=== PATIENT | male | born 1960 | race Caucasian/White ===

== ENCOUNTER 2024-09-02 00:35 | Emergency (ER) | payer MEDICARE, SELFPAY ==
[2024-09-02 00:36] VITALS: BP 154/97; PULSE 106; RESP 22; TEMP 36.7; O2SAT 100; BMI 19.3
[2024-09-02 01:36] VITALS: BP 116/103; PULSE 98; RESP 18; O2SAT 98
--- NOTE | 2024-09-02 01:40 | RAD_ITS ---
PROCEDURE: CHEST PA AND LATERAL 09/02/2024 REASON FOR EXAM: DYSPNEA TECHNIQUE: CHEST PA AND LATERAL COMPARISON: No FINDINGS: Normal heart size. Hyperinflated lungs. No consolidation, effusion, or pneumothorax. RAD/Chest PA and Lateral IMPRESSION: Emphysema. No acute airspace process. Reading Location: [place] [id number]
--- NOTE | 2024-09-02 01:40 | RAD_ITS ---
PROCEDURE: CHEST PA AND LATERAL 09/02/2024 REASON FOR EXAM: DYSPNEA TECHNIQUE: CHEST PA AND LATERAL COMPARISON: No FINDINGS: Normal heart size. Hyperinflated lungs. No consolidation, effusion, or pneumothorax. RAD/Chest PA and Lateral IMPRESSION: Emphysema. No acute airspace process. Reading Location: [place] [id number]
[2024-09-02 01:48] LABS: Hematocrit 47.4 % (40-54); Hemoglobin 15.8 g/dL (13.0-16.5); Immature Granulocytes Count 0.040 X10^3/uL (0.0-0.0); Mean Corp Hgb Conc 33.3 g/dL (32-36); Mean Corpuscular Volume 85.4 fL (80-94); Mean Platelet Vol. 9.7 fl (6.2-12.0); NRBC Flagged by Analyzer 0 % (0-5); Platelet Count 228 K/mm3 (150-450); RBC Distribution Width CV 13.9 % (11.6-14.6); RBC Distribution Width SD 43.2 fl (35.1-43.9); Red Blood Count 5.55 M/mm3 (4.6-6.2); White Blood Count 11.0 K/mm3 (4.4-11.0)
[2024-09-02 02:00] VITALS: BP 101/70; PULSE 91; RESP 18; O2SAT 92
[2024-09-02 02:35] LABS: Anion Gap 12 (5-15); BUN 15 mg/dL (4-19); BUN/Creat Ratio 21.1 RATIO (10-20); Calcium,Total 9.6 mg/dL (7.6-11.0); Carbon Dioxide 24.3 mmol/L (21.0-32.0); Chloride 102 mmol/L (98-108); Estimated Creatinine Clearance 77.47 ml/min (50-250); Glucose 126 mg/dL (70-99); Magnesium 2.2 mg/dL (1.5-2.2); Potassium 4.0 mmol/L (3.3-5.1); Pro- Brain NATRIURETIC PEPTIDE 99 pg/mL (<=900)
[2024-09-02 03:00] VITALS: BP 110/77; PULSE 89; RESP 20; O2SAT 96
[2024-09-02 03:45] VITALS: O2SAT 92
--- NOTE | 2024-09-02 03:47 | EDS_ITS ---
HPI History of Present Illness Chief Complaint: Shortness of Breath Informant: spouse/S.O. and EMS Narrative Narrative: Patient is a 63-year-old male with past medical history of COPD/emphysema who continues to smoke. He states this evening he began to feel short of breath and he states that he was not having any improvement of his symptoms. reports that after he began to feel short of breath his anxiety worsened which seemed to worsen his symptoms. However as his shortness of breath would not improve and EMS was called. EMS placed him on oxygen which the patient states he does not typically require and gave him breathing treatments as well as IV steroid. Upon arrival to the ER the patient does report feeling better. He denies any known sick contacts. However with his increased shortness of breath he did have concern for potential infection and therefore was brought to the ER for evaluation [id number] Home Medications ?Medication ?Instructions ?Recorded ?Last Taken ?Type ipratropium 0.5 mg-albuterol 3 mg 3 ml inhalation Q6H PRN shortness 09/02/24 Unknown Rx (2.5 mg base)/3 mL nebulization of breath or wheezing #180 mL soln lisinopril 5 mg tablet 5 mg PO DAILY 09/02/24 Unkno wn History prednisone 20 mg tablet 40 mg (2 x 20 mg) PO DAILY 5 days 09/02/24 Unknown Rx #10 tabs Allergy/AdvReac Type Severity Reaction Status Date / Time No Known Allergies Allergy Verified 09/02/24 00:39 Surgical History (Updated 09/02/24 @ 00:52 by Shelbie Matt) H/O hernia repair Social History Smoking Status: Current every day smoker tobacco type: cigarettes ROS ROS ED Constitutional Constitutional ED: Reports other Details: Positive fatigue ; Denies chills or fever(s) ENT ENT ED: Denies sore throat Cardiovascular Cardiovascular: Denies chest pain Respiratory/Chest Respiratory/Chest: Reports cough, dyspnea and dyspnea on exertion Gastrointestinal Gastrointestinal: Reports abdominal pain and other Details: Patient reports that this is chronic in nature ; Denies diarrhea, nausea or vomiting Genitourinary Genitourinary ED: Denies dysuria Musculoskeletal Musculoskeletal: Denies back pain or myalgias Integumentary Denies rash Neurologic Neurologic: Denies headache(s) Psychiatric Psychiatric: Reports anxiety Hematologic/Lymphatic Hematologic/Lymphatic: Denies easy bleeding or easy bruising Allergic/Immunologic Allergic/Immunologic ED: Denies mouth swelling or tongue swelling EXAM Physical Exam Const Vital Signs: 09/02/24 00:36 09/02/24 00:54 09/02/24 01:36 Temperature 98.1 F Temperature Source Oral Pulse Rate 106 H 98 Respiratory Rate 22 H 18 Respiratory Effort Normal Blood Pressure 154/97 H 116/103 H Blood Pressure Mean 116 107 Pulse Ox 100 98 Oxygen Delivery Method Nasal Cannula Room Air Oxygen Flow Rate (L/min) 10 09/02/24 02:00 09/02/24 03:00 09/02/24 03:57 Temperature 98.3 F Temperature Source Pulse Rate 91 89 94 Respiratory Rate 18 20 H 18 Respiratory Effort Blood Pressure 101/70 110/77 95/60 Blood Pressure Mean 80 88 71 Pulse Ox 92 96 95 Oxygen Delivery Method Room Air Oxygen Flow Rate (L/min) Positive well nourished and well developed General Appearance ED: well developed; Negative for pallor HEENT HEENT Narrative: No tongue or lip swelling no oral lesions no airway edema or compromise Eyes PERRL and EOMs intact bilaterally General Eye ED: Negative for scleral icterus Neck supple and no JVD Chest Wall palpation of chest normal Chest Narrative: No bony deformity or crepitance of the chest wall noted Resp Resp Narrative: Patient has mild respiratory distress with tachypnea and mild accessory muscle use Breath sounds are diminished throughout with faint rhonchi and wheezes noted in the bilateral lower lobes slightly greater on the right Cardio regular rate and regular rhythm Rate: other Other Details: Radial and carotid pulses are equal and symmetric Extremity normal to inspection Extremity Narrative: No asymmetric edema no pitting edema negative Homans' sign bilaterally Neuro oriented x3, CN's II-XII intact bilaterally and no sensory deficits noted Sensorium / Orientation: alert Motor Exam: strength 5/5 throughout Psych Mood & Affect: anxious Skin no rashes or lesions noted General Skin Exam: Negative for jaundice or pallor MDM MDM MDM Narrative Medical decision making narrative: Patient arrived to the ER and in mild respiratory distress. With this he was requiring supplemental nasal cannula oxygen to keep his sats greater than 90%. With his history of COPD/emphysema and now worsening shortness of breath there is concern for COPD exacerbation versus pneumonia versus pneumothorax versus congestive heart failure. Secondary to his basic labs with a chest x-ray were obtained. Patient's proBNP is normal and this correlates with his x-ray which revealed no obvious pleural effusion or signs of vascular congestion. Patient also did not have findings for acute blood loss anemia or clinically significant electrolyte abnormality or DEBBIE. Chest x-ray revealed changes consistent with eczema but no acute pathology such as pneumonia or pneumothorax. After patient received steroids and DuoNeb from EMS he did have improvement of his symptoms and his pulse ox was 90 to 92% on room air. The patient was ambulated and his pulse ox remained 90 to 92% on room air. Therefore at this time as the patient's had improvement of symptoms and is no longer requiring supplemental oxygen I do not feel there is need for further workup in the ER or admission and he is safe for discharge with symptomatic care History & Record Review Discussion w/independent historian: EMS personnel, Patient and Significant other Lab Data Attestation: I reviewed the patient's lab results. Labs: Laboratory Results - last 24 hr 09/02/24 00:41 WBC 11.0 RBC 5.55 Hgb 15.8 Hct 47.4 MCV 85.4 MCH 28.5 MCHC 33.3 RDW Std Deviation 43.2 RDW Coeff of Waldemar 13.9 Plt Count 228 MPV 9.7 Immature Gran % (Auto) 0.400 Neut % (Auto) 67.1 Lymph % (Auto) 21.5 [place] % (Auto) 8.4 Eos % (Auto) 2.0 Baso % (Auto) 0.6 Absolute Neuts (auto) 7.4 Absolute Lymphs (auto) 2.37 Nucleated RBC % 0 Sodium 138 Potassium 4.0 Chloride 102 Carbon Dioxide 24.3 Anion Gap 12 BUN 15 Creatinine 0.72 Estim Creat Clear Calc 77.47 Est GFR (MDRD) Non-Af 101 BUN/Creatinine Ratio 21.1 H Glucose 126 H Calcium 9.6 Magnesium 2.2 NT pro BNP II 99 Radiography Diagnostic Testing: Clinical Impression(s) from Imaging Studies Chest X-Ray 09/02/24 01:40 IMPRESSION: Emphysema. No acute airspace process. Reading Location: [place] [address] Chest x-ray as interpreted by the emergency medicine physician reveals emphysematous changes without acute infiltrate pneumothorax or pleural effusion Discharge Plan Triage Chief Complaint: Shortness of Breath ED Provider: Newton Hemphill Dx/Rx/DC Orders Clinical Impression: Acute exacerbation of chronic obstructive pulmonary disease, Tobacco use Instructions: COPD: Wheezing and Chest Tightness, COPD Controlled Breathing Dc Prescriptions: New ipratropium-albuterol 0.5 mg-3 mg(2.5 mg base)/3 mL solution for nebulization 3 ml inhalation Q6H PRN (Reason: shortness of breath or wheezing) Qty: 180 0RF prednisone 20 mg tablet 40 mg PO DAILY 5 Days Qty: 10 0RF No Action lisinopril 5 mg tablet 5 mg PO DAILY Primary Care Provider: Lamont Wall Referrals: Lamont Wall DO [Primary Care Provider] - Activity Restrictions/Additional Instructions: Please use the albuterol inhaler as needed for shortness of breath while you are out and about. Use the DuoNeb up to 4 times a day in the home nebulizer if you have shortness of breath while there. Continue the steroids to reduce inflammation. Return to the ER should you have any further concerns Print Language: Albanian Disposition Disposition: Home, Self Care Discharge Date/Time: 09/02/24 04:03
[2024-09-02 03:57] VITALS: BP 95/60; PULSE 94; RESP 18; TEMP 36.8; O2SAT 95
[2024-09-02] MEDS: Albuterol Sulfate 8 gm Inhaler (60 puffs) 2 PUFF INHALATION (04:01)
== END 2024-09-02 04:03 | disposition home or self-care (01) ==
PROVIDERS: Emergency Provider Emergency Medicine; PCP Family Medicine; Visit Provider Emergency Medicine
DX: J44.1 Chronic obstructive pulmonary disease with (acute) exacerbation (principal); F41.9 Anxiety disorder, unspecified; F17.210 Nicotine dependence, cigarettes, uncomplicated
CPT/HCPCS: 71046; 80048; 83735; 83880; 85025; 96374; 96375; 99284; A4216; J2405

== ENCOUNTER 2024-12-18 06:16 | Emergency (ER) | payer MEDICARE, SELFPAY ==
[2024-12-18] VITALS (8 sets, daily range): BP systolic 99–152; BP diastolic 68–103; PULSE 90–104; RESP 14–32; TEMP 36.4–36.8; O2SAT 86–100; BMI 37.0
--- NOTE | 2024-12-18 06:22 | EKG12_ITS ---
Test Reason : SOB Blood Pressure : */* mmHG Vent. Rate : 96 BPM Atrial Rate : 96 BPM P-R Int : 144 ms QRS Dur : 92 ms QT Int : 376 ms P-R-T Axes : 82 86 78 degrees QTcB Int : 475 ms Normal sinus rhythm Normal ECG Confirmed by ANNA SANDY, JOSE ([id number]), editor & co founder LAURI BHAKTA ([id number]) on 12/19/2024 8:30:59 AM Referred By: Confirmed By: JOSE CASTILLO MD
--- NOTE | 2024-12-18 06:25 | EX.ED.DYSGE1 ---
HPI History of Present Illness Chief Complaint: Shortness of Breath Narrative Narrative: Patient is a 64-year-old male with past medical history of COPD chronically on 2 L nasal cannula who presents to the emergency department the chief complaint of difficulty breathing. According the patient he woke up this morning and developed some difficulty breathing he states he tried a breathing treatment at home and this did not help therefore he called EMS to have him brought here. According to EMS he was in the low 90s on his oxygen. Patient states he is not on any blood thinning medications denies any recent travel history denies any history of blood clots. He states that his legs have been swelling more than normal for himself. He denies any history of heart failure [facility] Medical History COPD (chronic obstructive pulmonary disease) Home Medications ?Medication ?Instructions ?Recorded ?Last Taken ?Type ipratropium 0.5 mg-albuterol 3 mg 3 ml inhalation Q6H PRN shortness 09/02/24 Unknown Rx (2.5 mg base)/3 mL nebulization of breath or wheezing #180 mL soln lisinopril 5 mg tablet 5 mg PO DAILY 09/02/24 Unknown History aspirin 81 mg tablet,delayed 81 mg PO DAILY 12/18/24 Unknown History release (Adult Low Dose Aspirin) doxycycline hyclate 100 mg capsule 100 mg PO BID #14 caps 12/18/24 Unknown Rx hydroxyzine HCl 25 mg tablet 25 mg PO BID 12/18/24 Unknown History prednisone 50 mg tablet 50 mg PO DAILY #4 tabs 12/18/24 Unknown Rx Allergy/AdvReac Type Severity Reaction Status Date / Time No Known Allergies Allergy Verified 12/18/24 06:55 Surgical History H/O hernia repair Social History Smoking Status: Current every day smoker tobacco type: cigarettes ROS ROS ED ROS Narrative Constitutional: Denies any fevers, chills, headaches Eyes: Denies double vision Cardiovascular: Denies chest pain or palpitations Respiratory: Complains of shortness of breath denies coughing Abdomen: Denies abdominal pain nausea vomit diarrhea : Denies any urinary symptoms Neurological: Denies any numbness, weakness or tingling Musculoskeletal: Denies back pain Skin: Denies any rashes or lesions EXAM Physical Exam Narrative Exam Narrative: General: Patient was lying in bed rest comfortably did not appear to be in acute distress Head: Atraumatic, normocephalic Eyes: PERRL bilaterally, EOMI bilaterally, no conjunctival injection noted Neck: Soft, supple, trachea midline Cardiovascular: Patient tachycardic with a regular rhythm Respiratory: Patient has diminished lung sounds bilaterally however does have very faint end expiratory wheezing noted bilaterally Abdomen: No tenderness palpation, soft, nondistended Extremities: +4/5 strength noted to bilateral upper and lower extremities, radial pulses +2/4 in the bilateral extremities Neurological: Patient following commands that he was at [facility] year is 2024 Skin: Warm, dry, intact no rashes or lesions noted Const Vital Signs: 12/18/24 06:16 12/18/24 06:17 12/18/24 06:30 Temperature 98.2 F Temperature Source Temporal Pulse Rate 97 104 H Respiratory Rate 18 32 H Respiratory Effort Blood Pressure 152/103 H Blood Pressure Mean 119 Pulse Ox 99 98 Oxygen Delivery Method Nasal Cannula Nasal Cannula Nasal Cannula Oxygen Flow Rate (L/min) 3 Fraction of Inspired Oxygen (FIO2) 3 3 12/18/24 06:30 12/18/24 06:42 12/18/24 07:34 Temperature 97.6 F L Temperature Source Oral Pulse Rate 99 95 Respiratory Rate 24 H 14 Respiratory Effort Short of Breath Blood Pressure 99/72 Blood Pressure Mean 81 Pulse Ox 100 Oxygen Delivery Method Room Air Oxygen Flow Rate (L/min) Fraction of Inspired Oxygen (FIO2) MDM MDM MDM Narrative Medical decision making narrative: Patient is a 64-year-old male who presents to the emergency department the chief complaint of shortness of breath. On the differential diagnose includes but not limited to COPD exacerbation, flash pulmonary edema, CHF, ACS, pneumonia, upper respiratory infection secondary to viral etiology. Once workup is obtained reviewed he will be reevaluated. Patient be given 3 DuoNebs, Solu-Medrol and a liter of IV fluids which were ordered at 6:22 AM as there is concern for volume overload state therefore 30 cc/kg bolus of IV fluids will not be given. Not quite yet as these 2 patients patient CBC was reviewed and showed no evidence leukocytosis white blood count normal at 9, hemoglobin is 15, platelet count was noted be 194. Patient INR normal at 0.9, PT of 12.6. Patient sodium is 139, potassium normal 4.2, creatinine was 0.69. Patient's AST and ALT are 22 and 21 respectively troponin was normal at 16 with a proBNP of 109. Patient's EKG was reviewed which showed sinus rhythm with a rate of 96 bpm with SC interval 144. Patient's chest x-ray reviewed by myself and by radiology showed no acute cardiopulmonary processes increased lung volumes were noted. Patient ambulated here in the emergency department and had no hypoxia no tachycardia and is feeling better he would like to go home. I did offer admission for COPD exacerbation, generalized weakness and he states that he wants to go home and he will return with worsening symptoms or other concerns. Patient will be placed on doxycycline and prednisone these were sent to the pharmacy. Delta troponin is pending this was signed out to oncoming provider see note for addendum in details likely plan will be he will be discharged home. Lab Data Labs: Laboratory Results - last 24 hr 12/18/24 12/18/24 06:25 06:45 WBC 9.0 RBC 5.33 Hgb 15.0 Hct 46.0 MCV 86.3 MCH 28.1 MCHC 32.6 RDW Std Deviation 45.0 H RDW Coeff of Waldemar 14.2 Plt Count 194 MPV 9.2 Immature Gran % (Auto) 0.600 Neut % (Auto) 72.4 H Lymph % (Auto) 15.2 L [place] % (Auto) 8.9 Eos % (Auto) 2.3 Baso % (Auto) 0.6 Absolute Neuts (auto) 6.5 Absolute Lymphs (auto) 1.37 Nucleated RBC % 0 PT 12.6 INR 0.9 APTT 25.4 Sodium 139 Potassium 4.2 Chloride 105 Carbon Dioxide 22.8 Anion Gap 11 BUN 23 H Creatinine 0.69 L Estim Creat Clear Calc 112.98 Est GFR (MDRD) Non-Af 102 BUN/Creatinine Ratio 33.0 H Glucose 124 H Lactic Acid 1.6 Calcium 9.5 Total Bilirubin 0.24 AST 22 ALT 21 Alkaline Phosphatase 76 Troponin T High Sens 16 NT pro BNP II 109 Total Protein 6.8 Albumin 4.2 Globulin 2.6 Albumin/Globulin Ratio 1.6 Radiography Diagnostic Testing: Clinical Impression(s) from Imaging Studies Chest X-Ray 12/18/24 07:15 IMPRESSION: Increased lung volumes with no acute infiltrate. [facility] T[facility] Chief Complaint: Shortness of Breath ED Provider: Nam Brownlee Dx/Rx/DC Orders Clinical Impression: COPD exacerbation, Chronic hypoxic respiratory failure Prescriptions: New prednisone 50 mg tablet 50 mg PO DAILY Qty: 4 0RF doxycycline hyclate 100 mg capsule 100 mg PO BID Qty: 14 0RF No Action hydroxyzine HCl 25 mg tablet 25 mg PO BID aspirin [Adult Low Dose Aspirin] 81 mg tablet,delayed release (DR/EC) 81 mg PO DAILY lisinopril 5 mg tablet 5 mg PO DAILY ipratropium-albuterol 0.5 mg-3 mg(2.5 mg base)/3 mL solution for nebulization 3 ml inhalation Q6H PRN (Reason: shortness of breath or wheezing) Qty: 180 0RF Primary Care Provider: Lamont Wall Referrals: Lamont Wall DO [Primary Care Provider, Medical] Activity Restrictions/Additional Instructions: Follow-up your doctor in the outpatient setting. Return with worsening symptoms or other concerns. Your blood work did not show any acute findings here today. Your chest x-ray was normal. Take antibiotics as prescribed and take steroids as prescribed starting tomorrow as you are given a dose here today. Print Language: Japanese Disposition Disposition: Home, Self Care
[2024-12-18 06:37] LABS: Hematocrit 46.0 % (40-54); Hemoglobin 15.0 g/dL (13.0-16.5); Immature Granulocytes Count 0.050 X10^3/uL (0.0-0.0); Mean Corp Hgb Conc 32.6 g/dL (32-36); Mean Corpuscular Volume 86.3 fL (80-94); Mean Platelet Vol. 9.2 fl (6.2-12.0); NRBC Flagged by Analyzer 0 % (0-5); Platelet Count 194 K/mm3 (150-450); RBC Distribution Width CV 14.2 % (11.6-14.6); RBC Distribution Width SD 45.0 fl (35.1-43.9); Red Blood Count 5.33 M/mm3 (4.6-6.2); White Blood Count 9.0 K/mm3 (4.4-11.0)
[2024-12-18 06:45] LABS: Prothrombin Time (Protime)PT. 12.6 SECONDS (11.7-14.9)
--- OUTSIDE RECORDS SUMMARY | 2024-12-18 06:45 | XMS RPT_ITS | CCD ---
Author Organization [facility] Care Team Providers Care Customer Relationship Specialist Name Role Phone JAUN OLSON DO Primary Care Physician JAUN OLSON DO Attending Unavailable JAUN OLSON DO Primary Care Unavailable EDITH PAIGE MD Attending Unavailable JAUN OLSON DO Primary Care Unavailable JAUN OLSON DO Primary Care Unavailable MANPREET NORMAN Admitting GARCÍA Salgado MD Referring Unavailable MANPREET NORMAN Attending Dr. Newton Marino DO Emergency Provider Dr. Jaun Olson DO Primary Care Provider [phone] Newton Hemphill Attending Unavailable Jaun Olson Primary Care Unavailable Medications Current Medications Medication Drug Class(es) Dates Sig (Normalized) Sig (Original) acetaminophen 325 mg oral tablet (5 sources) Start: 02-23-2015 Tylenol 325 mg oral tablet Dose : 650 mg = 2 tab(s), Oral, q4h, PRN Pain, scale 1-4 ( Mild ), 0 Refill(s) Start Date: 02/23/15 Status: Ordered albuterol 0.83 mg/ml inhalation solution (5 sources) beta2-Adrenergic Agonist Start: 12-29-2022 take 1 dose by inhalation every six hours albuterol 2.5 mg/3 mL (0.083%) inhalation solution Dose : 2.5 mg = 3 mL, Nebulized, q6hr, # 1,080 mL, 3 Refill(s), Pharmacy: [id number], COPD - Chronic obstructive pulmonary disease, 175.3, cm, 07/18/22 8:50:00 EDT, Height, kg, 07/18/22 8:50:00 EDT, Dosing Weight Start Date: 12/29/22 Status: Ordered Start: 05-16-2019 End: 09-13-2019 take 1 dose by inhalation every six hours albuterol 2.5 mg/3 mL (0.083%) inhalation solution Dose : 2.5 mg = 3 mL, Nebulized, q6hr, # 360 mL, 3 Refill(s), Pharmacy: [facility], COPD - Chronic obstructive pulmonary disease, 173.5, cm, 05/16/19 9:43:00 EDT, Height, kg, 05/16/19 9:43:00 EDT, Dosing Weight Start Date: 05/16/19 Stop Date: 09/13/19 Status: Ordered Start: 05-16-2019 End: 09-13-2019 take 1 dose by inhalation every six hours albuterol 2.5 mg/3 mL (0.083%) inhalation solution Dose : 2.5 mg = 3 mL, Nebulized, q6hr, # 360 mL, 3 Refill(s), Pharmacy: [facility], COPD - Chronic obstructive pulmonary disease, 173.5, cm, 05/16/19 9:43:00 EDT, Height, kg, 05/16/19 9:43:00 EDT, Dosing Weight Start Date: 05/16/19 Stop Date: 09/13/19 Status: Ordered albuterol 0.833 mg/ml / ipratropium bromide 0.167 mg/ml inhalation solution (1 source) Anticholinergic, beta2-Adrenergic Agonist Start: 09-02-2024 take 1 mL by inhalation every six hours as needed for wheezing Ipratropium-Albuterol 0.5 mg-3 mg(2.5 mg base)/3 mL solution for nebulization Active 3 mL INHALATION EVERY 6 HOURS as needed for shortness of breath or wheezing 180 0 September 02, 2024 12:00am albuterol MDI (90 mcg/inh) CFC free inhalation aerosol (5 sources) Start: 12-29-2022 take 2 puff(s) by inhalation every four hours as needed for wheezing albuterol MDI (90 mcg/inh) CFC free inhalation aerosol 2 puff(s), Inhalation, q4h, PRN as needed for wheezing, # 6.7 gram(s), 3 Refill(s), Pharmacy: [id number], Acute exacerbation of COPD, 175.3, cm, 07/18/22 8:50:00 EDT, Height, kg, 07/18/22 8:50:00 EDT, Dosing Weight Start Date: 12/29/22 Status: Ordered Start: 06-27-2021 End: 10-25-2021 take 2 puff(s) by inhalation every four hours as needed for wheezing albuterol MDI (90 mcg/inh) CFC free inhalation aerosol 2 puff(s), Inhalation, q4h, PRN as needed for wheezing, # 18 gram(s), 3 Refill(s), Pharmacy: [facility], Acute exacerbation of COPD, 175.3, cm, 06/27/21 11:04:00 EDT, Height, kg, 06/27/21 11:04:00 EDT, Dosing Weight Start Date: 06/27/21 Stop Date: 10/25/21 Status: Ordered Start: 05-16-2019 End: 09-13-2019 take 2 puff(s) by inhalation every four hours as needed for wheezing albuterol MDI (90 mcg/inh) CFC free inhalation aerosol 2 puff(s), Inhalation, q4h, PRN as needed for wheezing, # 18 gram(s), 3 Refill(s), Pharmacy: [facility], Acute exacerbation of COPD, 173.5, cm, 05/16/19 9:43:00 EDT, Height, kg, 05/16/19 9:43:00 EDT, Dosing Weight Start Date: 05/16/19 Stop Date: 09/13/19 Status: Ordered aspirin 81 mg delayed release oral tablet (2 sources) Platelet Aggregation Inhibitor, Nonsteroidal Anti-inflammatory Drug Start: 01-02-2023 aspirin 81 mg ora l delayed release tablet Dose : 81 mg = 1 tab(s), Oral, Daily, 0 Refill(s) Start Date: 01/02/23 Status: Ordered Start: 10-08-2019 aspirin 81 mg oral delayed release tablet Dose : 81 mg = 1 tab(s), Oral, qDay, # 30 tab(s), 0 Refill(s) Start Date: 10/08/19 Status: Ordered Breatherite Mdi Spacer (5 sources) Start: 10-24-2018 Breatherite i Spacer use DIRECTED Start Date: 10/24/18 Status: Ordered cefdinir 300 mg oral capsule (1 source) Cephalosporin Antibacterial Start: 01-05-2023 End: 01-08-2023 cefdinir 300 mg oral capsule Dose : 300 mg = 1 cap(s), Oral, q12h, X 3 day(s), # 6 cap(s), 0 Refill(s), 01/08/23 12:55:00 PM EST, Pharmacy: [id number], 175.3, cm, 01/02/23 17:21:00 EDT, Height, 61.4, kg, 01/02/23 17:21:00 EDT, Dosing Weight Start Date: 01/05/23 Stop Date: 01/08/23 Status: Ordered cyclobenzaprine hydrochloride 10 mg oral tablet (3 sources) Muscle Relaxant Start: 04-18-2021 cyclobenzaprin e 10 mg oral tablet Dose : 10 mg = 1 tab(s), Oral, TID, PRN for muscle spasm, 0 Refill(s) Start Date: 09/21/21 Status: Ordered DME MISCellaneous (4 sources) Start: 12-25-2021 DME MISCellane ous See Instructions, hose and mouth piece for nebulizer, # 1 EA, 11 Refill(s), COPD - Chronic obstructive pulmonary disease Start Date: 12/25/21 Status: Ordered Start: 12-20-2021 DME MISCellane ous See Instructions, hose and mouth piece for nebulizer, # 1 EA, 11 Refill(s), COPD - Chronic obstructive pulmonary disease, 175.3, cm, 11/22/21 7:08:00 EDT, Height, 58.2 Start Date: 12/20/21 Status: Ordered Fish Oils (3 sources) Start: 09-21-2021 take 1 dose by mouth once daily [place]-3 Fish Oil Dose : 1,000 mg =, Oral, qDay, 0 Refill(s) Start Date: 09/21/21 Status: Ordered gabapentin 100 mg oral capsule (1 source) Anti-epileptic Agent Start: 09-21-2021 take 1 capsule by mouth at bedtime, then take 1 capsule by mouth twice daily gabapentin 100 mg oral capsule TAKE 1 CAPSULE BY MOUTH AT BEDTIME then increase to one TWICE DAILY as drowsiness permits Start Date: 09/21/21 Status: Ordered lisinopril 5 mg oral tablet (6 sources) Angiotensin Converting Enzyme Inhibitor Start: 09-02-2024 take 1 tablet by mouth once daily Lisinopril 5 mg tablet Active 5 mg PO DAILY September 02, 2024 12:00am Start: 12-29-2022 lisinopril 5 m g oral tablet Dose : 5 mg = 1 tab(s), Oral, qDay, # 90 tab(s), 1 Refill(s), Pharmacy: [id number], Hypertension, 175.3, cm, 07/18/22 8:50:00 EDT, Height, kg, 07/18/22 8:50:00 EDT, Dosing Weight Start Date: 12/29/22 Status: Ordered Start: 01-05-2022 End: 07-04-2022 lisinopril 5 mg oral tablet Dose : 5 mg = 1 tab(s), Oral, qDay, # 90 tab(s), 1 Refill(s), Pharmacy: [facility], Hypertension, 175.3, cm, 12/27/21 15:07:00 EDT, Height, kg, 12/27/21 15:07:00 EDT, Dosing Weight Start Date: 01/05/22 Stop Date: 07/04/22 Status: Ordered Start: 04-04-2021 End: 10-01-2021 lisinopril 5 mg oral tablet Dose : 5 mg = 1 tab(s), Oral, qDay, # 30 tab(s), 5 Refill(s), Pharmacy: [facility], Hypertension, 175, cm, 04/04/21 9:09:00 EST, Height, kg, 04/04/21 9:09:00 EST, Dosing Weight Start Date: 04/04/21 Stop Date: 10/01/21 Status: Ordered Multivitamin preparation (5 sources) Start: 02-21-2015 take 1 tablet by mouth once daily Multivitamin Dose = 1 tab(s), Oral, Daily, 0 Refill(s) Start Date: 02/21/15 Status: Ordered predniSONE 20 mg oral tablet (3 sources) Start: 09-02-2024 take 2 tablets by mouth once daily Prednisone 20 mg tablet Active 40 mg PO DAILY 10 5 0 September 02, 2024 12:00am Start: 02-11-2022 End: 02-12-2022 predniSONE 20 mg oral tablet See Instructions, 3 p.o. day 1 and 2, 2 p.o. day 3 and 4, 1 p.o. day 5 and 6, # 12 tab(s), 0 Refill(s), 02/12/22 12:40:00 EST, RSV - Respiratory syncytial virus infection Start Date: 02/11/22 Stop Date: 02/12/22 Status: Ordered Start: 04-04-2021 End: 04-10-2021 prednisone 10mg tab (TAPER) Taper 11-55-46-30-20-10 x 1 day, Oral, qAM, # 21 tab(s), 0 Refill(s), Pharmacy: [facility], Left shoulder pain Back pain of lumbar region with sciatica, 175, cm, 04/04/21 9:09:00 EST, Height, kg, 04/04/21 9:09:00 EST, Dosing Weight Start Date: 04/04/21 Stop Date: 04/10/21 Status: Ordered Sudafed (3 sources) alpha-Adrenergic Agonist Start: 09-21-2021 take 1 tablet by mouth every six hours Sudafed 1 tab, Oral, q6hr, 0 Refill(s) Start Date: 09/21/21 Status: Ordered Trelegy Ellipta 100 mcg-62.5 mcg-25 mcg/inh inhalation powder (3 sources) Start: 12-29-2022 take 1 dose by mouth once daily Trelegy Ellipta 100 mcg-62.5 mcg-25 mcg/inh inhalation powder Dose = 1 puff(s), Inhalation, qDay, at the same time every day. Following administration, rinse mouth with water after use (do not swallow)., # 2 EA, 1 Refill(s), Pharmacy: [id number], 175.3, cm, 07/18/22 8:50:00 EDT, Height, kg, 07/18/22 8:50:00 EDT, Dosing Weight Start Date: 12/29/22 Status: Ordered Start: 06-27-2021 End: 06-22-2022 take 1 dose by mouth once daily Trelegy Ellipta 100 mcg-62.5 mcg-25 mcg/inh inhalation powder Dose = 1 puff(s), Inhalation, qDay, at the same time every day. Following administration, rinse mouth with water after use (do not swallow)., # 1 EA, 11 Refill(s), Pharmacy: [facility], 175.3, cm, 06/27/21 11:04:00 EDT, Height, kg, ... Start Date: 06/27/21 Stop Date: 06/22/22 Status: Ordered Vitamin C 500 mg oral tablet (3 sources) Start: 09-21-2021 Vitamin C 500 mg oral tablet Dose : 500 mg = 1 tab(s), Oral, qDay, # 30 tab(s), 0 Refill(s) Start Date: 09/21/21 Status: Ordered Vitamin D3 25 mcg (1000 intl units) oral capsule (3 sources) Start: 09-21-2021 Vitamin D3 25 mcg (1000 intl units) oral capsule Dose : 25 mcg = 1 cap(s), Oral, Daily, 0 Refill(s) Start Date: 09/21/21 Status: Ordered Zinc (3 sources) Start: 09-21-2021 take 1 tablet by mouth once daily Zinc 1 tab, Oral, qDay, 0 Refill(s) Start Date: 09/21/21 Status: Ordered Completed/Discontinued Medications Medication Drug Class(es) Dates Sig (Normalized) Sig (Original) hydrOXYzine hydrochloride 10 mg oral tablet (1 source) Antihistamine Start: 06-27-2021 End: 09-25-2021 hydrOXYzine hydrochloride 10 mg oral tablet Dose : 10 mg = 1 tab(s), Oral, BID, # 60 tab(s), 2 Refill(s), Pharmacy: [facility], 175.3, cm, 06/27/21 11:04:00 EDT, Height Start Date: 06/27/21 Stop Date: 09/25/21 Status: Ordered traMADol hydrochloride 50 mg oral tablet (2 sources) Opioid Agonist Start: 07-18-2022 End: 07-21-2022 traMADol 50 mg oral tablet Dose : 50 mg = 1 tab(s), Oral, q6hr, # 12 tab(s), 0 Refill(s), Pharmacy: [facility], Back pain of lumbar region with sciatica, 175.3, cm, 07/18/22 8:50:00 EDT, Height, 58.7 Start Date: 07/18/22 Stop Date: 07/21/22 Status: Ordered Start: 02-11-2022 traMADol 50 mg oral tablet Dose : 50 mg = 1 tab(s), Oral, q12h, PRN for pain, # 12 tab(s), 0 Refill(s), 59.5 Start Date: 02/11/22 Status: Ordered Trelegy Ellipta inhalation powder (2 sources) Start: 12-03-2018 End: 11-28-2019 take 1 dose by mouth once daily Trelegy Ellipta inhalation powder Dose = 1 puff(s), Inhalation, qDay, at the same time every day. Following administration, rinse mouth with water after use (do not swallow)., # 1 EA, 11 Refill(s) Start Date: 12/03/18 Stop Date: 11/28/19 Status: Ordered Problems Active Problems Problem Classification Problem Date Documented Da te Episodic/Chronic Abdominal hernia (5 sources) Right inguinal hernia 09-19-2019 Episodic Abdominal pain (5 sources) Right inguinal pain 10-08-2019 Episodic Anxiety disorders (5 sources) Generalized anxiety disorder 05-16-2019 Chronic Chronic obstructive pulmonary disease and bronchiectasis (7 sources) Chronic obstructive lung disease; Translations: [Chronic obstructive pulmonary disease, unspecified] Onset: 01-03-2023 10-06-2019 Chronic Disorders of teeth and jaw (5 sources) Toothache 10-06-2019 Episodic Essential hypertension (6 sources) Hypertensive disorder; Translations: [Essential hypertension] Onset: 01-03-2023 02-21-2015 Chronic Fever of unknown origin (1 source) Fever; Translations: [Fever, unspecified] Onset: 01-03-2023 Episodic Gastrointestinal hemorrhage (5 sources) Hematochezia 04-04-2021 Episodic Other ear and sense organ disorders (5 sources) Impacted cerumen 05-16-2019 Episodic Other lower respiratory disease (1 source) Shortness of breath; Translations: [Shortness of breath] Onset: 09-10-2024 Episodic Other non-traumatic joint disorders (5 sources) Shoulder pain 04-04-2021 Episodic Other non-traumatic joint disorders (3 sources) Hip pain 09-21-2021 Episodic Spondylosis; intervertebral disc disorders; other back problems (5 sources) Lumbago with sciatica 04-04-2021 Episodic Unclassified (11 sources) Patient encounter status 10-06-2019 Viral infection (1 source) Respiratory syncytial virus infection; Translations: [Respiratory syncytial virus as the cause of diseases classified elsewhere] Onset: 02-11-2022 Episodic Past or Other Problems Problem Classification Problem Date Documented Da te Episodic/Chronic Immunizations and screening for infectious disease (2 sources) Encounter for screening for other viral diseases; Translations: [Encounter for screening for other viral diseases] Onset: 07-19-2022 Episodic Other screening for suspected conditions (not mental disorders or infectious disease) (3 sources) Viral screening status; Translations: [Encounter for screening for malignant neoplasm of prostate] Onset: 07-19-2022 07-18-2022 Episodic Results Test Name Value Interpretation Reference Range Facility Absolute lymphocyte countOrd ered By: Newton Hemphill on 09-02-2024 Lymphocytes Auto (Unsp spec) [#/Vol] 2.37 10*3/uL 0.83-4.51 [facility] Absolute neutrophil countOrd ered By: Newton Hemphill on 09-02-2024 Neutrophils (Bld) [#/Vol] 7.4 10*3/uL 2.0-7.7 [facility] Anion gap in Serum or Plasma Ordered By: Newton Hemphill on 09-02-2024 Anion gap [Moles/Vol] 12 mmol/L 5-15 [facility] Automated lymphocyte count a s percentage of total leukocytesOrdered By: Newton Hemphill on 09-02-2024 Lymphocytes/100 WBC Auto (Unsp spec) 21.5 % 19-41 [facility] BUN/creatinine ratioOrdered By: Newton Hemphill on 09-02-2024 Urea nitrogen/Creatinine [Mass ratio] 21.1 mg/mg High 12-22 [facility] Basic Metabolic Profile (BMP )on 09-02-2024 BUN/CRE 21.1 RATIO High 12-22 [facility] Comment on above: Performed By: #### L 100.0100, L500.2500, L501.5200, L503.7505 #### [facility] [address] [place], [address] Calcium [Mass/Vol] 9.6 mg/dL Normal 7.6-11.0 [facility] Comment on above: Performed By: #### L 100.0100, L500.2500, L501.5200, L503.7505 #### [facility] [address] [place], [address] Chloride [Moles/Vol] 102 mmol/L Normal 98-108 [facility] Comment on above: Performed By: #### L 100.0100, L500.2500, L501.5200, L503.7505 #### [facility] [address] [place], [address] CO2 [Moles/Vol] 24.3 mmol/L Normal 21.0-32.0 [facility] Comment on above: Performed By: #### L 100.0100, L500.2500, L501.5200, L503.7505 #### [facility] [address] [place], [address] Creatinine [Mass/Vol] 0.72 mg/dL Normal 0.70-1.20 [facility] Comment on above: Performed By: #### L 100.0100, L500.2500, L501.5200, L503.7505 #### [facility] [address] [place], [address] ECRCL 77.47 ml/min Normal 50-250 [facility] Comment on above: Performed By: #### L 100.0100, L500.2500, L501.5200, [id number] #### [facility] [address] [place], [address] GAP 12 Normal 5-15 [facility] Comment on above: Performed By: #### L 100.0100, L500.2500, L501.5200, L503.7505 #### [facility] [address] [place], [address] GFR/1.73 sq M.predicted among non-blacks MDRD (S/P/Bld) [Vol rate/Area] 101 mL/min/{1.73_m2} Normal >60 [facility] Comment on above: Result Comment: mL/m in/1.73m2 CKD-EPI Creatinine Equation (2020) Performed By: #### L 100.0100, L500.2500, L501.5200, L503.7505 #### [facility] [address] [place], [address] Glucose [Mass/Vol] 126 mg/dL High 70-99 [facility] Comment on above: Performed By: #### L 100.0100, L500.2500, L501.5200, L503.7505 #### [facility] [address] [place], [address] Potassium [Moles/Vol] 4.0 mmol/L Normal 3.3-5.1 [facility] Comment on above: Performed By: #### L 100.0100, L500.2500, L501.5200, L503.7505 #### [facility] [address] [place], [address] Sodium [Moles/Vol] 138 mmol/L Normal 133-145 [facility] Comment on above: Performed By: #### L 100.0100, L500.2500, L501.5200, L503.7505 #### [facility] [address] [place], [address] Urea nitrogen [Mass/Vol] 15 mg/dL Normal 4-19 [facility] Comment on above: Performed By: #### L 100.0100, L500.2500, L501.5200, L503.7505 #### [facility] [address] [place], [address] Basophil percentageOrdered B y: Newton Hemphill on 09-02-2024 Basophils/100 WBC (Bld) 0.6 % 0-1 [facility] CBC W/Diff, Automatedon -2024 Absolute Lymph 2.37 X10 3/uL Normal 0.83-4.51 [facility] Comment on above: Performed By: #### L 100.0100, L500.2500, L501.5200, L503.7505 #### [facility] [address] [place], [address] Absolute Neut 7.4 X10 3/uL Normal 2.0-7.7 [facility] Comment on above: Performed By: #### L 100.0100, L500.2500, L501.5200, L503.7505 #### [facility] [address] [place], [address] Basophils/100 WBC (Bld) 0.6 % Normal 0-1 [facility] Comment on above: Performed By: #### L 100.0100, L500.2500, L501.5200, L503.7505 #### [facility] [address] [place], [address] Eosinophils/100 WBC (Bld) 2.0 % Normal 0-5 [facility] Comment on above: Performed By: #### L 100.0100, L500.2500, L501.5200, L503.7505 #### [facility] [address] [place], [address] Erythrocyte distribution width (RBC) [Ratio] 13.9 % Normal 11.6-14.6 [facility] Comment on above: Performed By: #### L 100.0100, L500.2500, L501.5200, L503.7505 #### [facility] [address] [place], [address] Hematocrit (Bld) [Volume fraction] 47.4 % Normal 40-54 [facility] Comment on above: Performed By: #### L 100.0100, L500.2500, L501.5200, L503.7505 #### [facility] [address] [place], [address] Hemoglobin (Bld) [Mass/Vol] 15.8 g/dL Normal 13.0-16.5 [facility] Comment on above: Performed By: #### L 100.0100, L500.2500, L501.5200, L503.7505 #### [facility] [address] [place], [address] IG% 0.400 Normal 0.0-0.9 [facility] Comment on above: Result Comment: IG% - Immature Granulocytes (promyelocytes, myelocytes and metamyelocytes) > 1% indicates that a LEFT SHIFT is Present. Performed By: #### L 100.0100, L500.2500, L501.5200, L503.7505 #### [facility] [address] [place], [address] Lymphocytes/100 WBC (Bld) 21.5 % Normal 19-41 [facility] Comment on above: Performed By: #### L 100.0100, L500.2500, L501.5200, L503.7505 #### [facility] [address] [place], [address] MCH (RBC) [Entitic mass] 28.5 pg Normal 27.0-32.0 [facility] Comment on above: Performed By: #### L 100.0100, L500.2500, L501.5200, L503.7505 #### [facility] [address] [place], [address] MCHC (RBC) [Mass/Vol] 33.3 g/dL Normal 32-36 [facility] Comment on above: Performed By: #### L 100.0100, L500.2500, L501.5200, L503.7505 #### [facility] [address] [place], [address] MCV (RBC) [Entitic vol] 85.4 fL Normal 80-94 [facility] Comment on above: Performed By: #### L 100.0100, L500.2500, L501.5200, L503.7505 #### [facility] [address] [place], [address] Monocytes/100 WBC (Bld) 8.4 % Normal 0-10 [facility] Comment on above: Performed By: #### L 100.0100, L500.2500, L501.5200, L503.7505 #### [facility] [address] [place], [address] Neutrophils/100 WBC (Bld) 67.1 % Normal 47-70 [facility] Comment on above: Performed By: #### L 100.0100, L500.2500, L501.5200, L503.7505 #### [facility] [address] [place], [address] Nucleated RBC (Bld) [#/Vol] 0 10*3/uL Normal 0-5 [facility] Comment on above: Performed By: #### L 100.0100, L500.2500, L501.5200, L503.7505 #### [facility] [address] [place], [address] Platelet mean volume (Bld) [Entitic vol] 9.7 fL Normal 6.2-12.0 [facility] Comment on above: Performed By: #### L 100.0100, L500.2500, L501.5200, L503.7505 #### [facility] [address] [place], [address] Platelets (Bld) [#/Vol] 228 10*3/uL Normal 150-450 [facility] Comment on above: Performed By: #### L 100.0100, L500.2500, L501.5200, L503.7505 #### [facility] [address] [place], [address] RBC (Bld) [#/Vol] 5.55 10*6/uL Normal 4.6-6.2 [facility] Comment on above: Performed By: #### L 100.0100, L500.2500, L501.5200, L503.7505 #### [facility] [address] [place], [address] RDW SD 43.2 fl Normal 35.1-43.9 [facility] Comment on above: Performed By: #### L 100.0100, L500.2500, L501.5200, L503.7505 #### [facility] [address] [place], [address] WBC (Bld) [#/Vol] 11.0 10*3/uL Normal 4.4-11.0 [facility] Comment on above: Performed By: #### L 100.0100, L500.2500, L501.5200, L503.7505 #### [facility] [address] [place], [address] Carbon dioxide, total [Moles /volume] in Central venous bloodOrdered By: Newton Hemphill on 09-02-2024 CO2 [Moles/Vol] 24.3 mmol/L 21.0-32.0 [facility] Chest PA and Lateralon 09-02 Chest PA and Lateral [facility] Imaging Services [address] [place] [address] Chest PA and Lateral MR#: [id number] Acct: [id number] Name: RAUDEL VEGA Rep #: [id number] : 1960 M 63 From: Tao Cr MD PCP: Status: PRE ER Study: Chest PA and Lateral Date of Exam: 09/02/24 Exam# [id number] Ordering Dr: Newton Hemphill DO PROCEDURE: CHEST PA AND LATERAL 09/02/2024 REASON FOR EXAM: DYSPNEA TECHNIQUE: CHEST PA AND LATERAL COMPARISON: No FINDINGS: Normal heart size. Hyperinflated lungs. No consolidation, effusion, or pneumothorax. RAD/Chest PA and Lateral IMPRESSION: Emphysema. No acute airspace process. Reading Location: [place] [address] CC: Newton Hemphill DO Principal Embedded Software Engineer: Signed Normal [facility] Chloride assayOrdered By: Renuka Hemphill on 09-02-2024 Chloride [Moles/Vol] 102 mmol/L 98-108 [facility] Emergency Department Summary on 09-02-2024 Emergency Department Summary [facility] Medical Records Department [address] [place] [address] Emergency Department Summary 09/02/24 MR#: [id number] Acct: [id number] Name: RAUDEL VEGA Rep #: [id number] : 1960 63 From: Newton Hemphill DO PCP: Dr. Jaun Olson DO Status:DEP ER Location: ED HPI History of Present Illness Chief Complaint: Shortness of Breath Informant: spouse/S.O. and EMS Narrative Narrative: Patient is a 63-year-old male with past medical history of COPD/emphysema who continues to smoke. He states this evening he began to feel short of breath and he states that he was not having any improvement of his symptoms. reports that after he began to feel short of breath his anxiety worsened which seemed to worsen his symptoms. However as his shortness of breath would not improve and EMS was called. EMS placed him on oxygen which the patient states he does not typically require and gave him breathing treatments as well as IV steroid. Upon arrival to the ER the patient does report feeling better. He denies any known sick contacts. However with his increased shortness of breath he did have concern for potential infection and therefore was brought to the ER for evaluation [facility] Home Medications ???Medication ???Instructions ???Recorded ???Last Taken ???Type ipratropium 0.5 mg-albuterol 3 mg 3 ml inhalation Q6H PRN shortness 09/02/24 Unknown Rx (2.5 mg base)/3 mL nebulization of breath or wheezing #180 mL soln lisinopril 5 mg tablet 5 mg PO DAILY 09/02/24 Unknown His tory prednisone 20 mg tablet 40 mg (2 x 20 mg) PO DAILY 5 days 09/02/24 Unknown Rx #10 tabs Allergy/AdvReac Type Severity Reaction Status Date / Time No Known Allergies Allergy Verified 09/02/24 00:39 Surgical History (Updated 09/02/24 @ 00:52 by Shelbie Matt) H/O hernia repair Social History Smoking Status: Current every day smoker tobacco type: cigarettes ROS ROS ED Constitutional Constitutional ED: Reports other Details: Positive fatigue ; Denies chills or fever(s) ENT ENT ED: Denies sore throat Cardiovascular Cardiovascular: Denies chest pain Respiratory/Chest Respiratory/Chest: Reports cough, dyspnea and dyspnea on exertion Gastrointestinal Gastrointestinal: Reports abdominal pain and other Details: Patient reports that this is chronic in nature ; Denies diarrhea, nausea or vomiting Genitourinary Genitourinary ED: Denies dysuria Musculoskeletal Musculoskeletal: Denies back pain or myalgias Integumentary Denies rash Neurologic Neurologic: Denies headache(s) Psychiatric Psychiatric: Reports anxiety Hematologic/Lymphati c Hematologic/Lymphati c: Denies easy bleeding or easy bruising Allergic/Immunologic Allergic/Immunologic ED: Denies mouth swelling or tongue swelling EXAM Physical Exam Const Vital Signs: 09/02/24 00:36 09/02/24 00:54 09/02/24 01:36 Temperature 98.1 F Temperature Source Oral Pulse Rate 106 H 98 Respiratory Rate 22 H 18 Respiratory Effort Normal Blood Pressure 154/97 H 116/103 H Blood Pressure Mean 116 107 Pulse Ox 100 98 Oxygen Delivery Method Nasal Cannula Room Air Oxygen Flow Rate (L/min) 10 09/02/24 02:00 09/02/24 03:00 09/02/24 03:57 Temperature 98.3 F Temperature Source Pulse Rate 91 89 94 Respiratory Rate 18 20 H 18 Respiratory Effort Blood Pressure 101/70 110/77 95/60 Blood Pressure Mean 80 88 71 Pulse Ox 92 96 95 Oxygen Delivery Method Room Air Oxygen Flow Rate (L/min) Positive well nourished and well developed General Appearance ED: well developed; Negative for pallor HEENT HEENT Narrative: No tongue or lip swelling no oral lesions no airway edema or compromise Eyes PERRL and EOMs intact bilaterally General Eye ED: Negative for scleral icterus Neck supple and no JVD Chest Wall palpation of chest normal Chest Narrative: No bony deformity or crepitance of the chest wall noted Resp Resp Narrative: Patient has mild respiratory distress with tachypnea and mild accessory muscle use Breath sounds are diminished throughout with faint rhonchi and wheezes noted in the bilateral lower lobes slightly greater on the right Cardio regular rate and regular rhythm Rate: other Other Details: Radial and carotid pulses are equal and symmetric Extremity normal to inspection Extremity Narrative: No asymmetric edema no pitting edema negative Homans' sign bilaterally Neuro oriented x3, CN's II-XII intact bilaterally and no sensory deficits noted Sensorium / Orientation: alert Motor Exam: strength 5/5 throughout Psych Mood Affect: anxious Skin no rashes or lesions noted General Skin Exam: Negative for jaundice or pallor MDM MDM MDM Narrative Medical decision making narrative: Patient arrived (more content not included)... Normal [facility] Eosinophil percentageOrdered By: Newton Hemphill on 09-02-2024 Eosinophils/100 WBC (Bld) 2.0 % 0-5 [facility] Erythrocyte distribution wid th ratioOrdered By: Newton Hemphill on 09-02-2024 Erythrocyte distribution width (RBC) [Ratio] 13.9 % 11.6-14.6 [facility] Erythrocyte distribution wid th standard deviationOrdered By: Newton Hemphill on 09-02-2024 Erythrocyte distribution width (RBC) [Ratio] 43.2 fl 35.1-43.9 [facility] Glomerular filtration rate ( GFR) estimation/1.73 sq m using serum, plasma, or whole bOrdered By: Newton Hemphill on 09-02-2024 GFR/1.73 sq M.predicted among non-blacks MDRD (S/P/Bld) [Vol rate/Area] 101 mL/min/{1.73_m2} >60 [facility] Comment on above: mL/min/1.73m2 CKD-EP I Creatinine Equation (2020) Hematocrit Auto (Bld) [Volum e fraction]Ordered By: Newton Hemphill on 09-02-2024 Hematocrit (Bld) [Volume fraction] 47.4 % 40-54 [facility] Hemoglobin measurementOrdere d By: Newton Hemphill on 09-02-2024 Hemoglobin (Bld) [Mass/Vol] 15.8 g/dL 13.0-16.5 [facility] Immature granulocytes/100 WB C Auto (Bld)Ordered By: Newton Hemphill on 09-02-2024 Immature granulocytes/100 WBC (Bld) 0.400 % 0.0-0.9 [facility] Comment on above: IG% - Immature Granu locytes (promyelocytes, myelocytes and metamyelocytes) > 1% indicates that a LEFT SHIFT is Present. L503.7505on 09-02-2024 Natriuretic peptide B (Bld) [Mass/Vol] 99 pg/mL Normal <=900 [facility] Comment on above: Result Comment: Hear t Failure Unlikely: < 300 pg/mL Heart Failure Likely < 50 Years: > 450 pg/mL 50-75 Years: > 900 pg/mL >75 Years: > 1800 pg/mL Performed By: #### L 100.0100, L500.2500, L501.5200, L503.7505 #### [facility] [address] [place], [address] MCV (mean corpuscular volume ) determinationOrdered By: Newton Hemphill on 09-02-2024 MCV (RBC) [Entitic vol] 85.4 fL 80-94 [facility] Magnesiumon 09-02-2024 Magnesium [Mass/Vol] 2.2 mg/dL Normal 1.5-2.2 [facility] Comment on above: Performed By: #### L 100.0100, L500.2500, L501.5200, L503.7505 #### [facility] [address] [place], [place], [address] Magnesium measurement (mass/ volume)Ordered By: Newton Hemphill on 09-02-2024 Magnesium (Unsp spec) [Mass/Vol] 2.2 mg/dL 1.5-2.2 [facility] Mean corpuscular hemoglobin (MCH) determinationOrdered By: Newton Hemphill on 09-02-2024 MCH (RBC) [Entitic mass] 28.5 pg 27.0-32.0 [facility] Mean corpuscular hemoglobin concentration (MCHC) determinationOrdered By: Newton Hemphill on 09-02-2024 MCHC (RBC) [Mass/Vol] 33.3 g/dL 32-36 [facility] Mean platelet volume determi nationOrdered By: Newton Hemphill on 09-02-2024 Platelet mean volume (Bld) [Entitic vol] 9.7 fL 6.2-12.0 [facility] Monocyte percentageOrdered B y: Newton Hemphill on 09-02-2024 Monocytes/100 WBC (Bld) 8.4 % 0-10 [facility] Natriuretic peptide.B prohor anai N-Terminal [Mass/volume] in Serum or PlasmaOrdered By: Newton Hemphill on 09-02-2024 Natriuretic peptide.B prohormone N-Terminal [Mass/Vol] 99 pg/mL <900 [facility] Comment on above: Heart Failure Unlike ly: < 300 pg/mLHeart Failure Likely< 50 Years: > 450 pg/mL50-75 Years: > 900 pg/mL>75 Years: > 1800 pg/mL Neutrophil percentageOrdered By: Newton Hemphill on 09-02-2024 Neutrophils/100 WBC (Bld) 67.1 % 47-70 [facility] Nucleated red blood cell per centageOrdered By: Newton Hemphill on 09-02-2024 Nucleated RBC/100 WBC (Bld) [Ratio] 0 % 0-5 [facility] Platelet countOrdered By: Renuka Hemphill on 09-02-2024 Platelets (Bld) [#/Vol] 228 10*3/uL 150-450 [facility] Potassium measurement (mass/ volume)Ordered By: Newton Hemphill on 09-02-2024 Potassium (Unsp spec) [Mass/Vol] 4.0 mmol/L 3.3-5.1 [facility] RBC Auto (Bld) [#/Vol]Ordere d By: Newton Hemphill on 09-02-2024 RBC (Bld) [#/Vol] 5.55 10*6/uL 4.6-6.2 [facility] Serum creatinine measurement (mass/volume)Ordered By: Newton Hemphill on 09-02-2024 Creatinine [Mass/Vol] 0.72 mg/dL 0.70-1.20 [facility] Serum glucose measurement (m ass/volume)Ordered By: Newton Hemphill on 09-02-2024 Glucose [Mass/Vol] 126 mg/dL High 70-99 [facility] Serum or plasma calcium sujey urement (mass/volume)Ordered By: Newton Hemphill on 09-02-2024 Calcium [Mass/Vol] 9.6 mg/dL 7.6-11.0 [facility] Serum or plasma urea nitroge n measurement (mass/volume)Ordered By: Newton Hemphill on 09-02-2024 Urea nitrogen [Mass/Vol] 15 mg/dL 4-19 [facility] Sodium levelOrdered By: Srinath Hemphill on 09-02-2024 Sodium [Moles/Vol] 138 mmol/L 133-145 [facility] White blood cell (WBC) count Ordered By: Newton Hemphill on 09-02-2024 WBC (Bld) [#/Vol] 11.0 10*3/uL 4.4-11.0 [facility] MYCOon 01-05-2023 Mycoplasma IgG Positive Normal [facility] ([place] Comment on above: Result Comment: INTE RPRETATION OF MYCOPLASMA IgG BY EIA: Negative: No detectable M. pneumoniae IgG antibody. Positive: Mycoplasma pneumoniae IgG antibody Detected. Equivocal: Equivocal for IgG antibodies to Mycoplasma pneumoniae. Suggest repeat testing in 10-14 days. Performed By: #### M DW, GFR, BMP, ADIFF, ANEU, CBC, TROPHS #### Keisha [address] [address] .Auto Diffon 01-04-2023 Basophil, Absolute 0.0 10 3/mcL Normal 0.0-0.2 [facility] ([place]) Comment on above: Performed By: #### F MONI DENTON9 #### [id number] [place], [place] [address] Basophils/100 WBC (Bld) 0.5 % Normal 0.0-2.5 [facility] ([place]) Comment on above: Performed By: #### F MONI DENTON9 #### [address] [address] Eosinophil, Absolute 0.1 10 3/mcL Normal 0.0-0.4 [facility] ([place]) Comment on above: Performed By: #### Vinita DENTON COVD19 #### [address] [address] Eosinophils/100 WBC (Bld) 0.6 % Normal 0.0-7.0 [facility] ([place] Comment on above: Performed By: #### Vinita DENTON COVD19 #### [address] [address] Lymphocyte, Absolute 1.3 10 3/mcL Normal 0.8-3.9 [facility] ([place]) Comment on above: Performed By: #### Vinita DENTON COVD19 #### [address] [address] Lymphocytes/100 WBC (Bld) 15.3 % Normal 10.0-50.0 [facility] ([place] Comment on above: Performed By: #### Vinita DENTON COVLilli9 #### [address] [address] Monocyte, Absolute 1.0 10 3/mcL Normal 0.2-1.0 [facility] ([place]) Comment on above: Performed By: #### Vinita DENTON COVD19 #### [address] [address] Monocytes/100 WBC (Bld) 11.7 % Normal 1.7-13.0 Count includes the [facility] ([place]) Comment on above: Performed By: #### F CORRIE COVD19 #### [address] [address] Neutrophils/100 WBC (Bld) 71.9 % Normal 37.0-80.0 [facility] ([place] Comment on above: Performed By: #### F CORRIE COVD19 #### [address] [address] .GFRon 01-04-2023 GFR 145 ml/min/1.73sqm Normal [facility] ([place] Comment on above: Result Comment: GFR Population mean for , Non- Americans Ages 20-29 = 116 mL/min/1.73 sq.m. Ages 30-39 = 107 mL/min/1.73 sq.m. Ages 40-49 = 99 mL/min/1.73 sq.m. Ages 50-59 = 93 mL/min/1.73 sq.m. Ages 60-69 = 85 mL/min/1.73 sq.m. Ages 70+ = 75 mL/min/1.73 sq.m. Chronic Kidney Disease: Less than 60 mL/min/1.73 square meters End Stage Renal Disease: Less than 15 mL/min/1.73 square meters Performed By: #### F MONI DENTON9 #### [address] [address] GFR Non- 119 ml/min/1.73sqm Normal [facility] ([place] Comment on above: Result Comment: GFR Population mean for , Non- Americans Ages 20-29 = 116 mL/min/1.73 sq.m. Ages 30-39 = 107 mL/min/1.73 sq.m. Ages 40-49 = 99 mL/min/1.73 sq.m. Ages 50-59 = 93 mL/min/1.73 sq.m. Ages 60-69 = 85 mL/min/1.73 sq.m. Ages 70+ = 75 mL/min/1.73 sq.m. Chronic Kidney Disease: Less than 60 mL/min/1.73 square meters End Stage Renal Disease: Less than 15 mL/min/1.73 square meters Performed By: #### F MONI DENTON9 #### [address] [address] .NEUABSon 01-04-2023 Neutrophil, Absolute 6.2 10 3/mcL Normal 2.9-6.2 [facility] ([place] Comment on above: Performed By: #### MONI DARLING9 #### [address] [address] BMPon 01-04-2023 BUN/Creatinine Ratio 15 ratio Normal 7-27 [facility] ([place]) Comment on above: Performed By: #### MONI DARLING9 #### [address] [address] Calcium [Mass/Vol] 8.0 mg/dL Low 8.4-10.2 [facility] ([place]) Comment on above: Performed By: #### MONI DARLING9 #### [address] [address] Chloride [Moles/Vol] 102 mmol/L Normal 98-107 [facility] ([place]) Comment on above: Performed By: #### MONI ADRLING9 #### [address] [address] CO2 [Moles/Vol] 26 mmol/L Normal 23-31 [facility] ([place] Comment on above: Performed By: ###MONI PETTY9 #### [address] [address] Creatinine [Mass/Vol] 0.67 mg/dL Low 0.70-1.30 [facility] ([place]) Comment on above: Performed By: #### MONI DARLING9 #### [address] [address] Electrolyte Balance 10.0 mEq/L Normal 4.0-15.0 [facility] Comment on above: Performed By: #### MONI DARLING9 #### [address] [address] Glucose [Mass/Vol] 96 mg/dL Normal 80-115 [facility] ([place] Comment on above: Performed By: #### MONI DARLING9 #### [address] [address] Potassium [Moles/Vol] 4.3 mmol/L Normal 3.5-5.1 [facility] ([place] Comment on above: Performed By: #### MONI DARLING9 #### [address] [address] Sodium [Moles/Vol] 138 mmol/L Normal 136-145 [facility] ([place] Comment on above: Performed By: #### F MONI DENTON9 #### [address] [address] Urea nitrogen [Mass/Vol] 10 mg/dL Normal 7-18 [facility] ([place] Comment on above: Performed By: #### F MONI DENTON9 #### [address] [address] CBCon 01-04-2023 Erythrocyte distribution width (RBC) [Ratio] 14.2 % Normal 11.5-14.5 [facility] ([place] Comment on above: Performed By: #### MONI DARLING9 #### [address] [address] Hematocrit (Bld) [Volume fraction] 36.8 % Low 42.0-52.0 [facility] ([place] Comment on above: Performed By: #### MONI DARLING9 #### [place] [id number] Hgb 12.4 G/dL Low 14.0-18.0 [facility] ([place] Comment on above: Performed By: #### MONI DARLING9 #### [address] [address] MCH (RBC) [Entitic mass] 28.7 pg Normal 27.0-31.2 [facility] ([place] Comment on above: Performed By: #### F MONI DENTON9 #### [address] [address] MCHC 33.6 G/dL Normal 31.8-35.4 [facility] ([place] Comment on above: Performed By: #### F CORRIE COVLilli9 #### [address] [address] MCV (RBC) [Entitic vol] 85.3 fL Normal 80.0-94.0 [facility] ([place] Comment on above: Performed By: #### MONI DARLING9 #### Keisha [address] [address] Platelet 210 10 3/mcL Normal 130-400 [facility] ([place] Comment on above: Performed By: #### MONI DARLING9 #### Keisha [address] [address] Platelet mean volume (Bld) [Entitic vol] 6.9 fL Low 7.4-10.4 [facility] ([place] Comment on above: Performed By: #### MONI DARLING9 #### Keisha [address] [address] RBC 4.32 10 6/mcL Normal 4.04-6.13 [facility] ([place] Comment on above: Performed By: #### MONI DARLING9 #### Keisha [address] [address] WBC 8.7 10 3/mcL Normal 4.6-10.8 [facility] ([place] Comment on above: Performed By: #### MONI DARLING9 #### [address] [address] LABORATORYOrdered By: SYSTEM SYSTEM on 01-04-2023 Basophil, Absolute 0.0 103/mcL Invalid Interpretation Code 0.0 - 0.2 10^3/mcL AO Workflow SS Basophils/100 WBC (Bld) 0.5 % Invalid Interpretation Code 0.0 - 2.5 % AO Workflow SS Calcium [Mass/Vol] 8.0 mg/dL Invalid Interpretation Code 8.4 - 10.2 mg/dL AO ADM SS Chloride [Moles/Vol] 102 mmol/L Invalid Interpretation Code 98 - 107 mmol/L AO ADM SS CO2 [Moles/Vol] 26 mmol/L Invalid Interpretation Code 23 - 31 mmol/L AO ADM SS Creatinine [Mass/Vol] 0.67 mg/dL Invalid Interpretation Code 0.70 - 1.30 mg/dL AO ADM SS Electrolyte Balance 10.0 mEq/L Invalid Interpretation Code 4.0 - 15.0 mEq/L AO ADM SS Eosinophil, Absolute 0.1 103/mcL Invalid Interpretation Code 0.0 - 0.4 10^3/mcL AO Workflow SS Eosinophils/100 WBC (Bld) 0.6 % Invalid Interpretation Code 0.0 - 7.0 % AO Workflow SS Erythrocyte distribution width (RBC) [Ratio] 14.2 % Invalid Interpretation Code 11.5 - 14.5 % AO Workflow SS GFR/1.73 sq M.predicted among blacks MDRD (S/P/Bld) [Vol rate/Area] 145 ml/min/1.73sqm Invalid Interpretation Code AO Chemistry S Comment on above: Interpretive Data: GFR Population mean for , Non- Americans Ages 20-29 = 116 mL/min/1.73 sq.m. Ages 30-39 = 107 mL/min/1.73 sq.m. Ages 40-49 = 99 mL/min/1.73 sq.m. Ages 50-59 = 93 mL/min/1.73 sq.m. Ages 60-69 = 85 mL/min/1.73 sq.m. Ages 70+ = 75 mL/min/1.73 sq.m. Chronic Kidney Disease: Less than 60 mL/min/1.73 square meters End Stage Renal Disease: Less than 15 mL/min/1.73 square meters GFR/1.73 sq M.predicted among non-blacks MDRD (S/P/Bld) [Vol rate/Area] 119 ml/min/1.73sqm Invalid Interpretation Code AO Chemistry S Comment on above: Interpretive Data: GFR Population mean for , Non- Americans Ages 20-29 = 116 mL/min/1.73 sq.m. Ages 30-39 = 107 mL/min/1.73 sq.m. Ages 40-49 = 99 mL/min/1.73 sq.m. Ages 50-59 = 93 mL/min/1.73 sq.m. Ages 60-69 = 85 mL/min/1.73 sq.m. Ages 70+ = 75 mL/min/1.73 sq.m. Chronic Kidney Disease: Less than 60 mL/min/1.73 square meters End Stage Renal Disease: Less than 15 mL/min/1.73 square meters Glucose [Mass/Vol] 96 mg/dL Invalid Interpretation Code 80 - 115 mg/dL AO ADM SS Hematocrit (Bld) [Volume fraction] 36.8 % Invalid Interpretation Code 42.0 - 52.0 % AO Workflow SS Hemoglobin (Bld) [Mass/Vol] 12.4 G/dL Invalid Interpretation Code 14.0 - 18.0 G/dL AO Workflow SS Lymphocyte, Absolute 1.3 103/mcL Invalid Interpretation Code 0.8 - 3.9 10^3/mcL AO Workflow SS Lymphocytes/100 WBC (Bld) 15.3 % Invalid Interpretation Code 10.0 - 50.0 % AO Workflow SS Magnesium [Mass/Vol] 1.7 mg/dL Invalid Interpretation Code 1.8 - 2.4 mg/dL AO ADM SS MCH (RBC) [Entitic mass] 28.7 pg Invalid Interpretation Code 27.0 - 31.2 pg AO Workflow SS MCHC 33.6 G/dL Invalid Interpretation Code 31.8 - 35.4 G/dL AO Workflow SS MCV (RBC) [Entitic vol] 85.3 fL Invalid Interpretation Code 80.0 - 94.0 fL AO Workflow SS Monocyte, Absolute 1.0 103/mcL Invalid Interpretation Code 0.2 - 1.0 10^3/mcL AO Workflow SS Monocytes/100 WBC (Bld) 11.7 % Invalid Interpretation Code 1.7 - 13.0 % AO Workflow SS Neutrophil, Absolute 6.2 103/mcL Invalid Interpretation Code 2.9 - 6.2 10^3/mcL AO Workflow SS Neutrophils/100 WBC (Bld) 71.9 % Invalid Interpretation Code 37.0 - 80.0 % AO Workflow SS Platelet mean volume (Bld) [Entitic vol] 6.9 fL Invalid Interpretation Code 7.4 - 10.4 fL AO Workflow SS Platelets (Bld) [#/Vol] 210 103/mcL Invalid Interpretation Code 130 - 400 10^3/mcL AO Workflow SS Potassium [Moles/Vol] 4.3 mmol/L Invalid Interpretation Code 3.5 - 5.1 mmol/L AO ADM SS RBC (Bld) [#/Vol] 4.32 106/mcL Invalid Interpretation Code 4.04 - 6.13 10^6/mcL AO Workflow SS Sodium [Moles/Vol] 138 mmol/L Invalid Interpretation Code 136 - 145 mmol/L AO ADM SS Urea nitrogen [Mass/Vol] 10 mg/dL Invalid Interpretation Code 7 - 18 mg/dL AO ADM SS Urea nitrogen/Creatinine [Mass ratio] 15 ratio Invalid Interpretation Code 7 - 27 ratio AO ADM SS WBC (Bld) [#/Vol] 8.7 103/mcL Invalid Interpretation Code 4.6 - 10.8 10^3/mcL AO Workflow SS MGon 01-04-2023 Magnesium [Mass/Vol] 1.7 mg/dL Low 1.8-2.4 [facility] ([place]) Comment on above: Performed By: #### F MONI DENTON9 #### [address] [address] .Auto Diffon 01-03-2023 Basophil, Absolute 0.1 10 3/mcL Normal 0.0-0.2 [facility] ([place]) Comment on above: Performed By: #### M DW, GFR, BMP, ADIFF, ANEU, CBC, TROPHS #### [address] [address] Basophils/100 WBC (Bld) 0.4 % Normal 0.0-2.5 [facility] ([place]) Comment on above: Performed By: #### M DW, GFR, BMP, ADIFF, ANEU, CBC, TROPHS #### [address] [address] Eosinophil, Absolute 0.0 10 3/mcL Normal 0.0-0.4 [facility] ([place]) Comment on above: Performed By: #### M DW, GFR, BMP, ADIFF, ANEU, CBC, TROPHS #### [address] [address] Eosinophils/100 WBC (Bld) 0.1 % Normal 0.0-7.0 [facility] ([place] Comment on above: Performed By: #### M DW, GFR, BMP, ADIFF, ANEU, CBC, TROPHS #### [address] [address] Lymphocyte, Absolute 1.6 10 3/mcL Normal 0.8-3.9 [facility] ([place] Comment on above: Performed By: #### M DW, GFR, BMP, ADIFF, ANEU, CBC, TROPHS #### [address] [address] Lymphocytes/100 WBC (Bld) 11.7 % Normal 10.0-50.0 [facility] ([place] Comment on above: Performed By: #### M DW, GFR, BMP, ADIFF, ANEU, CBC, TROPHS #### [address] [address] Monocyte, Absolute 1.4 10 3/mcL High 0.2-1.0 [facility] ([place]) Comment on above: Performed By: #### M DW, GFR, BMP, ADIFF, ANEU, CBC, TROPHS #### [address] [address] Monocytes/100 WBC (Bld) 10.4 % Normal 1.7-13.0 [facility] ([place] Comment on above: Performed By: #### M DW, GFR, BMP, ADIFF, ANEU, CBC, TROPHS #### [address] [address] Neutrophils/100 WBC (Bld) 77.4 % Normal 37.0-80.0 [facility] ([place] Comment on above: Performed By: #### M DW, GFR, BMP, ADIFF, ANEU, CBC, TROPHS #### [address] [address] .GFRon 01-03-2023 GFR 127 ml/min/1.73sqm Normal [facility] ([place] Comment on above: Result Comment: GFR Population mean for , Non- Americans Ages 20-29 = 116 mL/min/1.73 sq.m. Ages 30-39 = 107 mL/min/1.73 sq.m. Ages 40-49 = 99 mL/min/1.73 sq.m. Ages 50-59 = 93 mL/min/1.73 sq.m. Ages 60-69 = 85 mL/min/1.73 sq.m. Ages 70+ = 75 mL/min/1.73 sq.m. Chronic Kidney Disease: Less than 60 mL/min/1.73 square meters End Stage Renal Disease: Less than 15 mL/min/1.73 square meters Performed By: #### F MONI DENTON9 #### [address] [address] GFR Non- 105 ml/min/1.73sqm Normal [facility] ([place] Comment on above: Result Comment: GFR Population mean for , Non- Americans Ages 20-29 = 116 mL/min/1.73 sq.m. Ages 30-39 = 107 mL/min/1.73 sq.m. Ages 40-49 = 99 mL/min/1.73 sq.m. Ages 50-59 = 93 mL/min/1.73 sq.m. Ages 60-69 = 85 mL/min/1.73 sq.m. Ages 70+ = 75 mL/min/1.73 sq.m. Chronic Kidney Disease: Less than 60 mL/min/1.73 square meters End Stage Renal Disease: Less than 15 mL/min/1.73 square meters Performed By: #### MONI DARLING9 #### Keisha [address] [address] .NEUABSon 01-03-2023 Neutrophil, Absolute 10.3 10 3/mcL High 2.9-6.2 [facility] ([place]) Comment on above: Performed By: #### M DW, GFR, BMP, ADIFF, ANEU, CBC, TROPHS #### [address] [address] .Urinalysis Microscopic (AO) on 01-03-2023 UA Bacteria 1+ /hpf Abnormal [facility] ([place] Comment on above: Performed By: #### M DW, GFR, BMP, ADIFF, ANEU, CBC, TROPHS #### [address] [address] UA Mucous 2+ /hpf Normal [facility] ([place] Comment on above: Performed By: #### M DW, GFR, BMP, ADIFF, ANEU, CBC, TROPHS #### [address] [address] UA RBC None Seen Normal None Seen [facility] ([place] Comment on above: Performed By: #### M DW, GFR, BMP, ADIFF, ANEU, CBC, TROPHS #### [address] [address] UA Renal Epithelial 0-5 Abnormal [facility] Comment on above: Performed By: #### M DW, GFR, BMP, ADIFF, ANEU, CBC, TROPHS #### [address] [address] UA Squam Epithelial 0-5 Abnormal None Seen [facility] Comment on above: Performed By: #### M DW, GFR, BMP, ADIFF, ANEU, CBC, TROPHS #### [address] [address] UA WBC LOADED Abnormal None Seen [facility] ([place] Comment on above: Performed By: #### M DW, GFR, BMP, ADIFF, ANEU, CBC, TROPHS #### [place] [id number] BMPon 01-03-2023 BUN/Creatinine Ratio 19 ratio Normal 7-27 [facility] ([place]) Comment on above: Performed By: #### MONI DARLING9 #### [address] [address] Calcium [Mass/Vol] 8.0 mg/dL Low 8.4-10.2 [facility] ([place]) Comment on above: Performed By: #### MONI DARLING9 #### [address] [address] Chloride [Moles/Vol] 103 mmol/L Normal 98-107 [facility] ([place]) Comment on above: Performed By: #### MONI DARLING9 #### [address] [address] CO2 [Moles/Vol] 30 mmol/L Normal 23-31 [facility] ([place] Comment on above: Performed By: #### MONI DARLING9 #### [address] [address] Creatinine [Mass/Vol] 0.75 mg/dL Normal 0.70-1.30 [facility] ([place] Comment on above: Performed By: #### MONI DARLING9 #### [address] [address] Electrolyte Balance 7.0 mEq/L Normal 4.0-15.0 [facility] Comment on above: Performed By: #### MONI DARLING9 #### [address] [address] Glucose [Mass/Vol] 98 mg/dL Normal 80-115 [facility] ([place] Comment on above: Performed By: #### MONI DARLING9 #### [address] [address] Potassium [Moles/Vol] 4.1 mmol/L Normal 3.5-5.1 [facility] ([place] Comment on above: Performed By: #### MONI DARLING9 #### [address] [address] Sodium [Moles/Vol] 140 mmol/L Normal 136-145 [facility] ([place] Comment on above: Performed By: #### MONI DARLING9 #### [address] [address] Urea nitrogen [Mass/Vol] 14 mg/dL Normal 7-18 [facility] Comment on above: Performed By: #### MONI DARLING9 #### [address] [address] CBCon 01-03-2023 Erythrocyte distribution width (RBC) [Ratio] 14.3 % Normal 11.5-14.5 [facility] [place] Comment on above: Performed By: #### MONI DARLING9 #### [address] [address] Hematocrit (Bld) [Volume fraction] 35.6 % Low 42.0-52.0 [facility] [place] Comment on above: Performed By: #### MONI DARLING9 #### [address] [address] Hgb 12.1 G/dL Low 14.0-18.0 [facility] [place] Comment on above: Performed By: #### MONI DARLING9 #### Keisha [address] [address] MCH (RBC) [Entitic mass] 28.6 pg Normal 27.0-31.2 [facility] [place] Comment on above: Performed By: #### MONI DARLING9 #### [address] [address] MCHC 33.9 G/dL Normal 31.8-35.4 [facility] [place] Comment on above: Performed By: #### MONI DARLING9 #### [address] [address] MCV (RBC) [Entitic vol] 84.3 fL Normal 80.0-94.0 [facility] ([place]) Comment on above: Performed By: #### MONI DARLING9 #### [address] [address] Platelet 175 10 3/mcL Normal 130-400 [facility] [place] Comment on above: Performed By: #### MONI DARLING9 #### Keisha [address] [address] Platelet mean volume (Bld) [Entitic vol] 6.9 fL Low 7.4-10.4 [facility] [place] Comment on above: Performed By: #### MONI DARLING9 #### [address] [address] RBC 4.22 10 6/mcL Normal 4.04-6.13 [facility] [place] Comment on above: Performed By: #### MONI DARLING9 #### Keisha [address] [address] WBC 13.3 10 3/mcL High 4.6-10.8 [facility] [place] Comment on above: Performed By: #### F CORRIE COVLilli9 #### [place] [address] [place], [place] [address] LABORATORYOrdered By: Daija Yanez on 01-03-2023 Appearance (U) Slightly Cloudy *ABN* (01/03/23 12:41 PM) Invalid Interpretation Code Clear AO Auto Urine SS Bacteria LM.HPF (Urine sed) [#/Area] 1 /[HPF] Invalid Interpretation Code AO Auto Urine SS Bilirubin Ql (U) Negative (01/03/23 12:41 PM) Invalid Interpretation Code Negative AO Auto Urine SS Color (U) Yellow (01/03/23 12:41 PM) Invalid Interpretation Code AO Auto Urine SS Glucose Test strip (U) [Mass/Vol] Negative Invalid Interpretation Code Negative AO Auto Urine SS Hemoglobin Auto test strip (U) [Mass/Vol] Negative (01/03/23 12:41 PM) Invalid Interpretation Code Negative AO Auto Urine SS Ketones Ql (U) 15 mg/dL Invalid Interpretation Code Negative AO Auto Urine SS UA Leuk Est Negative (01/03/23 12:41 PM) Invalid Interpretation Code Negative AO Auto Urine SS UA Mucous 2+ /HPF Invalid Interpretation Code AO Auto Urine SS UA Nitrite Negative (01/03/23 12:41 PM) Invalid Interpretation Code Negative AO Auto Urine SS UA pH 6.5 (01/03/23 12:41 PM) Invalid Interpretation Code 5.0 - 8.0 AO Auto Urine SS UA Protein 30 mg/dL Invalid Interpretation Code Negative AO Auto Urine SS UA RBC None Seen /HPF Invalid Interpretation Code None Seen AO Auto Urine SS UA Renal Epithelial 0-5 /HPF Invalid Interpretation Code AO Auto Urine SS UA Spec Grav >=1.030 *ABN* (01/03/23 12:41 PM) Invalid Interpretation Code 1.015-1.025 AO Auto Urine SS UA Specimen Type Clean Catch (01/03/23 12:41 PM) Invalid Interpretation Code AO Auto Urine SS UA Squam Epithelial 0-5 /HPF Invalid Interpretation Code None Seen AO Auto Urine SS UA Urobilinogen 2.0 E.U./dL Invalid Interpretation Code 0.2-1.0 AO Auto Urine SS WBC LM.HPF (Urine sed) [#/Area] LOADED /HPF Invalid Interpretation Code None Seen AO Auto Urine SS LABORATORYOrdered By: SYSTEM SYSTEM on 01-03-2023 Basophil, Absolute 0.1 103/mcL Invalid Interpretation Code 0.0 - 0.2 10^3/mcL AO Workflow SS Basophils/100 WBC (Bld) 0.4 % Invalid Interpretation Code 0.0 - 2.5 % AO Workflow SS Calcium [Mass/Vol] 8.0 mg/dL Invalid Interpretation Code 8.4 - 10.2 mg/dL AO ADM SS Chloride [Moles/Vol] 103 mmol/L Invalid Interpretation Code 98 - 107 mmol/L AO ADM SS CO2 [Moles/Vol] 30 mmol/L Invalid Interpretation Code 23 - 31 mmol/L AO ADM SS Creatinine [Mass/Vol] 0.75 mg/dL Invalid Interpretation Code 0.70 - 1.30 mg/dL AO ADM SS Electrolyte Balance 7.0 mEq/L Invalid Interpretation Code 4.0 - 15.0 mEq/L AO ADM SS Eosinophil, Absolute 0.0 103/mcL Invalid Interpretation Code 0.0 - 0.4 10^3/mcL AO Workflow SS Eosinophils/100 WBC (Bld) 0.1 % Invalid Interpretation Code 0.0 - 7.0 % AO Workflow SS Erythrocyte distribution width (RBC) [Ratio] 14.3 % Invalid Interpretation Code 11.5 - 14.5 % AO Workflow SS GFR/1.73 sq M.predicted among blacks MDRD (S/P/Bld) [Vol rate/Area] 127 ml/min/1.73sqm Invalid Interpretation Code AO Chemistry S Comment on above: Interpretive Data: GFR Population mean for , Non- Americans Ages 20-29 = 116 mL/min/1.73 sq.m. Ages 30-39 = 107 mL/min/1.73 sq.m. Ages 40-49 = 99 mL/min/1.73 sq.m. Ages 50-59 = 93 mL/min/1.73 sq.m. Ages 60-69 = 85 mL/min/1.73 sq.m. Ages 70+ = 75 mL/min/1.73 sq.m. Chronic Kidney Disease: Less than 60 mL/min/1.73 square meters End Stage Renal Disease: Less than 15 mL/min/1.73 square meters GFR/1.73 sq M.predicted among non-blacks MDRD (S/P/Bld) [Vol rate/Area] 105 ml/min/1.73sqm Invalid Interpretation Code AO Chemistry S Comment on above: Interpretive Data: GFR Population mean for , Non- Americans Ages 20-29 = 116 mL/min/1.73 sq.m. Ages 30-39 = 107 mL/min/1.73 sq.m. Ages 40-49 = 99 mL/min/1.73 sq.m. Ages 50-59 = 93 mL/min/1.73 sq.m. Ages 60-69 = 85 mL/min/1.73 sq.m. Ages 70+ = 75 mL/min/1.73 sq.m. Chronic Kidney Disease: Less than 60 mL/min/1.73 square meters End Stage Renal Disease: Less than 15 mL/min/1.73 square meters Glucose [Mass/Vol] 98 mg/dL Invalid Interpretation Code 80 - 115 mg/dL AO ADM SS Hematocrit (Bld) [Volume fraction] 35.6 % Invalid Interpretation Code 42.0 - 52.0 % AO Workflow SS Hemoglobin (Bld) [Mass/Vol] 12.1 G/dL Invalid Interpretation Code 14.0 - 18.0 G/dL AO Workflow SS Lymphocyte, Absolute 1.6 103/mcL Invalid Interpretation Code 0.8 - 3.9 10^3/mcL AO Workflow SS Lymphocytes/100 WBC (Bld) 11.7 % Invalid Interpretation Code 10.0 - 50.0 % AO Workflow SS Magnesium [Mass/Vol] 1.9 mg/dL Invalid Interpretation Code 1.8 - 2.4 mg/dL AO ADM SS MCH (RBC) [Entitic mass] 28.6 pg Invalid Interpretation Code 27.0 - 31.2 pg AO Workflow SS MCHC 33.9 G/dL Invalid Interpretation Code 31.8 - 35.4 G/dL AO Workflow SS MCV (RBC) [Entitic vol] 84.3 fL Invalid Interpretation Code 80.0 - 94.0 fL AO Workflow SS Monocyte, Absolute 1.4 103/mcL Invalid Interpretation Code 0.2 - 1.0 10^3/mcL AO Workflow SS Monocytes/100 WBC (Bld) 10.4 % Invalid Interpretation Code 1.7 - 13.0 % AO Workflow SS Neutrophil, Absolute 10.3 103/mcL Invalid Interpretation Code 2.9 - 6.2 10^3/mcL AO Workflow SS Neutrophils/100 WBC (Bld) 77.4 % Invalid Interpretation Code 37.0 - 80.0 % AO Workflow SS Platelet mean volume (Bld) [Entitic vol] 6.9 fL Invalid Interpretation Code 7.4 - 10.4 fL AO Workflow SS Platelets (Bld) [#/Vol] 175 103/mcL Invalid Interpretation Code 130 - 400 10^3/mcL AO Workflow SS Potassium [Moles/Vol] 4.1 mmol/L Invalid Interpretation Code 3.5 - 5.1 mmol/L AO ADM SS RBC (Bld) [#/Vol] 4.22 106/mcL Invalid Interpretation Code 4.04 - 6.13 10^6/mcL AO Workflow SS Sodium [Moles/Vol] 140 mmol/L Invalid Interpretation Code 136 - 145 mmol/L AO ADM SS Urea nitrogen [Mass/Vol] 14 mg/dL Invalid Interpretation Code 7 - 18 mg/dL AO ADM SS Urea nitrogen/Creatinine [Mass ratio] 19 ratio Invalid Interpretation Code 7 - 27 ratio AO ADM SS WBC (Bld) [#/Vol] 13.3 103/mcL Invalid Interpretation Code 4.6 - 10.8 10^3/mcL AO Workflow SS MGon 01-03-2023 Magnesium [Mass/Vol] 1.9 mg/dL Normal 1.8-2.4 [facility] ([place]) Comment on above: Performed By: #### F CORRIE, COVD19 #### [address] [address] MYCOon 01-03-2023 Mycoplasma IgM Negative Normal [facility] [place] Comment on above: Result Comment: INTE RPRETATION OF MYCOPLASMA IgM: Negative: IgM to M. pneumoniae Absent, or at levels below the assay limit of detection. Positive: IgM to M. pneumoniae Present. Invalid: Test results are invalid due to invalid internal control. Assay was performed in duplicate. Repeat testing is suggested if clinically indicated. Performed By: #### M DW, GFR, BMP, ADIFF, ANEU, CBC, TROPHS #### [address] [address] RESCVIDon 01-03-2023 Adenovirus Not detected Normal Not Detected [facility] [place] Comment on above: Performed By: #### M DW, GFR, BMP, ADIFF, ANEU, CBC, TROPHS #### [address] [address] Bordetella Parapertussis Not detected Normal Not Detected [facility] ([place]) Comment on above: Performed By: #### M DW, GFR, BMP, ADIFF, ANEU, CBC, TROPHS #### [address] [address] Bordetella Pertussis Not detected Normal Not Detected [facility] ([place] Comment on above: Performed By: #### M DW, GFR, BMP, ADIFF, ANEU, CBC, TROPHS #### [address] [address] Chlamydophila pneumoniae Not detected Normal Not Detected [facility] ([place] Comment on above: Performed By: #### M DW, GFR, BMP, ADIFF, ANEU, CBC, TROPHS #### [place] [address] Coronavirus 229E (Not COVID-19) Not detected Normal Not Detected [facility] Comment on above: Performed By: #### M DW, GFR, BMP, ADIFF, ANEU, CBC, TROPHS #### [place] [address] Coronavirus HKU1 (Not COVID-19) Not detected Normal Not Detected [facility] [place] Comment on above: Performed By: #### M DW, GFR, BMP, ADIFF, ANEU, CBC, TROPHS #### [place] [address] Coronavirus NL63 (Not COVID-19) Not detected Normal Not Detected [facility] [place] Comment on above: Performed By: #### M DW, GFR, BMP, ADIFF, ANEU, CBC, TROPHS #### [place] [address] Coronavirus OC43 (Not COVID-19) Not detected Normal Not Detected [facility] [place] Comment on above: Performed By: #### M DW, GFR, BMP, ADIFF, ANEU, CBC, TROPHS #### [address] [address] Human Metapneumovirus Not detected Normal Not Detected [facility] [place] Comment on above: Performed By: #### M DW, GFR, BMP, ADIFF, ANEU, CBC, TROPHS #### [address] [address] Influenza A Not detected Normal Not Detected [facility] [place] Comment on above: Performed By: #### M DW, GFR, BMP, ADIFF, ANEU, CBC, TROPHS #### [address] [address] Influenza B Not detected Normal Not Detected [facility] [place] Comment on above: Performed By: #### M DW, GFR, BMP, ADIFF, ANEU, CBC, TROPHS #### [address] [address] Mycoplasma pneumoniae Not detected Normal Not Detected [facility] [place] Comment on above: Performed By: #### M DW, GFR, BMP, ADIFF, ANEU, CBC, TROPHS #### [address] [address] Parainfluenza 1 Not detected Normal Not Detected [facility] Comment on above: Performed By: #### M DW, GFR, BMP, ADIFF, ANEU, CBC, TROPHS #### [address] [address] Parainfluenza 2 Not detected Normal Not Detected [facility] Comment on above: Performed By: #### M DW, GFR, BMP, ADIFF, ANEU, CBC, TROPHS #### [address] [address] Parainfluenza 3 Not detected Normal Not Detected [facility] Comment on above: Performed By: #### M DW, GFR, BMP, ADIFF, ANEU, CBC, TROPHS #### [place] [id number] Parainfluenza 4 Not detected Normal Not Detected [facility] Comment on above: Performed By: #### M DW, GFR, BMP, ADIFF, ANEU, CBC, TROPHS #### [facility] [address] [place], [place] [address] Respiratory Syncytial Virus Not detected Normal Not Detected [facility] [place] Comment on above: Performed By: #### M DW, GFR, BMP, ADIFF, ANEU, CBC, TROPHS #### [facility] [address] [place], [place] [address] Rhinovirus/Enterovirus Not detected Normal Not Detecte d [facility] [place] Comment on above: Performed By: #### M DW, GFR, BMP, ADIFF, ANEU, CBC, TROPHS #### [address] [place] [place], [place] [address] SARS-CoV-2 (COVID-19) RNA GALEN+probe Ql (Unsp spec) Not detected Normal Not Detected [facility] ([place] Comment on above: Result Comment: This test is being used under the FDA EUA procedure. This assay has been validated in the [facility] for use with nasopharyngeal specimens in [facility]. If a non-validated specimen or test collection method was used, please interpret the results with caution, especially if the test result is negative. A positive test result for COVID-19 indicates that RNA from SARS-CoV-2 was detected, and the patient is infected with the virus and presumed to be contagious. Laboratory test results should always be considered in the context of clinical observations and epidemiological data in making a final diagnosis and patient management decisions. Patient management should follow current CDC guidelines. A negative test result for this test means that SARS-CoV-2 RNA was not present in the specimen above the limit of detection. However, a negative result does not rule out COVID-19 and should not be used as the sole basis for treatment or patient management decisions. A negative result does not exclude the possibility of COVID-19. When diagnostic testing is negative, the possibility of a false negative result should be considered in the context of a patient's recent exposures and the presence of clinical signs and symptoms consistent with COVID-19. The possibility of a false negative result should especially be considered if the patient?s recent exposures or clinical presentation indicate that COVID-19 is likely, and diagnostic tests for other causes of illness (e.g., other respiratory illness) are negative. If COVID-19 is still suspected based on exposure history together with other clinical findings, re-testing should be considered by healthcare providers in consultation with public health authorities. Performed By: #### M DW, GFR, BMP, ADIFF, ANEU, CBC, TROPHS #### [address] [address] UAon 01-03-2023 Color (U) Yellow Normal [facility] [place] Comment on above: Performed By: #### M DW, GFR, BMP, ADIFF, ANEU, CBC, TROPHS #### [place] [address] Glucose (U) [Mass/Vol] Negative Normal Negative [facility] ([place]) Comment on above: Performed By: #### M DW, GFR, BMP, ADIFF, ANEU, CBC, TROPHS #### [place] [address] Ketones Ql (U) 15 mg/dL Abnormal Negative [facility] [place] Comment on above: Performed By: #### M DW, GFR, BMP, ADIFF, ANEU, CBC, TROPHS #### [address] [address] UA Appear Slightly Cloudy Abnormal Clear [facility] ([place] Comment on above: Performed By: #### M DW, GFR, BMP, ADIFF, ANEU, CBC, TROPHS #### [address] [address] UA Blood Negative Normal Negative [facility] ([place] Comment on above: Performed By: #### M DW, GFR, BMP, ADIFF, ANEU, CBC, TROPHS #### [address] [address] UA Leuk Est Negative Normal Negative [facility] ([place] Comment on above: Performed By: #### M DW, GFR, BMP, ADIFF, ANEU, CBC, TROPHS #### [address] [address] UA Nitrite Negative Normal Negative [facility] ([place] Comment on above: Performed By: #### M DW, GFR, BMP, ADIFF, ANEU, CBC, TROPHS #### [address] [address] UA pH 6.5 Normal 5.0 - 8.0 [facility] [place] Comment on above: Performed By: #### M DW, GFR, BMP, ADIFF, ANEU, CBC, TROPHS #### [address] [address] UA Protein 30 mg/dL Normal Negative [facility] [place] Comment on above: Performed By: #### M DW, GFR, BMP, ADIFF, ANEU, CBC, TROPHS #### [address] [address] UA Spec Grav >=1.030 Abnormal 1.015-1.025 [facility] ([place] Comment on above: Performed By: #### M DW, GFR, BMP, ADIFF, ANEU, CBC, TROPHS #### [place] [address] UA Specimen Type Clean Catch Normal [facility] [place] Comment on above: Performed By: #### M DW, GFR, BMP, ADIFF, ANEU, CBC, TROPHS #### [address] [address] UA Urobilinogen 2.0 E.U./dL Abnormal 0.2-1.0 [facility] [place] Comment on above: Performed By: #### M DW, GFR, BMP, ADIFF, ANEU, CBC, TROPHS #### [address] [address] Urobilinogen (U) [Mass/Vol] Negative Normal Negative [facility] [place] Comment on above: Performed By: #### M DW, GFR, BMP, ADIFF, ANEU, CBC, TROPHS #### [address] [address] XR CHEST 2 VIEWSon 3 XR CHEST 2 VIEWS ORIGINAL EXAMINATION: TWO XRAY VIEWS OF THE CHEST01/03/2023 9:37 am XR Chest, two views COMPARISON: 01/02/2023 HISTORY: ORDERING SYSTEM PROVIDED HISTORY: Reason for Exam: Shortness of breath, FINDINGS: The lungs show no suspicious nodule, infiltrate, consolidation or mass. Heart size is normal and mediastinal contours are within normal limits for age and projection. No pneumothorax, pleural fluid, or vascular congestion is seen. The bones show no acute process. Other findings include: Lungs are hyperexpanded. There are coarsened interstitial lung markings throughout the lungs as previously which are chronic findings. IMPRESSION: No acute cardio pulmonary process. COPD. . Interpreted by: Ezequiel Burton MD Preliminary Report By: Ezequiel Burton MD Electronically signed By Ezequiel Burton MD Dictated Date: 01/03/2023 10:57:37 AM Prelim Date: 01/03/2023 10:58:13 AM Sign Date: 01/03/2023 10:58:13 AM Ordering Provider: MANPREET [facility] ([place] .Auto Diffon 01-02-2023 Basophil, Absolute 0.1 10 3/mcL Normal 0.0-0.2 [facility] ([place]) Comment on above: Performed By: #### M DW, GFR, BMP, ADIFF, ANEU, CBC, TROPHS #### [address] [address] Basophils/100 WBC (Bld) 0.4 % Normal 0.0-2.5 [facility] ([place]) Comment on above: Performed By: #### M DW, GFR, BMP, ADIFF, ANEU, CBC, TROPHS #### [address] [address] Eosinophil, Absolute 0.0 10 3/mcL Normal 0.0-0.4 [facility] ([place]) Comment on above: Performed By: #### M DW, GFR, BMP, ADIFF, ANEU, CBC, TROPHS #### [address] [address] Eosinophils/100 WBC (Bld) 0.0 % Normal 0.0-7.0 [facility] [place] Comment on above: Performed By: #### M DW, GFR, BMP, ADIFF, ANEU, CBC, TROPHS #### [address] [address] Lymphocyte, Absolute 1.1 10 3/mcL Normal 0.8-3.9 [facility] ([place] Comment on above: Performed By: #### M DW, GFR, BMP, ADIFF, ANEU, CBC, TROPHS #### [address] [address] Lymphocytes/100 WBC (Bld) 5.5 % Low 10.0-50.0 [facility] [place] Comment on above: Performed By: #### M DW, GFR, BMP, ADIFF, ANEU, CBC, TROPHS #### [address] [address] Monocyte, Absolute 2.2 10 3/mcL High 0.2-1.0 [facility] ([place]) Comment on above: Performed By: #### M DW, GFR, BMP, ADIFF, ANEU, CBC, TROPHS #### [address] [address] Monocytes/100 WBC (Bld) 10.6 % Normal 1.7-13.0 [facility] ([place] Comment on above: Performed By: #### M DW, GFR, BMP, ADIFF, ANEU, CBC, TROPHS #### [address] [address] Neutrophils/100 WBC (Bld) 83.5 % High 37.0-80.0 [facility] [place] Comment on above: Performed By: #### M DW, GFR, BMP, ADIFF, ANEU, CBC, TROPHS #### [address] [address] .GFRon 01-02-2023 GFR Non- 81 ml/min/1.73sqm Normal [facility] [place] Comment on above: Result Comment: GFR Population mean for , Non- Americans Ages 20-29 = 116 mL/min/1.73 sq.m. Ages 30-39 = 107 mL/min/1.73 sq.m. Ages 40-49 = 99 mL/min/1.73 sq.m. Ages 50-59 = 93 mL/min/1.73 sq.m. Ages 60-69 = 85 mL/min/1.73 sq.m. Ages 70+ = 75 mL/min/1.73 sq.m. Chronic Kidney Disease: Less than 60 mL/min/1.73 square meters End Stage Renal Disease: Less than 15 mL/min/1.73 square meters Performed By: #### M DW, GFR, BMP, ADIFF, ANEU, CBC, TROPHS #### [address] [address] GFR 98 ml/min/1.73sqm Normal [facility] [place] Comment on above: Result Comment: GFR Population mean for , Non- Americans Ages 20-29 = 116 mL/min/1.73 sq.m. Ages 30-39 = 107 mL/min/1.73 sq.m. Ages 40-49 = 99 mL/min/1.73 sq.m. Ages 50-59 = 93 mL/min/1.73 sq.m. Ages 60-69 = 85 mL/min/1.73 sq.m. Ages 70+ = 75 mL/min/1.73 sq.m. Chronic Kidney Disease: Less than 60 mL/min/1.73 square meters End Stage Renal Disease: Less than 15 mL/min/1.73 square meters Performed By: #### M DW, GFR, BMP, ADIFF, ANEU, CBC, TROPHS #### [address] [address] .MDWon 01-02-2023 Monocyte Distribution Width 25.04 High 0.00-20.00 [facility] ([place] Comment on above: Result Comment: For adults in ED, MDW>20.0 may be associated with a higher risk of sepsis during the first 12hrs of hospital admission Performed By: #### M DW, GFR, BMP, ADIFF, ANEU, CBC, TROPHS #### [address] [address] .NEUABSon 01-02-2023 Neutrophil, Absolute 17.4 10 3/mcL High 2.9-6.2 [facility] ([place] Comment on above: Performed By: #### M DW, GFR, BMP, ADIFF, ANEU, CBC, TROPHS #### [address] [address] .Urinalysis Microscopic (AO) on 01-02-2023 UA Bacteria Trace Abnormal [facility] ([place] Comment on above: Performed By: #### F LURSV, COVD19 #### [address] [address] UA RBC 5-10 Abnormal None Seen [facility] [place] Comment on above: Performed By: #### F JUVENALV, COVD19 #### [address] [address] UA Squam Epithelial 5-10 Abnormal None Seen [facility] Comment on above: Performed By: #### F CORRIE, COVD19 #### [address] [address] UA WBC 10-15 Abnormal None Seen [facility] [place] Comment on above: Performed By: #### F CORRIE, COVD19 #### [address] [address] BMPon 01-02-2023 BUN/Creatinine Ratio 15 ratio Normal 7-27 [facility] ([place]) Comment on above: Performed By: #### M DW, GFR, BMP, ADIFF, ANEU, CBC, TROPHS #### [address] [address] Calcium [Mass/Vol] 8.4 mg/dL Normal 8.4-10.2 [facility] ([place]) Comment on above: Performed By: #### M DW, GFR, BMP, ADIFF, ANEU, CBC, TROPHS #### [address] [address] Chloride [Moles/Vol] 97 mmol/L Low 98-107 [facility] ([place]) Comment on above: Performed By: #### M DW, GFR, BMP, ADIFF, ANEU, CBC, TROPHS #### [address] [address] CO2 [Moles/Vol] 28 mmol/L Normal 23-31 [facility] ([place] Comment on above: Performed By: #### M DW, GFR, BMP, ADIFF, ANEU, CBC, TROPHS #### [address] [address] Creatinine [Mass/Vol] 0.94 mg/dL Normal 0.70-1.30 [facility] ([place]) Comment on above: Performed By: #### M DW, GFR, BMP, ADIFF, ANEU, CBC, TROPHS #### [address] [address] Electrolyte Balance 9.0 mEq/L Normal 4.0-15.0 [facility] Comment on above: Performed By: #### M DW, GFR, BMP, ADIFF, ANEU, CBC, TROPHS #### [address] [address] Glucose [Mass/Vol] 127 mg/dL High 80-115 [facility] ([place]) Comment on above: Performed By: #### M DW, GFR, BMP, ADIFF, ANEU, CBC, TROPHS #### [address] [address] Potassium [Moles/Vol] 3.9 mmol/L Normal 3.5-5.1 [facility] ([place] Comment on above: Performed By: #### M DW, GFR, BMP, ADIFF, ANEU, CBC, TROPHS #### [address] [address] Sodium [Moles/Vol] 134 mmol/L Low 136-145 [facility] ([place] Comment on above: Performed By: #### M DW, GFR, BMP, ADIFF, ANEU, CBC, TROPHS #### [address] [address] Urea nitrogen [Mass/Vol] 14 mg/dL Normal 7-18 [facility] [place] Comment on above: Performed By: #### M DW, GFR, BMP, ADIFF, ANEU, CBC, TROPHS #### [address] [address] CBCon 01-02-2023 Erythrocyte distribution width (RBC) [Ratio] 14.2 % Normal 11.5-14.5 [facility] [place] Comment on above: Performed By: #### M DW, GFR, BMP, ADIFF, ANEU, CBC, TROPHS #### [address] [address] Hematocrit (Bld) [Volume fraction] 40.3 % Low 42.0-52.0 [facility] ([place] Comment on above: Performed By: #### M DW, GFR, BMP, ADIFF, ANEU, CBC, TROPHS #### [place] [id number] Hgb 13.7 G/dL Low 14.0-18.0 [facility] [place] Comment on above: Performed By: #### M DW, GFR, BMP, ADIFF, ANEU, CBC, TROPHS #### [address] [address] MCH (RBC) [Entitic mass] 28.7 pg Normal 27.0-31.2 [facility] [place] Comment on above: Performed By: #### M DW, GFR, BMP, ADIFF, ANEU, CBC, TROPHS #### [address] [address] MCHC 34.0 G/dL Normal 31.8-35.4 [facility] [place] Comment on above: Performed By: #### M DW, GFR, BMP, ADIFF, ANEU, CBC, TROPHS #### [address] [address] MCV (RBC) [Entitic vol] 84.4 fL Normal 80.0-94.0 [facility] ([place] Comment on above: Performed By: #### M DW, GFR, BMP, ADIFF, ANEU, CBC, TROPHS #### [address] [address] Platelet 179 10 3/mcL Normal 130-400 [facility] ([place] Comment on above: Performed By: #### M DW, GFR, BMP, ADIFF, ANEU, CBC, TROPHS #### [address] [address] Platelet mean volume (Bld) [Entitic vol] 6.4 fL Low 7.4-10.4 [facility] ([place] Comment on above: Performed By: #### M DW, GFR, BMP, ADIFF, ANEU, CBC, TROPHS #### [address] [address] RBC 4.78 10 6/mcL Normal 4.04-6.13 [facility] Comment on above: Performed By: #### M DW, GFR, BMP, ADIFF, ANEU, CBC, TROPHS #### [address] [address] WBC 20.8 10 3/mcL High 4.6-10.8 [facility] Comment on above: Performed By: #### M DW, GFR, BMP, ADIFF, ANEU, CBC, TROPHS #### [address] [address] [id number] 01-02-2023 SARS-CoV-2 (COVID-19) RNA GALEN+probe Ql (Unsp spec) Negative Normal Negative [facility] Comment on above: Performed By: #### F LURSV, [id number] #### [address] [address] SARS-CoV-2 (COVID-19) RNA GALEN+probe Ql (Unsp spec) Normal [facility] Comment on above: Result Comment: Nega tive results do not preclude SARS-CoV-2 infection and should not be used as the sole basis for patient management decisions. Negative results must be combined with clinical observations, patient history, and epidemiological information. There is a risk of false negative values resulting from improperly collected, transported, or handled specimens. There is a risk of false negative values due to the presence of sequence variants in the pathogen targets of the assay, procedural errors, amplification inhibitors in specimens, or inadequate numbers of organisms for amplification. EDUARDO SARS-CoV-2 Assay is a Real-Time reverse-transcriptase polymerase chain reaction (RT-PCR) based qualitative in vitro diagnostic test intended for the qualitative detection of nucleic acid from the SARS-CoV-2 in nasopharyngeal swab specimens collected from individuals suspected of COVID-19 by their healthcare provider. Testing is limited to laboratories certified under the Clinical Laboratory Improvement Amendments of 1988 (CLIA), 42 U.S.C. ?263a, to perform moderate and high complexity tests. COVID-19 Int Performed By: #### F CORRIE, [id number] #### [id number] [place], [place] [address] CT ABD/PELVIS W/ IV CONTRAST ONLYon 01-02-2023 CT ABD/PELVIS W/ IV CONTRAST ONLY ORIGINAL EXAMINATION: CT OF THE ABDOMEN AND PELVIS WITH CONTRAST 01/02/2023 3:06 pm TECHNIQUE: CT of the abdomen and pelvis was performed with the administration of intravenous contrast. Multiplanar reformatted images are provided for review. Automated exposure control, iterative reconstruction, and/or weight based adjustment of the mA/kV was utilized to reduce the radiation dose to as low as reasonably achievable. COMPARISON: None. HISTORY: ORDERING SYSTEM PROVIDED HISTORY: Reason for Exam: low urine output x3 days FINDINGS: Moderate to severe emphysematous changes are seen of the lungs bilaterally. Areas of bronchiectasis and mucous plugging are seen worse of the left lower lobe. There is no pleural or pericardial effusion. Moderate degenerative changes in lumbosacral spine. Small hypodense lesion measuring 5 mm in left lobe of liver, too small to characterize but statistically a simple cyst. Rest of the liver appears unremarkable. Gallbladder shows no evidence of hyperdense calculi. Bilateral adrenal glands, pancreas, spleen are unremarkable. Bilateral kidneys are normal in morphology and enhancement pattern. No hydronephrosis seen. Bilateral ureters are nondilated. Urinary bladder partially distended, unremarkable. Prostate enlarged measuring 5 x 6 x 4.7 cm. No evidence of bowel dilatation seen. The appendix is normal. No acute gastrointestinal abnormality. No intraperitoneal free air or fluid seen. Mild to moderate atherosclerotic changes in aorta and iliac vessels. No aortic aneurysm. IVC appears unremarkable. IMPRESSION: 1. Prostatomegaly. 2. No evidence of hydronephrosis. No acute gastrointestinal abnormality. I have personally reviewed the images of this examination and agree with the resident's findings and interpretation. Interpreted by: Salina Yu MD Preliminary Report By: Narayan Reyes Electronically signed By Salina Yu MD Dictated Date: 01/02/2023 3:28:17 PM Prelim Date: 01/02/2023 4:08:49 PM Sign Date: 01/02/2023 4:08:49 PM Ordering Provider: NADEEN [facility]) [place] 01-02-2023 Flu A PCR (AO) Negative Normal Negative [facility] Comment on above: Result Comment: Posi tive Results: Positive Flu A/B or RSV for by PCR. Positive test results do not rule out bacterial infection or co-infection with other pathogens. Test results should be interpreted in conjunction with other laboratory and clinical data. Negative Results: Negative for by PCR. Negative test results do not preclude influenza virus or RSV infection and should not be used as the sole basis for diagnosis, treatment, or other management decisions. There is a risk of false negative RSV results when at low concentration and in the presence of co-infection with high concentration of influenza A. Invalid Results: An Invalid result (INV) was obtained. The test was repeated with similar results. REPEAT COLLECTION AND TESTING IS RECOMMENDED. The [employer] Flu A/B & RSV Assay is a real-time polymerase chain reaction (PCR) based qualitative in vitro diagnostic test for the direct detection and differentiation of influenza A virus, influenza B virus, and respiratory syncytial virus (RSV) nucleic acid in nasopharyngeal swab (ASSISTANT PROFESSOR OF NURSING) specimens from patients with signs and symptoms of respiratory infection in conjunction with clinical and laboratory findings. The test is intended for use as an aid in the differential diagnosis of influenza A virus, influenza B virus, and RSV in humans and is not intended to detect influenza C. Performed By: #### F SUSANRSJennifer, COVD19 #### [address] [address] Flu B PCR (AO) Negative Normal Negative [facility] Comment on above: Result Comment: Posi tive Results: Positive Flu A/B or RSV for by PCR. Positive test results do not rule out bacterial infection or co-infection with other pathogens. Test results should be interpreted in conjunction with other laboratory and clinical data. Negative Results: Negative for by PCR. Negative test results do not preclude influenza virus or RSV infection and should not be used as the sole basis for diagnosis, treatment, or other management decisions. There is a risk of false negative RSV results when at low concentration and in the presence of co-infection with high concentration of influenza A. Invalid Results: An Invalid result (INV) was obtained. The test was repeated with similar results. REPEAT COLLECTION AND TESTING IS RECOMMENDED. The Eduardo Flu A/B & RSV Assay is a real-time polymerase chain reaction (PCR) based qualitative in vitro diagnostic test for the direct detection and differentiation of influenza A virus, influenza B virus, and respiratory syncytial virus (RSV) nucleic acid in nasopharyngeal swab (ASSISTANT PROFESSOR OF NURSING) specimens from patients with signs and symptoms of respiratory infection in conjunction with clinical and laboratory findings. The test is intended for use as an aid in the differential diagnosis of influenza A virus, influenza B virus, and RSV in humans and is not intended to detect influenza C. Performed By: #### F LURSV, COVD19 #### [address] [address] RSV PCR (AO) Negative Normal Negative [facility] Comment on above: Result Comment: Posi tive Results: Positive Flu A/B or RSV for by PCR. Positive test results do not rule out bacterial infection or co-infection with other pathogens. Test results should be interpreted in conjunction with other laboratory and clinical data. Negative Results: Negative for by PCR. Negative test results do not preclude influenza virus or RSV infection and should not be used as the sole basis for diagnosis, treatment, or other management decisions. There is a risk of false negative RSV results when at low concentration and in the presence of co-infection with high concentration of influenza A. Invalid Results: An Invalid result (INV) was obtained. The test was repeated with similar results. REPEAT COLLECTION AND TESTING IS RECOMMENDED. The Eduardo Flu A/B & RSV Assay is a real-time polymerase chain reaction (PCR) based qualitative in vitro diagnostic test for the direct detection and differentiation of influenza A virus, influenza B virus, and respiratory syncytial virus (RSV) nucleic acid in nasopharyngeal swab (ASSISTANT PROFESSOR OF NURSING) specimens from patients with signs and symptoms of respiratory infection in conjunction with clinical and laboratory findings. The test is intended for use as an aid in the differential diagnosis of influenza A virus, influenza B virus, and RSV in humans and is not intended to detect influenza C. Performed By: #### F LURSV, COVD19 #### [address] [place] [address] LABORATORYOrdered By: Sherry No on 01-02-2023 Adenovirus DNA GALEN+non-probe Ql (Nph) Not Detected *NA* (01/02/23 6:18 PM) Invalid Interpretation Code Not Detected AH Auto Viro/Sero SS B. parapertussis [id number] DNA GALEN+non-probe Ql (Nph) Not Detected *NA* (01/02/23 6:18 PM) Invalid Interpretation Code Not Detected AH Auto Viro/Sero SS B. pertussis toxin promoter region GALEN+non-probe Ql (Nph) Not Detected *NA* (01/02/23 6:18 PM) Invalid Interpretation Code Not Detected AH Auto Viro/Sero SS C. pneumoniae DNA GALEN+non-probe Ql (Nph) Not Detected *NA* (01/02/23 6:18 PM) Invalid Interpretation Code Not Detected AH Auto Viro/Sero SS FLUAV RNA GALEN+non-probe Ql (Nph) Not Detected *NA* (01/02/23 6:18 PM) Invalid Interpretation Code Not Detected AH Auto Viro/Sero SS FLUBV RNA GALEN+non-probe Ql (Nph) Not Detected *NA* (01/02/23 6:18 PM) Invalid Interpretation Code Not Detected AH Auto Viro/Sero SS hMPV RNA GALEN+non-probe Ql (Nph) Not Detected *NA* (01/02/23 6:18 PM) Invalid Interpretation Code Not Detected AH Auto Viro/Sero SS M. pneumoniae DNA GALEN+non-probe Ql (Nph) Not Detected *NA* (01/02/23 6:18 PM) Invalid Interpretation Code Not Detected AH Auto Viro/Sero SS M. pneumoniae IgM IA Ql (S) Negative 3 (01/02/23 6:18 PM) Invalid Interpretation Code AH Man Viro/Sero SS Comment on above: Interpretive Data: I NTERPRETATION OF MYCOPLASMA IgM: Negative: IgM to M. pneumoniae Absent, or at levels below the assay limit of detection. Positive: IgM to M. pneumoniae Present. Invalid: Test results are invalid due to invalid internal control. Assay was performed in duplicate. Repeat testing is suggested if clinically indicated. Parainfluenza virus 1 RNA GALEN+non-probe Ql (Nph) Not Detected *NA* (01/02/23 6:18 PM) Invalid Interpretation Code Not Detected AH Auto Viro/Sero SS Parainfluenza virus 2 RNA GALEN+non-probe Ql (Nph) Not Detected *NA* (01/02/23 6:18 PM) Invalid Interpretation Code Not Detected AH Auto Viro/Sero SS Parainfluenza virus 3 RNA GALEN+non-probe Ql (Nph) Not Detected *NA* (01/02/23 6:18 PM) Invalid Interpretation Code Not Detected AH Auto Viro/Sero SS Parainfluenza virus 4 RNA GALEN+non-probe Ql (Nph) Not Detected *NA* (01/02/23 6:18 PM) Invalid Interpretation Code Not Detected AH Auto Viro/Sero SS Rhinovirus+Enterovirus RNA GALEN+non-probe Ql (Nph) Not Detected *NA* (01/02/23 6:18 PM) Invalid Interpretation Code Not Detected AH Auto Viro/Sero SS RSV RNA GALEN+non-probe Ql (Nph) Not Detected *NA* (01/02/23 6:18 PM) Invalid Interpretation Code Not Detected AH Auto Viro/Sero SS SARS-CoV-2 (COVID-19) RNA GALEN+probe Ql (Resp) Not Detected 2 *NA* (01/02/23 6:18 PM) Invalid Interpretation Code Not Detected AH Auto Viro/Sero SS Comment on above: Interpretive Data: T his test is being used under the FDA EUA procedure. This assay has been validated in the [facility] for use with nasopharyngeal specimens in [facility]. If a non-validated specimen or test collection method was used, please interpret the results with caution, especially if the test result is negative. A positive test result for COVID-19 indicates that RNA from SARS-CoV-2 was detected, and the patient is infected with the virus and presumed to be contagious. Laboratory test results should always be considered in the context of clinical observations and epidemiological data in making a final diagnosis and patient management decisions. Patient management should follow current CDC guidelines. A negative test result for this test means that SARS-CoV-2 RNA was not present in the specimen above the limit of detection. However, a negative result does not rule out COVID-19 and should not be used as the sole basis for treatment or patient management decisions. A negative result does not exclude the possibility of COVID-19. When diagnostic testing is negative, the possibility of a false negative result should be considered in the context of a patient's recent exposures and the presence of clinical signs and symptoms consistent with COVID-19. The possibility of a false negative result should especially be considered if the patient s recent exposures or clinical presentation indicate that COVID-19 is likely, and diagnostic tests for other causes of illness (e.g., other respiratory illness) are negative. If COVID-19 is still suspected based on exposure history together with other clinical findings, re-testing should be considered by healthcare providers in consultation with public health authorities. LABORATORYOrdered By: SYSTEM SYSTEM on 01-02-2023 Lactate [Moles/Vol] 0.9 mmol/L Invalid Interpretation Code 0.4 - 2.0 mmol/L AO ADM SS Basophil, Absolute 0.1 103/mcL Invalid Interpretation Code 0.0 - 0.2 10^3/mcL AO Workflow SS Basophils/100 WBC (Bld) 0.4 % Invalid Interpretation Code 0.0 - 2.5 % AO Workflow SS Calcium [Mass/Vol] 8.4 mg/dL Invalid Interpretation Code 8.4 - 10.2 mg/dL AO ADM SS Chloride [Moles/Vol] 97 mmol/L Invalid Interpretation Code 98 - 107 mmol/L AO ADM SS CO2 [Moles/Vol] 28 mmol/L Invalid Interpretation Code 23 - 31 mmol/L AO ADM SS Creatinine [Mass/Vol] 0.94 mg/dL Invalid Interpretation Code 0.70 - 1.30 mg/dL AO ADM SS Electrolyte Balance 9.0 mEq/L Invalid Interpretation Code 4.0 - 15.0 mEq/L AO ADM SS Eosinophil, Absolute 0.0 103/mcL Invalid Interpretation Code 0.0 - 0.4 10^3/mcL AO Workflow SS Eosinophils/100 WBC (Bld) 0.0 % Invalid Interpretation Code 0.0 - 7.0 % AO Workflow SS Erythrocyte distribution width (RBC) [Ratio] 14.2 % Invalid Interpretation Code 11.5 - 14.5 % AO Workflow SS GFR/1.73 sq M.predicted among blacks MDRD (S/P/Bld) [Vol rate/Area] 98 ml/min/1.73sqm Invalid Interpretation Code AO Chemistry S Comment on above: Interpretive Data: GFR Population mean for , Non- Americans Ages 20-29 = 116 mL/min/1.73 sq.m. Ages 30-39 = 107 mL/min/1.73 sq.m. Ages 40-49 = 99 mL/min/1.73 sq.m. Ages 50-59 = 93 mL/min/1.73 sq.m. Ages 60-69 = 85 mL/min/1.73 sq.m. Ages 70+ = 75 mL/min/1.73 sq.m. Chronic Kidney Disease: Less than 60 mL/min/1.73 square meters End Stage Renal Disease: Less than 15 mL/min/1.73 square meters GFR/1.73 sq M.predicted among non-blacks MDRD (S/P/Bld) [Vol rate/Area] 81 ml/min/1.73sqm Invalid Interpretation Code AO Chemistry S Comment on above: Interpretive Data: GFR Population mean for , Non- Americans Ages 20-29 = 116 mL/min/1.73 sq.m. Ages 30-39 = 107 mL/min/1.73 sq.m. Ages 40-49 = 99 mL/min/1.73 sq.m. Ages 50-59 = 93 mL/min/1.73 sq.m. Ages 60-69 = 85 mL/min/1.73 sq.m. Ages 70+ = 75 mL/min/1.73 sq.m. Chronic Kidney Disease: Less than 60 mL/min/1.73 square meters End Stage Renal Disease: Less than 15 mL/min/1.73 square meters Glucose [Mass/Vol] 127 mg/dL Invalid Interpretation Code 80 - 115 mg/dL AO ADM SS Hematocrit (Bld) [Volume fraction] 40.3 % Invalid Interpretation Code 42.0 - 52.0 % AO Workflow SS Hemoglobin (Bld) [Mass/Vol] 13.7 G/dL Invalid Interpretation Code 14.0 - 18.0 G/dL AO Workflow SS Lymphocyte, Absolute 1.1 103/mcL Invalid Interpretation Code 0.8 - 3.9 10^3/mcL AO Workflow SS Lymphocytes/100 WBC (Bld) 5.5 % Invalid Interpretation Code 10.0 - 50.0 % AO Workflow SS MCH (RBC) [Entitic mass] 28.7 pg Invalid Interpretation Code 27.0 - 31.2 pg AO Workflow SS MCHC 34.0 G/dL Invalid Interpretation Code 31.8 - 35.4 G/dL AO Workflow SS MCV (RBC) [Entitic vol] 84.4 fL Invalid Interpretation Code 80.0 - 94.0 fL AO Workflow SS Monocyte distribution width Auto (Bld) [Entitic vol] 25.04 1 Invalid Interpretation Code 0.00 - 20.00 AO Workflow SS Comment on above: Result Comment: For adults in ED, MDW>20.0 may be associated with a higher risk of sepsis during the first 12hrs of hospital admission Monocyte, Absolute 2.2 103/mcL Invalid Interpretation Code 0.2 - 1.0 10^3/mcL AO Workflow SS Monocytes/100 WBC (Bld) 10.6 % Invalid Interpretation Code 1.7 - 13.0 % AO Workflow SS Neutrophil, Absolute 17.4 103/mcL Invalid Interpretation Code 2.9 - 6.2 10^3/mcL AO Workflow SS Neutrophils/100 WBC (Bld) 83.5 % Invalid Interpretation Code 37.0 - 80.0 % AO Workflow SS Platelet mean volume (Bld) [Entitic vol] 6.4 fL Invalid Interpretation Code 7.4 - 10.4 fL AO Workflow SS Platelets (Bld) [#/Vol] 179 103/mcL Invalid Interpretation Code 130 - 400 10^3/mcL AO Workflow SS Potassium [Moles/Vol] 3.9 mmol/L Invalid Interpretation Code 3.5 - 5.1 mmol/L AO ADM SS RBC (Bld) [#/Vol] 4.78 106/mcL Invalid Interpretation Code 4.04 - 6.13 10^6/mcL AO Workflow SS Sodium [Moles/Vol] 134 mmol/L Invalid Interpretation Code 136 - 145 mmol/L AO ADM SS Troponin I.cardiac DL <= 0.01 ng/mL [Mass/Vol] 6.3 ng/L Invalid Interpretation Code 0.0 - 76.2 ng/L AO ADM SS Urea nitrogen [Mass/Vol] 14 mg/dL Invalid Interpretation Code 7 - 18 mg/dL AO ADM SS Urea nitrogen/Creatinine [Mass ratio] 15 ratio Invalid Interpretation Code 7 - 27 ratio AO ADM SS WBC (Bld) [#/Vol] 20.8 103/mcL Invalid Interpretation Code 4.6 - 10.8 10^3/mcL AO Workflow SS LABORATORYOrdered By: Sherry Landon on 01-02-2023 Appearance (U) Clear (01/02/23 1:35 PM) Invalid Interpretation Code Clear AO Auto Urine SS Bacteria LM.HPF (Urine sed) [#/Area] Trace /HPF Invalid Interpretation Code AO Auto Urine SS Bilirubin Ql (U) Negative (01/02/23 1:35 PM) Invalid Interpretation Code Negative AO Auto Urine SS Color (U) Yellow (01/02/23 1:35 PM) Invalid Interpretation Code AO Auto Urine SS Glucose Test strip (U) [Mass/Vol] Negative Invalid Interpretation Code Negative AO Auto Urine SS Hemoglobin Auto test strip (U) [Mass/Vol] Trace *ABN* (01/02/23 1:35 PM) Invalid Interpretation Code Negative AO Auto Urine SS Ketones Ql (U) Negative Invalid Interpretation Code Negative AO Auto Urine SS UA Leuk Est Negative (01/02/23 1:35 PM) Invalid Interpretation Code Negative AO Auto Urine SS UA Nitrite Positive *ABN* (01/02/23 1:35 PM) Invalid Interpretation Code Negative AO Auto Urine SS UA pH 5.0 (01/02/23 1:35 PM) Invalid Interpretation Code 5.0 - 8.0 AO Auto Urine SS UA Protein 100 mg/dL Invalid Interpretation Code Negative AO Auto Urine SS UA RBC 5-10 /HPF Invalid Interpretation Code None Seen AO Auto Urine SS UA Spec Grav 1.015 (01/02/23 1:35 PM) Invalid Interpretation Code 1.015-1.025 AO Auto Urine SS UA Specimen Type Clean Catch (01/02/23 1:35 PM) Invalid Interpretation Code AO Auto Urine SS UA Squam Epithelial 5-10 /HPF Invalid Interpretation Code None Seen AO Auto Urine SS UA Urobilinogen 0.2 E.U./dL Invalid Interpretation Code 0.2-1.0 AO Auto Urine SS WBC LM.HPF (Urine sed) [#/Area] 10-15 /HPF Invalid Interpretation Code None Seen AO Auto Urine SS LABORATORYOrdered By: Lai Wilks on 01-02-2023 FLUAV RNA GALEN+probe Ql (Upper resp) Negative 10 (01/02/23 1:35 PM) Invalid Interpretation Code Negative AO Auto Urine SS Comment on above: Interpretive Data: P ositive Results: Positive Flu A/B or RSV for by PCR. Positive test results do not rule out bacterial infection or co-infection with other pathogens. Test results should be interpreted in conjunction with other laboratory and clinical data. Negative Results: Negative for by PCR. Negative test results do not preclude influenza virus or RSV infection and should not be used as the sole basis for diagnosis, treatment, or other management decisions. There is a risk of false negative RSV results when at low concentration and in the presence of co-infection with high concentration of influenza A. Invalid Results: An Invalid result (INV) was obtained. The test was repeated with similar results. REPEAT COLLECTION AND TESTING IS RECOMMENDED. The [employer] Flu A/B & RSV Assay is a real-time polymerase chain reaction (PCR) based qualitative in vitro diagnostic test for the direct detection and differentiation of influenza A virus, influenza B virus, and respiratory syncytial virus (RSV) nucleic acid in nasopharyngeal swab (ASSISTANT PROFESSOR OF NURSING) specimens from patients with signs and symptoms of respiratory infection in conjunction with clinical and laboratory findings. The test is intended for use as an aid in the differential diagnosis of influenza A virus, influenza B virus, and RSV in humans and is not intended to detect influenza C. FLUBV RNA GALEN+probe Ql (Upper resp) Negative 11 (01/02/23 1:35 PM) Invalid Interpretation Code Negative AO Auto Urine SS Comment on above: Interpretive Data: P ositive Results: Positive Flu A/B or RSV for by PCR. Positive test results do not rule out bacterial infection or co-infection with other pathogens. Test results should be interpreted in conjunction with other laboratory and clinical data. Negative Results: Negative for by PCR. Negative test results do not preclude influenza virus or RSV infection and should not be used as the sole basis for diagnosis, treatment, or other management decisions. There is a risk of false negative RSV results when at low concentration and in the presence of co-infection with high concentration of influenza A. Invalid Results: An Invalid result (INV) was obtained. The test was repeated with similar results. REPEAT COLLECTION AND TESTING IS RECOMMENDED. The Eduardo Flu A/B & RSV Assay is a real-time polymerase chain reaction (PCR) based qualitative in vitro diagnostic test for the direct detection and differentiation of influenza A virus, influenza B virus, and respiratory syncytial virus (RSV) nucleic acid in nasopharyngeal swab (ASSISTANT PROFESSOR OF NURSING) specimens from patients with signs and symptoms of respiratory infection in conjunction with clinical and laboratory findings. The test is intended for use as an aid in the differential diagnosis of influenza A virus, influenza B virus, and RSV in humans and is not intended to detect influenza C. RSV RNA GALEN+probe Ql (Upper resp) Negative 12 (01/02/23 1:35 PM) Invalid Interpretation Code Negative AO Auto Urine SS Comment on above: Interpretive Data: P ositive Results: Positive Flu A/B or RSV for by PCR. Positive test results do not rule out bacterial infection or co-infection with other pathogens. Test results should be interpreted in conjunction with other laboratory and clinical data. Negative Results: Negative for by PCR. Negative test results do not preclude influenza virus or RSV infection and should not be used as the sole basis for diagnosis, treatment, or other management decisions. There is a risk of false negative RSV results when at low concentration and in the presence of co-infection with high concentration of influenza A. Invalid Results: An Invalid result (INV) was obtained. The test was repeated with similar results. REPEAT COLLECTION AND TESTING IS RECOMMENDED. The [employer] Flu A/B & RSV Assay is a real-time polymerase chain reaction (PCR) based qualitative in vitro diagnostic test for the direct detection and differentiation of influenza A virus, influenza B virus, and respiratory syncytial virus (RSV) nucleic acid in nasopharyngeal swab (ASSISTANT PROFESSOR OF NURSING) specimens from patients with signs and symptoms of respiratory infection in conjunction with clinical and laboratory findings. The test is intended for use as an aid in the differential diagnosis of influenza A virus, influenza B virus, and RSV in humans and is not intended to detect influenza C. SARS-CoV-2 (COVID-19) RNA GALEN+probe Ql (Resp) Negative results do not preclude SARS-CoV-2 infection and should not be used as the sole basis for patient management decisions. Negative results must be combined with clinical observations, patient history, and epidemiological information.There is a risk of false negative values resulting from improperly collected, transported, or handled specimens.There is a risk of false negative values due to the presence of sequence variants in the pathogen targets of the assay, procedural errors, amplification inhibitors in specimens, or inadequate numbers of organisms for amplification.EDUARDO SARS-CoV-2 Assay is a Real-Time reverse-transcriptas e polymerase chain reaction (RT-PCR) based qualitative in vitro diagnostic test intended for the qualitative detection of nucleic acid from the SARS-CoV-2 in nasopharyngeal swab specimens collected from individuals suspected of COVID-19 by their healthcare provider. Testing is limited to laboratories certified under the Clinical Laboratory Improvement Amendments of 1988 (CLIA), 42 U.S.C. 263a, to perform moderate and high complexity tests. Invalid Interpretation Code AO Auto Urine SS LACon 01-02-2023 Lactic Acid Lvl 0.9 mmol/L Normal 0.4-2.0 [facility] [place] Comment on above: Performed By: #### M DW, GFR, BMP, ADIFF, ANEU, CBC, TROPHS #### [address] [address] No Panel Informationon 01-02 Legionella Urine Ag Presumptive negative for L. pneumophila serogroup 1 antigen in urine, suggesting no recent or current infection. Legionnaire's disease cannot be ruled out since other serogroups and species may also cause disease. [facility] Microscopic examination of blood, culture Culture has been received in lab and is no growth to date. Routine cultures are held for 5 days. [facility] Culture Urine <10,000 cfu/ml. No Significant growth. Sensitivity not indicated. [facility] TROPHSon 01-02-2023 Troponin I High Sensitivity 6.3 ng/L Normal 0.0-76.2 [facility] [place] Comment on above: Performed By: #### M DW, GFR, BMP, ADIFF, ANEU, CBC, TROPHS #### [address] [address] UAon 01-02-2023 Color (U) Yellow Normal [facility] [place] Comment on above: Performed By: #### F LURSV, COVD19 #### [address] [address] Glucose (U) [Mass/Vol] Negative Normal Negative [facility] ([place]) Comment on above: Performed By: #### F LURSV, COVD19 #### [address] [address] Ketones Ql (U) Negative Normal Negative [facility] [place] Comment on above: Performed By: #### F LURSV, COVD19 #### Keisha [address] [address] UA Appear Clear Normal Clear [facility] [place] Comment on above: Performed By: #### Vinita DENTON COVD19 #### Keisha [address] [address] UA Blood Trace Abnormal Negative [facility] [place] Comment on above: Performed By: #### Vinita DENTON COVD19 #### Keisha [address] [address] UA Leuk Est Negative Normal Negative [facility] [place] Comment on above: Performed By: #### Vinita DENTON COVD19 #### Keisha [address] [address] UA Nitrite Positive Abnormal Negative [facility] [place] Comment on above: Performed By: #### Vinita DENTON COVD19 #### [place] [id number] UA pH 5.0 Normal 5.0 - 8.0 [facility] [place] Comment on above: Performed By: #### Vinita DENTON COVD19 #### [address] [address] UA Protein 100 mg/dL Abnormal Negative [facility] [place] Comment on above: Performed By: #### Vinita DENTON COVD19 #### Keisha [address] [address] UA Spec Grav 1.015 Normal 1.015-1.025 [facility] [place] Comment on above: Performed By: #### F CORRIE COVD19 #### Keisha [address] [address] UA Specimen Type Clean Catch Normal [facility] [place] Comment on above: Performed By: #### F CORRIE COVD19 #### Keisha [address] [address] UA Urobilinogen 0.2 E.U./dL Normal 0.2-1.0 [facility] [place] Comment on above: Performed By: #### F CORRIE COVD19 #### [address] [address] Urobilinogen (U) [Mass/Vol] Negative Normal Negative [facility] [place] Comment on above: Performed By: #### F CORRIE COVD19 #### [address] [address] XR CHEST 1 VIEWon 01-02-2023 XR CHEST 1 VIEW ORIGINAL EXAMINATION: ONE XRAY VIEW OF THE CHEST01/02/2023 3:05 pm XR Chest, portable upright COMPARISON: 02/11/2022 HISTORY: ORDERING SYSTEM PROVIDED HISTORY: Reason for Exam: Cough, SOB, hx of COPD; fever, FINDINGS: The lungs show no suspicious nodule, infiltrate, consolidation or mass. Heart size is normal and mediastinal contours are within normal limits for age and projection. No pneumothorax, pleural fluid, or vascular congestion is seen. The bones show no acute process. Other findings include: Lungs are hyperexpanded. Coarse interstitial lung markings bilaterally are chronic findings. IMPRESSION: No acute cardio pulmonary process. COPD. . Interpreted by: Ezequiel Burton MD Preliminary Report By: Ezequiel Burton MD Electronically signed By Ezequiel Burton MD Dictated Date: 01/02/2023 3:42:04 PM Prelim Date: 01/02/2023 3:42:39 PM Sign Date: 01/02/2023 3:42:39 PM Ordering Provider: NADEEN [facility] ([place]) .Auto Diffon 07-19-2022 Basophil, Absolute 0.0 10 3/mcL Normal 0.0-0.3 [facility] ([place]) Comment on above: Performed By: #### M DW, GFR, BMP, ADIFF, ANEU, CBC, TROPHS #### [address] [address] Basophils/100 WBC (Bld) 0.6 % Normal 0.0-2.5 [facility] ([place]) Comment on above: Performed By: #### M DW, GFR, BMP, ADIFF, ANEU, CBC, TROPHS #### [address] [address] Eosinophil, Absolute 0.1 10 3/mcL Normal 0.0-0.7 [facility] ([place]) Comment on above: Performed By: #### M DW, GFR, BMP, ADIFF, ANEU, CBC, TROPHS #### [address] [address] Eosinophils/100 WBC (Bld) 1.3 % Normal 0.0-6.0 [facility] [place] Comment on above: Performed By: #### M DW, GFR, BMP, ADIFF, ANEU, CBC, TROPHS #### [address] [address] Lymphocyte, Absolute 1.8 10 3/mcL Normal 0.9-4.3 [facility] ([place]) Comment on above: Performed By: #### M DW, GFR, BMP, ADIFF, ANEU, CBC, TROPHS #### [address] [address] Lymphocytes/100 WBC (Bld) 22.7 % Normal 20.0-40.0 [facility] [place] Comment on above: Performed By: #### M DW, GFR, BMP, ADIFF, ANEU, CBC, TROPHS #### [address] [address] Monocyte, Absolute 0.6 10 3/mcL Normal 0.1-1.4 [facility] ([place]) Comment on above: Performed By: #### M DW, GFR, BMP, ADIFF, ANEU, CBC, TROPHS #### [address] [address] Monocytes/100 WBC (Bld) 7.7 % Normal 2.0-13.0 Count includes the [facility] ([place]) Comment on above: Performed By: #### M DW, GFR, BMP, ADIFF, ANEU, CBC, TROPHS #### [address] [address] Neutrophils/100 WBC (Bld) 67.7 % Normal 50.0-75.0 [facility] [place] Comment on above: Performed By: #### M DW, GFR, BMP, ADIFF, ANEU, CBC, TROPHS #### [address] [address] .GFRon 07-19-2022 GFR >60 Normal [facility] ([place]) Comment on above: Result Comment: GFR Population mean for , Non- Americans Ages 20-29 = 116 mL/min/1.73 sq.m. Ages 30-39 = 107 mL/min/1.73 sq.m. Ages 40-49 = 99 mL/min/1.73 sq.m. Ages 50-59 = 93 mL/min/1.73 sq.m. Ages 60-69 = 85 mL/min/1.73 sq.m. Ages 70+ = 75 mL/min/1.73 sq.m. Chronic Kidney Disease: Less than 60 mL/min/1.73 square meters End Stage Renal Disease: Less than 15 mL/min/1.73 square meters Performed By: #### M DW, GFR, BMP, ADIFF, ANEU, CBC, TROPHS #### [address] [address] GFR Non- >60 Normal [facility] ([place] Comment on above: Result Comment: GFR Population mean for , Non- Americans Ages 20-29 = 116 mL/min/1.73 sq.m. Ages 30-39 = 107 mL/min/1.73 sq.m. Ages 40-49 = 99 mL/min/1.73 sq.m. Ages 50-59 = 93 mL/min/1.73 sq.m. Ages 60-69 = 85 mL/min/1.73 sq.m. Ages 70+ = 75 mL/min/1.73 sq.m. Chronic Kidney Disease: Less than 60 mL/min/1.73 square meters End Stage Renal Disease: Less than 15 mL/min/1.73 square meters Performed By: #### M DW, GFR, BMP, ADIFF, ANEU, CBC, TROPHS #### [address] [address] .NEUABSon 07-19-2022 Neutrophil, Absolute 5.5 10 3/mcL Normal 2.3-8.1 [facility] ([place]) Comment on above: Performed By: #### M DW, GFR, BMP, ADIFF, ANEU, CBC, TROPHS #### [address] [address] BMPon 07-19-2022 BUN/Creatinine Ratio 28.9 ratio High 10.0-22.0 [facility] ([place]) Comment on above: Performed By: #### M DW, GFR, BMP, ADIFF, ANEU, CBC, TROPHS #### [address] [address] Calcium [Mass/Vol] 9.4 mg/dL Normal 8.7-10.4 [facility] ([place]) Comment on above: Performed By: #### M DW, GFR, BMP, ADIFF, ANEU, CBC, TROPHS #### [address] [address] Chloride [Moles/Vol] 109 mmol/L Normal 98-110 [facility] ([place]) Comment on above: Performed By: #### M DW, GFR, BMP, ADIFF, ANEU, CBC, TROPHS #### [address] [address] CO2 [Moles/Vol] 28 mmol/L Normal 22-32 [facility] [place] Comment on above: Performed By: #### M DW, GFR, BMP, ADIFF, ANEU, CBC, TROPHS #### [address] [address] Creatinine [Mass/Vol] 0.76 mg/dL Normal 0.60-1.40 [facility] ([place]) Comment on above: Performed By: #### M DW, GFR, BMP, ADIFF, ANEU, CBC, TROPHS #### [address] [address] Electrolyte Balance 2.0 mEq/L Low 4.0-15.0 [facility] Comment on above: Performed By: #### M DW, GFR, BMP, ADIFF, ANEU, CBC, TROPHS #### [address] [address] Glucose [Mass/Vol] 100 mg/dL Normal 82-115 [facility] ([place]) Comment on above: Performed By: #### M DW, GFR, BMP, ADIFF, ANEU, CBC, TROPHS #### [address] [address] Potassium [Moles/Vol] 4.3 mmol/L Normal 3.5-5.0 [facility] ([place] Comment on above: Performed By: #### M DW, GFR, BMP, ADIFF, ANEU, CBC, TROPHS #### [address] [address] Sodium [Moles/Vol] 139 mmol/L Normal 136-145 [facility] ([place]) Comment on above: Performed By: #### M DW, GFR, BMP, ADIFF, ANEU, CBC, TROPHS #### [address] [address] Urea nitrogen [Mass/Vol] 22.0 mg/dL Normal 8.0-22.0 [facility] [place] Comment on above: Performed By: #### M DW, GFR, BMP, ADIFF, ANEU, CBC, TROPHS #### [address] [address] CBCon 07-19-2022 Erythrocyte distribution width (RBC) [Ratio] 15.7 % High 11.5-15.5 [facility] [place] Comment on above: Performed By: #### M DW, GFR, BMP, ADIFF, ANEU, CBC, TROPHS #### [address] [address] Hematocrit (Bld) [Volume fraction] 45.8 % Normal 40.0-52.0 [facility] [place] Comment on above: Performed By: #### M DW, GFR, BMP, ADIFF, ANEU, CBC, TROPHS #### [address] [address] Hgb 15.0 G/dL Normal 13.0-17.5 [facility] [place] Comment on above: Performed By: #### M DW, GFR, BMP, ADIFF, ANEU, CBC, TROPHS #### [address] [address] MCH (RBC) [Entitic mass] 28.5 pg Normal 27.0-33.0 [facility] [place] Comment on above: Performed By: #### M DW, GFR, BMP, ADIFF, ANEU, CBC, TROPHS #### [address] [address] MCHC 32.7 G/dL Normal 32.0-36.0 [facility] [place] Comment on above: Performed By: #### M DW, GFR, BMP, ADIFF, ANEU, CBC, TROPHS #### [address] [address] MCV (RBC) [Entitic vol] 87.3 fL Normal 81.0-100.0 [facility] ([place]) Comment on above: Performed By: #### M DW, GFR, BMP, ADIFF, ANEU, CBC, TROPHS #### [address] [address] Platelet 232 10 3/mcL Normal 150-450 [facility] [place] Comment on above: Performed By: #### M DW, GFR, BMP, ADIFF, ANEU, CBC, TROPHS #### [address] [address] Platelet mean volume (Bld) [Entitic vol] 8.1 fL Normal 6.4-10.5 [facility] [place] Comment on above: Performed By: #### M DW, GFR, BMP, ADIFF, ANEU, CBC, TROPHS #### [address] [address] RBC 5.25 10 6/mcL Normal 4.50-6.00 [facility] [place] Comment on above: Performed By: #### M DW, GFR, BMP, ADIFF, ANEU, CBC, TROPHS #### [address] [address] WBC 8.0 10 3/mcL Normal 4.5-10.8 [facility] [place] Comment on above: Performed By: #### M DW, GFR, BMP, ADIFF, ANEU, CBC, TROPHS #### [address] [address] HCVon 07-19-2022 Hep C Ab Non-Reactive Normal Non-Reactive [facility]) Comment on above: Performed By: #### M DW, GFR, BMP, ADIFF, ANEU, CBC, TROPHS #### [address] [address] Hep C Ab Int Normal [facility]) Comment on above: Result Comment: Nonr eactive: Samples with a value < 0.80 are considered nonreactive (negative) for antibodies to HCV. A negative test result does not exclude the possibility of exposure to or infection with HCV. HCV antibodies may be undetectable in some stages of the infection and in some clinical conditions. See Interp Performed By: #### M DW, GFR, BMP, ADIFF, ANEU, CBC, TROPHS #### [address] [address] LIPIDon 07-19-2022 Cholesterol [Mass/Vol] 167 mg/dL Normal 50-199 [facility]) Comment on above: Result Comment: Chol esterol Reference Interval: Less than 200 Desirable 200-239 Borderline high risk 240 and above High risk Performed By: #### M DW, GFR, BMP, ADIFF, ANEU, CBC, TROPHS #### [address] [address] Cholesterol in HDL [Mass/Vol] 54 mg/dL Normal 40-59 [facility]) Comment on above: Performed By: #### M DW, GFR, BMP, ADIFF, ANEU, CBC, TROPHS #### [address] [address] Cholesterol in LDL [Mass/Vol] 105 mg/dL Normal 0-129 [facility] [place] Comment on above: Performed By: #### M DW, GFR, BMP, ADIFF, ANEU, CBC, TROPHS #### [address] [address] Triglyceride [Mass/Vol] 42 mg/dL Normal 3-149 [facility] ([place] Comment on above: Performed By: #### M DW, GFR, BMP, ADIFF, ANEU, CBC, TROPHS #### [address] [address] PSAon 07-19-2022 Prostate Specific Antigen 1.28 ng/mL Normal 0.02-4.00 [facility] ([place] Comment on above: Result Comment: Leonela ent results determined by assays using different manufacturers for methods may not be comparable. Performed By: #### M DW, GFR, BMP, ADIFF, ANEU, CBC, TROPHS #### [address] [address] .Auto Diffon 02-11-2022 Basophil, Absolute 0.0 10 3/mcL Normal 0.0-0.2 [facility] ([place]) Comment on above: Performed By: #### MONI DARLING9 #### [place] [address] Basophils/100 WBC (Bld) 0.4 % Normal 0.0-2.5 [facility] ([place]) Comment on above: Performed By: #### MONI DARLING9 #### [address] [address] Eosinophil, Absolute 0.0 10 3/mcL Normal 0.0-0.4 [facility] ([place]) Comment on above: Performed By: #### MONI DARLING9 #### [address] [address] Eosinophils/100 WBC (Bld) 0.6 % Normal 0.0-7.0 [facility] [place] Comment on above: Performed By: #### MONI DARLING9 #### [address] [address] Lymphocyte, Absolute 0.9 10 3/mcL Normal 0.8-3.9 [facility] ([place] Comment on above: Performed By: #### MONI DARLING9 #### [address] [address] Lymphocytes/100 WBC (Bld) 12.4 % Normal 10.0-50.0 [facility] [place] Comment on above: Performed By: #### MONI DARLING9 #### [address] [address] Monocyte, Absolute 0.8 10 3/mcL Normal 0.2-1.0 [facility] ([place]) Comment on above: Performed By: #### MONI DARLING9 #### [address] [address] Monocytes/100 WBC (Bld) 9.9 % Normal 1.7-13.0 [facility] ([place] Comment on above: Performed By: #### MONI DARLING9 #### [address] [address] Neutrophils/100 WBC (Bld) 76.7 % Normal 37.0-80.0 [facility] [place] Comment on above: Performed By: #### MONI DARLING9 #### [address] [address] .GFRon 02-11-2022 GFR 105 ml/min/1.73sqm Normal [facility] [place] Comment on above: Result Comment: GFR Population mean for , Non- Americans Ages 20-29 = 116 mL/min/1.73 sq.m. Ages 30-39 = 107 mL/min/1.73 sq.m. Ages 40-49 = 99 mL/min/1.73 sq.m. Ages 50-59 = 93 mL/min/1.73 sq.m. Ages 60-69 = 85 mL/min/1.73 sq.m. Ages 70+ = 75 mL/min/1.73 sq.m. Chronic Kidney Disease: Less than 60 mL/min/1.73 square meters End Stage Renal Disease: Less than 15 mL/min/1.73 square meters Performed By: #### Vinita DENTON COVD19 #### [address] [address] GFR Non- 86 ml/min/1.73sqm Normal [facility] ([place] Comment on above: Result Comment: GFR Population mean for , Non- Americans Ages 20-29 = 116 mL/min/1.73 sq.m. Ages 30-39 = 107 mL/min/1.73 sq.m. Ages 40-49 = 99 mL/min/1.73 sq.m. Ages 50-59 = 93 mL/min/1.73 sq.m. Ages 60-69 = 85 mL/min/1.73 sq.m. Ages 70+ = 75 mL/min/1.73 sq.m. Chronic Kidney Disease: Less than 60 mL/min/1.73 square meters End Stage Renal Disease: Less than 15 mL/min/1.73 square meters Performed By: #### MONI DARLING9 #### [address] [address] .MDWon 02-11-2022 Monocyte Distribution Width 21.77 High 0.00-20.00 [facility] [place] Comment on above: Result Comment: For adults in ED, MDW>20.0 may be associated with a higher risk of sepsis during the first 12hrs of hospital admission Performed By: ###DUNCAN PTETY #### [address] [address] .NEUABSon 02-11-2022 Neutrophil, Absolute 5.8 10 3/mcL Normal 2.9-6.2 [facility] ([place]) Comment on above: Performed By: #### MONI DARLING9 #### [address] [address] BMPon 02-11-2022 BUN/Creatinine Ratio 19 ratio Normal 7-27 [facility] ([place]) Comment on above: Performed By: #### MONI DARLING9 #### [address] [address] Calcium [Mass/Vol] 8.7 mg/dL Normal 8.4-10.2 [facility] ([place]) Comment on above: Performed By: #### Vinita DENTON, COVD19 #### [address] [address] Chloride [Moles/Vol] 100 mmol/L Normal 98-107 [facility] ([place]) Comment on above: Performed By: #### Vinita DENTON, COVD19 #### [address] [address] CO2 [Moles/Vol] 29 mmol/L Normal 23-31 [facility] [place] Comment on above: Performed By: #### Vinita DENTON, COVD19 #### [address] [address] Creatinine [Mass/Vol] 0.89 mg/dL Normal 0.70-1.30 [facility] ([place]) Comment on above: Performed By: #### Vinita DENTON COVLilli9 #### [address] [address] Electrolyte Balance 9.0 mEq/L Normal 4.0-15.0 [facility] Comment on above: Performed By: #### Vinita DENTON COVLilli9 #### [address] [address] Glucose [Mass/Vol] 161 mg/dL High 80-115 [facility] ([place] Comment on above: Performed By: #### Vinita DENTON, COVD19 #### [address] [address] Potassium [Moles/Vol] 3.9 mmol/L Normal 3.5-5.1 [facility] ([place] Comment on above: Performed By: #### Vinita DENTON, COVD19 #### [address] [address] Sodium [Moles/Vol] 138 mmol/L Normal 136-145 [facility] ([place] Comment on above: Performed By: #### Vinita DENTON, COVD19 #### [address] [address] Urea nitrogen [Mass/Vol] 17 mg/dL Normal 7-18 [facility] [place] Comment on above: Performed By: #### MONI DARLING9 #### [address] [address] CBCon 02-11-2022 Erythrocyte distribution width (RBC) [Ratio] 13.6 % Normal 11.5-14.5 [facility] [place] Comment on above: Performed By: #### MONI DARLING9 #### Keisha [address] [address] Hematocrit (Bld) [Volume fraction] 45.2 % Normal 42.0-52.0 [facility] [place] Comment on above: Performed By: #### MONI DARLING9 #### Keisha [address] [address] Hgb 15.5 G/dL Normal 14.0-18.0 [facility] [place] Comment on above: Performed By: #### MONI DARLING9 #### Keisha [address] [address] MCH (RBC) [Entitic mass] 29.6 pg Normal 27.0-31.2 [facility] [place] Comment on above: Performed By: #### MONI DARLING9 #### [address] [address] MCHC 34.2 G/dL Normal 31.8-35.4 [facility] [place] Comment on above: Performed By: #### MONI DARLING9 #### Keisha [address] [address] MCV (RBC) [Entitic vol] 86.6 fL Normal 80.0-94.0 [facility] ([place]) Comment on above: Performed By: #### MONI DARLING9 #### Keisha [address] [address] Platelet 147 10 3/mcL Normal 130-400 [facility] [place] Comment on above: Performed By: #### MONI DARLING9 #### [address] [address] Platelet mean volume (Bld) [Entitic vol] 6.9 fL Low 7.4-10.4 [facility] [place] Comment on above: Performed By: #### F LURSV, COVD19 #### [address] [address] RBC 5.22 10 6/mcL Normal 4.04-6.13 [facility] [place] Comment on above: Performed By: #### F LURSV, COVD19 #### [address] [address] WBC 7.6 10 3/mcL Normal 4.6-10.8 [facility] [place] Comment on above: Performed By: #### F LURSV, COVD19 #### [address] [address] [id number] 02-11-2022 SARS-CoV-2 (COVID-19) RNA GALEN+probe Ql (Unsp spec) Negative Normal Negative [facility] [place] Comment on above: Performed By: #### M DW, GFR, BMP, ADIFF, ANEU, CBC, TROPHS #### [address] [address] SARS-CoV-2 (COVID-19) RNA GALEN+probe Ql (Unsp spec) Normal [facility] ([place] Comment on above: Result Comment: Nega tive results do not preclude SARS-CoV-2 infection and should not be used as the sole basis for patient management decisions. Negative results must be combined with clinical observations, patient history, and epidemiological information. There is a risk of false negative values resulting from improperly collected, transported, or handled specimens. There is a risk of false negative values due to the presence of sequence variants in the pathogen targets of the assay, procedural errors, amplification inhibitors in specimens, or inadequate numbers of organisms for amplification. EDUARDO SARS-CoV-2 Assay is a Real-Time reverse-transcriptase polymerase chain reaction (RT-PCR) based qualitative in vitro diagnostic test intended for the qualitative detection of nucleic acid from the SARS-CoV-2 in nasopharyngeal swab specimens collected from individuals suspected of COVID-19 by their healthcare provider. Testing is limited to laboratories certified under the Clinical Laboratory Improvement Amendments of 1988 (CLIA), 42 U.S.C. ?263a, to perform moderate and high complexity tests. COVID-19 Int Performed By: #### M DW, GFR, BMP, ADIFF, ANEU, CBC, TROPHS #### [place] [address] [place], [place] [address] FLURSVon 02-11-2022 Flu A PCR (AO) Negative Normal Negative [facility] ([place]) Comment on above: Result Comment: Posi tive Results: Positive Flu A/B or RSV for by PCR. Positive test results do not rule out bacterial infection or co-infection with other pathogens. Test results should be interpreted in conjunction with other laboratory and clinical data. Negative Results: Negative for by PCR. Negative test results do not preclude influenza virus or RSV infection and should not be used as the sole basis for diagnosis, treatment, or other management decisions. There is a risk of false negative RSV results when at low concentration and in the presence of co-infection with high concentration of influenza A. Invalid Results: An Invalid result (INV) was obtained. The test was repeated with similar results. REPEAT COLLECTION AND TESTING IS RECOMMENDED. The [employer] Flu A/B & RSV Assay is a real-time polymerase chain reaction (PCR) based qualitative in vitro diagnostic test for the direct detection and differentiation of influenza A virus, influenza B virus, and respiratory syncytial virus (RSV) nucleic acid in nasopharyngeal swab (ASSISTANT PROFESSOR OF NURSING) specimens from patients with signs and symptoms of respiratory infection in conjunction with clinical and laboratory findings. The test is intended for use as an aid in the differential diagnosis of influenza A virus, influenza B virus, and RSV in humans and is not intended to detect influenza C. Performed By: #### F LURSV #### [place] [address] [place], [place] [address] Flu B PCR (AO) Negative Normal Negative [facility] ([place] Comment on above: Result Comment: Posi tive Results: Positive Flu A/B or RSV for by PCR. Positive test results do not rule out bacterial infection or co-infection with other pathogens. Test results should be interpreted in conjunction with other laboratory and clinical data. Negative Results: Negative for by PCR. Negative test results do not preclude influenza virus or RSV infection and should not be used as the sole basis for diagnosis, treatment, or other management decisions. There is a risk of false negative RSV results when at low concentration and in the presence of co-infection with high concentration of influenza A. Invalid Results: An Invalid result (INV) was obtained. The test was repeated with similar results. REPEAT COLLECTION AND TESTING IS RECOMMENDED. The [employer] Flu A/B & RSV Assay is a real-time polymerase chain reaction (PCR) based qualitative in vitro diagnostic test for the direct detection and differentiation of influenza A virus, influenza B virus, and respiratory syncytial virus (RSV) nucleic acid in nasopharyngeal swab (ASSISTANT PROFESSOR OF NURSING) specimens from patients with signs and symptoms of respiratory infection in conjunction with clinical and laboratory findings. The test is intended for use as an aid in the differential diagnosis of influenza A virus, influenza B virus, and RSV in humans and is not intended to detect influenza C. Performed By: #### F LURS #### [address] [address] RSV PCR (AO) Positive Critically abnormal Negative [facility] ([place]) Comment on above: Result Comment: Posi tive Results: Positive Flu A/B or RSV for by PCR. Positive test results do not rule out bacterial infection or co-infection with other pathogens. Test results should be interpreted in conjunction with other laboratory and clinical data. Negative Results: Negative for by PCR. Negative test results do not preclude influenza virus or RSV infection and should not be used as the sole basis for diagnosis, treatment, or other management decisions. There is a risk of false negative RSV results when at low concentration and in the presence of co-infection with high concentration of influenza A. Invalid Results: An Invalid result (INV) was obtained. The test was repeated with similar results. REPEAT COLLECTION AND TESTING IS RECOMMENDED. The Eduardo Flu A/B & RSV Assay is a real-time polymerase chain reaction (PCR) based qualitative in vitro diagnostic test for the direct detection and differentiation of influenza A virus, influenza B virus, and respiratory syncytial virus (RSV) nucleic acid in nasopharyngeal swab (ASSISTANT PROFESSOR OF NURSING) specimens from patients with signs and symptoms of respiratory infection in conjunction with clinical and laboratory findings. The test is intended for use as an aid in the differential diagnosis of influenza A virus, influenza B virus, and RSV in humans and is not intended to detect influenza C. Performed By: #### F LURSV #### [place] [address] LABORATORYOrdered By: Elysia Salazar on 02-11-2022 Basophil, Absolute 0.0 103/mcL Invalid Interpretation Code 0.0 - 0.2 10^3/mcL AO Workflow SS Basophils/100 WBC (Bld) 0.4 % Invalid Interpretation Code 0.0 - 2.5 % AO Workflow SS Calcium [Mass/Vol] 8.7 mg/dL Invalid Interpretation Code 8.4 - 10.2 mg/dL AO ADM SS Chloride [Moles/Vol] 100 mmol/L Invalid Interpretation Code 98 - 107 mmol/L AO ADM SS CO2 [Moles/Vol] 29 mmol/L Invalid Interpretation Code 23 - 31 mmol/L AO ADM SS Creatinine [Mass/Vol] 0.89 mg/dL Invalid Interpretation Code 0.70 - 1.30 mg/dL AO ADM SS Electrolyte Balance 9.0 mEq/L Invalid Interpretation Code 4.0 - 15.0 mEq/L AO ADM SS Eosinophil, Absolute 0.0 103/mcL Invalid Interpretation Code 0.0 - 0.4 10^3/mcL AO Workflow SS Eosinophils/100 WBC (Bld) 0.6 % Invalid Interpretation Code 0.0 - 7.0 % AO Workflow SS Erythrocyte distribution width (RBC) [Ratio] 13.6 % Invalid Interpretation Code 11.5 - 14.5 % AO Workflow SS FLUAV RNA GALEN+probe Ql (Upper resp) Negative (02/11/22 10:16 AM) Invalid Interpretation Code Negative AO Auto Urine SS FLUBV RNA GALEN+probe Ql (Upper resp) Negative (02/11/22 10:16 AM) Invalid Interpretation Code Negative AO Auto Urine SS Glucose [Mass/Vol] 161 mg/dL Invalid Interpretation Code 80 - 115 mg/dL AO ADM SS Hematocrit (Bld) [Volume fraction] 45.2 % Invalid Interpretation Code 42.0 - 52.0 % AO Workflow SS Hemoglobin (Bld) [Mass/Vol] 15.5 G/dL Invalid Interpretation Code 14.0 - 18.0 G/dL AO Workflow SS Lymphocyte, Absolute 0.9 103/mcL Invalid Interpretation Code 0.8 - 3.9 10^3/mcL AO Workflow SS Lymphocytes/100 WBC (Bld) 12.4 % Invalid Interpretation Code 10.0 - 50.0 % AO Workflow SS MCH (RBC) [Entitic mass] 29.6 pg Invalid Interpretation Code 27.0 - 31.2 pg AO Workflow SS MCHC 34.2 G/dL Invalid Interpretation Code 31.8 - 35.4 G/dL AO Workflow SS MCV (RBC) [Entitic vol] 86.6 fL Invalid Interpretation Code 80.0 - 94.0 fL AO Workflow SS Monocyte distribution width Auto (Bld) [Entitic vol] 21.77 Invalid Interpretation Code 0.00 - 20.00 AO Workflow SS Comment on above: Result Comment: For adults in ED, MDW>20.0 may be associated with a higher risk of sepsis during the first 12hrs of hospital admission Monocyte, Absolute 0.8 103/mcL Invalid Interpretation Code 0.2 - 1.0 10^3/mcL AO Workflow SS Monocytes/100 WBC (Bld) 9.9 % Invalid Interpretation Code 1.7 - 13.0 % AO Workflow SS Natriuretic peptide.B prohormone N-Terminal [Mass/Vol] 164 pg/mL Invalid Interpretation Code 0 - 125 pg/mL AO ADM SS Neutrophil, Absolute 5.8 103/mcL Invalid Interpretation Code 2.9 - 6.2 10^3/mcL AO Workflow SS Neutrophils/100 WBC (Bld) 76.7 % Invalid Interpretation Code 37.0 - 80.0 % AO Workflow SS Platelet mean volume (Bld) [Entitic vol] 6.9 fL Invalid Interpretation Code 7.4 - 10.4 fL AO Workflow SS Platelets (Bld) [#/Vol] 147 103/mcL Invalid Interpretation Code 130 - 400 10^3/mcL AO Workflow SS Potassium [Moles/Vol] 3.9 mmol/L Invalid Interpretation Code 3.5 - 5.1 mmol/L AO ADM SS RBC (Bld) [#/Vol] 5.22 106/mcL Invalid Interpretation Code 4.04 - 6.13 10^6/mcL AO Workflow SS RSV RNA GALEN+probe Ql (Upper resp) Positive *CRIT* (02/11/22 10:16 AM) Invalid Interpretation Code Negative AO Auto Urine SS SARS-CoV-2 (COVID-19) RNA GALEN+probe Ql (Resp) Negative results do not preclude SARS-CoV-2 infection and should not be used as the sole basis for patient management decisions. Negative results must be combined with clinical observations, patient history, and epidemiological information.There is a risk of false negative values resulting from improperly collected, transported, or handled specimens.There is a risk of false negative values due to the presence of sequence variants in the pathogen targets of the assay, procedural errors, amplification inhibitors in specimens, or inadequate numbers of organisms for amplification.EDUARDO SARS-CoV-2 Assay is a Real-Time reverse-transcriptas e polymerase chain reaction (RT-PCR) based qualitative in vitro diagnostic test intended for the qualitative detection of nucleic acid from the SARS-CoV-2 in nasopharyngeal swab specimens collected from individuals suspected of COVID-19 by their healthcare provider. Testing is limited to laboratories certified under the Clinical Laboratory Improvement Amendments of 1988 (CLIA), 42 U.S.C. 263a, to perform moderate and high complexity tests. Invalid Interpretation Code AO Auto Urine SS Sodium [Moles/Vol] 138 mmol/L Invalid Interpretation Code 136 - 145 mmol/L AO ADM SS Troponin I.cardiac DL <= 0.01 ng/mL [Mass/Vol] 13.8 ng/L Invalid Interpretation Code 0.0 - 76.2 ng/L AO ADM SS Urea nitrogen [Mass/Vol] 17 mg/dL Invalid Interpretation Code 7 - 18 mg/dL AO ADM SS Urea nitrogen/Creatinine [Mass ratio] 19 ratio Invalid Interpretation Code 7 - 27 ratio AO ADM SS WBC (Bld) [#/Vol] 7.6 103/mcL Invalid Interpretation Code 4.6 - 10.8 10^3/mcL AO Workflow SS LABORATORYOrdered By: SYSTEM SYSTEM on 02-11-2022 GFR 105 ml/min/1.73sqm Invalid Interpretation Code AO Chemistry S GFR Non- 86 ml/min/1.73sqm Invalid Interpretation Code AO Chemistry S PBNPon 02-11-2022 Natriuretic peptide B (Bld) [Mass/Vol] 164 pg/mL High 0-125 [facility] Comment on above: Result Comment: NT-p roBNP results of less than 300 pg/mL effectively rules out acute congestive heart failure with 99% negative predictive value. Performed By: #### F MONI DENTON9 #### [place] [address] [address] [facility] 02-11-2022 Troponin I High Sensitivity 13.8 ng/L Normal 0.0-76.2 [facility] ([place]) Comment on above: Performed By: #### F LURSV, COVD19 #### [facility] [address] [place], [place] [address] XR CHEST 2 VIEWSon 2 XR CHEST 2 VIEWS ORIGINAL EXAMINATION: TWO XRAY VIEWS OF THE CHEST 02/11/2022 10:37 am COMPARISON: Prior chest x-ray dated 05/12/2019. HISTORY: ORDERING SYSTEM PROVIDED HISTORY: Reason for Exam: SOB/Cough/Fever FINDINGS: The cardiomediastinal silhouette demonstrates a normal appearance on frontal view. Lateral view demonstrates dilation of the right pulmonary artery possibly indicative of pulmonary arterial hypertension. The lungs are hyperinflated with flattened diaphragms and increased retrosternal airspace on the basis of underlying emphysema/COPD change. No consolidative opacity is identified. There is no pleural effusion or pneumothorax. No free air seen beneath the level of the diaphragm. The bony thorax appears acutely intact. IMPRESSION: No evidence of an acute process. Hyperinflated lungs on the basis of underlying emphysema/COPD change. Prominent pulmonary artery on lateral view indicative of pulmonary arterial hypertension. Interpreted by: Salina Yu MD Preliminary Report By: Salina Yu MD Electronically signed By Salina Yu MD Dictated Date: 02/11/2022 10:47:33 AM Prelim Date: 02/11/2022 10:50:09 AM Sign Date: 02/11/2022 10:50:09 AM Ordering Provider: EDITH Hamilton [facility]) LABORATORYOrdered By: Kaylene Dinero on 04-06-2021 Hemoglobin.gastrointest inal Ql (Stl) Negative (04/06/21 2:05 PM) Invalid Interpretation Code Negative AO Rapid Testing SS .Auto Diffon 10-24-2018 Ammonia (P) [Mass/Vol] 0.50 10 3/mcL Normal 0.09-1.40 [facility] ([place] Comment on above: Performed By: #### C BC, ADIFF, ANEU, PSA, CMP, GFR, LIPID #### [address] [address] Basophils (Bld) [#/Vol] 0.10 10 3/mcL Normal 0.00-0.27 [facility] [place] Comment on above: Performed By: #### C BC, ADIFF, ANEU, PSA, CMP, GFR, LIPID #### [address] [address] Basophils/100 WBC (Bld) 1.1 % Normal 0.0-2.5 [facility] ([place]) Comment on above: Performed By: #### C BC, ADIFF, ANEU, PSA, CMP, GFR, LIPID #### [address] [address] Eosinophils (Bld) [#/Vol] 0.10 10 3/mcL Normal 0.00-0.65 [facility] Comment on above: Performed By: #### C BC, ADIFF, ANEU, PSA, CMP, GFR, LIPID #### [address] [address] Eosinophils/100 WBC (Bld) 0.6 % Normal 0.0-6.0 [facility] [place] Comment on above: Performed By: #### C BC, ADIFF, ANEU, PSA, CMP, GFR, LIPID #### [address] [address] Lymphocytes (Bld) [#/Vol] 1.80 10 3/mcL Normal 0.90-4.32 [facility] [place] Comment on above: Performed By: #### C BC, ADIFF, ANEU, PSA, CMP, GFR, LIPID #### [address] [address] Lymphocytes/100 WBC (Bld) 22.4 % Normal 20.0-40.0 [facility] [place] Comment on above: Performed By: #### C BC, ADIFF, ANEU, PSA, CMP, GFR, LIPID #### [address] [address] Monocytes/100 WBC (Bld) 6.7 % Normal 2.0-13.0 [facility] ([place]) Comment on above: Performed By: #### C BC, ADIFF, ANEU, PSA, CMP, GFR, LIPID #### [address] [address] Neutrophils/100 WBC (Bld) 69.2 % Normal 50.0-75.0 [facility] [place] Comment on above: Performed By: #### C BC, ADIFF, ANEU, PSA, CMP, GFR, LIPID #### [address] [address] .GFRon 10-24-2018 GFR >60 Normal [facility] ([place]) Comment on above: Result Comment: GFR Population mean for , Non- Americans Ages 20-29 = 116 mL/min/1.73 sq.m. Ages 30-39 = 107 mL/min/1.73 sq.m. Ages 40-49 = 99 mL/min/1.73 sq.m. Ages 50-59 = 93 mL/min/1.73 sq.m. Ages 60-69 = 85 mL/min/1.73 sq.m. Ages 70+ = 75 mL/min/1.73 sq.m. Chronic Kidney Disease: Less than 60 mL/min/1.73 square meters End Stage Renal Disease: Less than 15 mL/min/1.73 square meters Performed By: #### C BC, ADIFF, ANEU, PSA, CMP, GFR, LIPID #### [address] [address] GFR Non- >60 Normal [facility] Comment on above: Result Comment: GFR Population mean for , Non- Americans Ages 20-29 = 116 mL/min/1.73 sq.m. Ages 30-39 = 107 mL/min/1.73 sq.m. Ages 40-49 = 99 mL/min/1.73 sq.m. Ages 50-59 = 93 mL/min/1.73 sq.m. Ages 60-69 = 85 mL/min/1.73 sq.m. Ages 70+ = 75 mL/min/1.73 sq.m. Chronic Kidney Disease: Less than 60 mL/min/1.73 square meters End Stage Renal Disease: Less than 15 mL/min/1.73 square meters Performed By: #### C BC, ADIFF, ANEU, PSA, CMP, GFR, LIPID #### [address] [address] .NEUABSon 10-24-2018 Neutrophils (Bld) [#/Vol] 5.50 10 3/mcL Normal 2.25-8.10 [facility] Comment on above: Performed By: #### C BC, ADIFF, ANEU, PSA, CMP, GFR, LIPID #### [place] [address] CBCon 10-24-2018 Erythrocyte distribution width (RBC) [Ratio] 14.7 % Normal 11.5-15.5 [facility] Comment on above: Performed By: #### C BC, ADIFF, ANEU, PSA, CMP, GFR, LIPID #### [place] [address] Hematocrit (Bld) [Volume fraction] 49.2 % Normal 40.0-52.0 [facility] [place] Comment on above: Performed By: #### C BC, ADIFF, ANEU, PSA, CMP, GFR, LIPID #### [place] [address] Hemoglobin (Bld) [Mass/Vol] 16.6 G/dL Normal 13.0-17.5 [facility] [place] Comment on above: Performed By: #### C BC, ADIFF, ANEU, PSA, CMP, GFR, LIPID #### [place] [address] MCH (RBC) [Entitic mass] 30.1 pg Normal 27.0-33.0 [facility] [place] Comment on above: Performed By: #### C BC, ADIFF, ANEU, PSA, CMP, GFR, LIPID #### [place] [address] MCHC (RBC) [Mass/Vol] 33.8 G/dL Normal 32.0-36.0 [facility] ([place]) Comment on above: Performed By: #### C BC, ADIFF, ANEU, PSA, CMP, GFR, LIPID #### [place] [address] MCV (RBC) [Entitic vol] 89.1 fL Normal 81.0-100.0 [facility] ([place]) Comment on above: Performed By: #### C BC, ADIFF, ANEU, PSA, CMP, GFR, LIPID #### [address] [address] Platelet mean volume (Bld) [Entitic vol] 7.8 fL Normal 6.4-10.5 [facility] ([place] Comment on above: Performed By: #### C BC, ADIFF, ANEU, PSA, CMP, GFR, LIPID #### [place] [id number] Platelets (Bld) [#/Vol] 205 10 3/mcL Normal 150-450 [facility] Comment on above: Performed By: #### C BC, ADIFF, ANEU, PSA, CMP, GFR, LIPID #### [place] [address] RBC (Bld) [#/Vol] 5.53 10 6/mcL Normal 4.50-6.00 [facility] ([place]) Comment on above: Performed By: #### C BC, ADIFF, ANEU, PSA, CMP, GFR, LIPID #### [place] [id number] WBC (Bld) [#/Vol] 7.90 10 3/mcL Normal 4.50-10.80 [facility] ([place]) Comment on above: Performed By: #### C BC, ADIFF, ANEU, PSA, CMP, GFR, LIPID #### [place] [id number] CMPon 10-24-2018 Albumin/Globulin [Mass ratio] 1.4 {ratio} Normal 0.9-1.6 [facility] [place] Comment on above: Performed By: #### C BC, ADIFF, ANEU, PSA, CMP, GFR, LIPID #### [place] [id number] ALP [Catalytic activity/Vol] 73 U/L Normal 38-126 [facility] Comment on above: Performed By: #### C BC, ADIFF, ANEU, PSA, CMP, GFR, LIPID #### [facility] [address] [place], [place] [address] ALT [Catalytic activity/Vol] 29 U/L Normal 12-55 [facility] [place] Comment on above: Performed By: #### C BC, ADIFF, ANEU, PSA, CMP, GFR, LIPID #### [address] [address] Bili Total 0.6 mg/dL Normal 0.2-1.2 [facility] [place] Comment on above: Performed By: #### C BC, ADIFF, ANEU, PSA, CMP, GFR, LIPID #### [address] [address] Creatinine [Mass/Vol] 0.78 mg/dL Normal 0.60-1.40 [facility] ([place]) Comment on above: Performed By: #### C BC, ADIFF, ANEU, PSA, CMP, GFR, LIPID #### [address] [address] Globulin (S) [Mass/Vol] 3.0 G/dL Normal 1.5-3.8 Count includes the [facility] ([place]) Comment on above: Performed By: #### C BC, ADIFF, ANEU, PSA, CMP, GFR, LIPID #### [address] [address] Protein [Mass/Vol] 7.1 G/dL Normal 6.0-8.5 [facility] ([place]) Comment on above: Performed By: #### C BC, ADIFF, ANEU, PSA, CMP, GFR, LIPID #### [address] [address] Urea nitrogen/Creatinine [Mass ratio] 17.9 ratio Normal 10.0-22.0 [facility] ([place] Comment on above: Performed By: #### C BC, ADIFF, ANEU, PSA, CMP, GFR, LIPID #### [address] [address] Albumin [Mass/Vol] 4.1 G/dL Normal 3.2-4.8 [facility] ([place]) Comment on above: Performed By: #### C BC, ADIFF, ANEU, PSA, CMP, GFR, LIPID #### [address] [address] AST [Catalytic activity/Vol] 15 U/L Normal 8-34 [facility] ([place] Comment on above: Performed By: #### C BC, ADIFF, ANEU, PSA, CMP, GFR, LIPID #### [address] [address] Calcium [Mass/Vol] 9.6 mg/dL Normal 8.4-10.1 [facility] ([place]) Comment on above: Performed By: #### C BC, ADIFF, ANEU, PSA, CMP, GFR, LIPID #### [address] [address] Chloride [Moles/Vol] 108 mmol/L Normal 98-110 [facility] ([place]) Comment on above: Performed By: #### C BC, ADIFF, ANEU, PSA, CMP, GFR, LIPID #### [address] [address] CO2 [Moles/Vol] 25 mmol/L Normal 22-32 [facility] ([place] Comment on above: Performed By: #### C BC, ADIFF, ANEU, PSA, CMP, GFR, LIPID #### [place] [address] Electrolyte Balance 9.0 mEq/L Normal 4.0-15.0 [facility] Comment on above: Performed By: #### C BC, ADIFF, ANEU, PSA, CMP, GFR, LIPID #### [address] [address] Glucose [Mass/Vol] 93 mg/dL Normal 70-110 [facility] ([place]) Comment on above: Performed By: #### C BC, ADIFF, ANEU, PSA, CMP, GFR, LIPID #### [address] [address] Potassium [Moles/Vol] 4.4 mmol/L Normal 3.5-5.0 [facility] ([place] Comment on above: Performed By: #### C BC, ADIFF, ANEU, PSA, CMP, GFR, LIPID #### [address] [address] Sodium [Moles/Vol] 142 mmol/L Normal 136-145 [facility] ([place]) Comment on above: Performed By: #### C BC, ADIFF, ANEU, PSA, CMP, GFR, LIPID #### [address] [address] Urea nitrogen [Mass/Vol] 14.0 mg/dL Normal 8.0-22.0 [facility] ([place] Comment on above: Performed By: #### C BC, ADIFF, ANEU, PSA, CMP, GFR, LIPID #### [address] [address] LIPIDon 10-24-2018 Cholesterol [Mass/Vol] 203 mg/dL High 50-199 [facility] ([place]) Comment on above: Result Comment: Chol esterol Reference Interval: Less than 200 Desirable 200-239 Borderline high risk 240 and above High risk Performed By: #### C BC, ADIFF, ANEU, PSA, CMP, GFR, LIPID #### [address] [address] Cholesterol in HDL [Mass/Vol] 53 mg/dL Normal 40-59 [facility] Comment on above: Result Comment: HDL Reference Interval: Less than 40 Low - high risk 60 or above Optimal/lowers risk Performed By: #### C BC, ADIFF, ANEU, PSA, CMP, GFR, LIPID #### [address] [address] Cholesterol in LDL [Mass/Vol] 139 mg/dL High 0-129 [facility] ([place] Comment on above: Result Comment: LDL is a calculated result and requires a 12-hr fast. LDL Reference Interval: Less than 100 Optimal 100-129 Near or above optimal 130-159 Borderline high risk 160-189 High risk 190 and above Very high risk Performed By: #### C BC, ADIFF, ANEU, PSA, CMP, GFR, LIPID #### [address] [address] Triglyceride [Mass/Vol] 53 mg/dL Normal 3-149 [facility] ([place]) Comment on above: Result Comment: Trig lyceride Reference Interval: Less than 150 Normal 150-199 Borderline high risk 200-499 High risk 500 or higher Very high risk Performed By: #### C BC, ADIFF, ANEU, PSA, CMP, GFR, LIPID #### [address] [address] PSAon 10-24-2018 Prostate Specific Antigen 1.38 ng/mL Normal 0.02-4.00 [facility] ([place] Comment on above: Performed By: #### C BC, ADIFF, ANEU, PSA, CMP, GFR, LIPID #### [facility] [address] [place] [address] CNOVon 09-30-2018 CNOV Office Visit ([facility]WSTR) RAUDEL VEGA ([id number]) 1960 M Date Time Provider Department 09/30/18 6:30 PM CORY FRANCE RUST During your visit today, we recorded the following information about you: Temperature Pulse Respiration Blood pressure 98.7 degrees 72/minute 16/minute 130/82 Weight 60.7 kg Cory France MD 09/30/2018 7:33 PM Signed Patient presents with: cough and congestion and left ear pain: has had for a while but much worse today-ear pain started 1 month ago HPI: Having trouble breathing since last fall, initial episode was notice after being in a [place]. Breathing seems worse with dust, heat, and exertion. Flared up worse for 2 weeks. He had an episode while carrying 2 buckets of concrete that was bad enough he thought he might pass out. Positive symptoms: left ear does not feel right, cough sometimes productive of clear phlegm, Shortness of breath on exertion, left sacral pain, fatigue, Negative symptoms: Wheezing, Chest tightness, Chest pain, Fever, Chills, hemoptysis, weight change OTC: none. 1PPD since 14yo No inhaler use. He has had walking pneumonia 30 years ago. PAST MEDICAL HISTORY Diagnosis Date - Anxiety - Insomnia - Tobacco use disorder 1 PPD, started 14yo - Trauma to eye, right 07/31/1995 limited right eye vision since PAST SURGICAL HISTORY Procedure Laterality Date - EYE SURGERY PROCEDURE 07/31/1995 Repair ruptured globe right eye - HERNIA REPAIR HX - KNEE ARTHROSCOPY - REMOVE TUMOR OF SHOULDER childhood MEDICATIONS: Takes fish oil and vitamin C. Current Outpatient Medications: MULTIVITAMIN ORAL Take by mouth once daily. Centrum No current facility-administere d medications for this visit. ALLERGIES: ALLERGIES No Known Allergies VITALS: BP 130/82 Pulse 72 Temp 37.1 ?C (98.7 ?F) (Tympanic) Resp 16 Wt 60.7 kg (133 lb 12.8 oz) SpO2 95% PHYSICAL EXAM: GEN: Pleasant, in no acute distress. Lean. Accompanied by his . HEENT: PERRL, EOMI, conjunctiva clear Ears: small flakes of adherent cerumen in the left canal. right canal clear. TMs without erythema, bulge, or effusion Sinuses: non-tender frontal sinus, non-tender maxillary sinuses Throat: moist mucous membranes, no erythema, no exudate, raspy voice Neck: supple, no thyromegaly, no lymphadenopathy HEART: regular rate and rhythm, no murmurs LUNGS: Distant breath sounds but clear to auscultation, no wheezes or crackles, no increased WOB CHEST: Barrel chest Hip: Left posterior sacroiliac joint tender ASSESSMENT/PLAN: 1. Cough - ICD9: 786.2, ICD10: R05 (primary diagnosis) 2. SOB (shortness of breath) - ICD9: 786.05, ICD10: R06.02 - XR CHEST 2V FRONTAL/LAT - negative - ALBUTEROL SULFATE 2.5 MG/3 ML (0.083 %) SOLUTION FOR NEBULIZATION - slight subjective improvement in breathing, pulse ox 97%, and unchanged exam after nebulizer treatment. - ALBUTEROL SULFATE HFA 90 MCG/ACTUATION AEROSOL INHALER - INHALATIONAL SPACING DEVICE Probable COPD, cannot rule out cardiac dyspnea. He agrees to f/u with PCP for further evaluation. MD Elysia Yanez LPN 09/30/2018 7:28 PM Signed 2.5 solution aerosol treatment given per provider's orders. Prior to treatment O2 sat is 95%. Treatment completed. O2 sat is 97%. Tolerated well. Elysia Welsh LPN Referring Provider: SELF [[id number]] Allergies As of Date: 09/30/2018 (No Known Allergies) Date Reviewed: 09/30/2018 Reviewed by: Elysia Welsh LPN - Fully Assessed Reason for Visit: cough and congestion and left ear pain [Other] Cmt: has had for a while but much worse today-ear pain started 1 month ago Primary Visit Diagnosis:Cough [R05] Other Visit Diagnosis:SOB (shortness of breath) [R06.02] Order(s):XR CHEST 2V FRONTAL/LAT [[id number]] Order #: [id number] FUTURE [] albuterol 2.5 mg /3 mL (0.083 %) 2.5 mg (PROVENTIL)Disp: Rfl: albuterol HFA (PROVENTIL HFA, VENTOLIN HFA) 90 mcg/actuation inhalerInhale 2 Puffs as instructed every 4 hours as needed for Wheezing/Shortness of Breath.Disp: 1 InhalerRfl: 0 Inhalational Spacing Device spcr1 Device one time only for 1 dose.Disp: 1 EachRfl: 0 Prescriptions as of 09/30/2018 Sig: * MULTIVITAMIN ORAL Take by mouth once daily. Ce* ALBUTEROL SULFATE HFA 90 MCG/* Inhale 2 Puffs as instructed * INHALATIONAL SPACING DEVICE 1 Device one time only for 1 * Problem List As Of Date: 09/30/2018 (None) Visit Notes: >> Elysia Welsh LPN SunSep 30, 2018 7:27 PM Status: Signed 2.5 solution aerosol treatment given per provider's orders. Prior to treatment O2 sat is 95%. Treatment completed. O2 sat is 97%. Tolerated well. Elysia Welsh LPN Prescriptions ordered this encounter Disp Refills Start End ALBUTEROL SULFATE 2.5 MG/3 ML (0.083* 09/30/2018 09/30/2018 Route: INHALATION ALBUTEROL SULFATE HFA 90 MCG/ACTUATI* 1 In* 0 09/30/2018 Cmt: Generic or brand: dispense inhaler preferred by patient/insurance unless CHRISTIAN flag is selected. Route: INHALATION Sig: Inhale 2 Puffs as instructed every 4 hours as needed for Wheezing/Shortness of Breath. INHALATIONAL SPACING DEVICE 1 Ea* 0 09/30/2018 09/30/2018 Route: [facility] Device one time only for 1 dose. Medications Discontinued During This Encounter LORAZEPAM (ATIVAN ORAL) 09/30/2018 Class: Historical Med Route: ORAL Sig: Take 2 tablets by mouth twice daily. Disc: Reason for discontinue is not on file. zolpidem (AMBIEN) 5 mg tablet 09/30/2018 Class: Historical Med Route: ORAL Sig: Take 5 mg by mouth at bedtime as needed. Disc: Reason for discontinue is not on file. Encounter Status:Closed by CORY FRANCE MD on 09/30/18 [facility] PROGRESSon 09-30-2018 PROGRESS HNO ID: [id number] Author: Tee Mckenna (Rt) Service: ? Author Type: Supply Teacher Type: Progress Notes Filed: 09/30/2018 6:59 PM Note Text: Radiology Service Progress Note PATIENT NAME: Raudel Vega DATE OF SERVICE: September 30, 2018 TIME: 6:53 PM PATIENT IDENTITY VERIFICATION COMPLETED USING TWO (2) METHODS: Patient confirmed name verbally and Date of . PATIENT GENDER DATA: Male PATIENT RELEVANT IMPLANT DATA REVIEWED: Not Applicable RADIOLOGY DEPARTMENT: General X-ray: Exam(s) Completed: Chest X-Ray PERIPHERAL IV DATA: Not applicable SIGNED BY: RT Clarisa September 30, 2018 6:53 PM [facility] PROGRESS HNO ID: [id number] Author: Cory France Service: ? Author Type: Physician Type: Progress Notes Filed: 09/30/2018 7:33 PM Note Text: Patient presents with: cough and congestion and left ear pain: has had for a while but much worse today-ear pain started 1 month ago HPI: Having trouble breathing since last fall, initial episode was notice after being in a [place]. Breathing seems worse with dust, heat, and exertion. Flared up worse for 2 weeks. He had an episode while carrying 2 buckets of concrete that was bad enough he thought he might pass out. Positive symptoms: left ear does not feel right, cough sometimes productive of clear phlegm, Shortness of breath on exertion, left sacral pain, fatigue, Negative symptoms: Wheezing, Chest tightness, Chest pain, Fever, Chills, hemoptysis, weight change OTC: none. 1PPD since 14yo No inhaler use. He has had walking pneumonia 30 years ago. PAST MEDICAL HISTORY Diagnosis Date - Anxiety - Insomnia - Tobacco use disorder 1 PPD, started 14yo - Trauma to eye, right 07/31/1995 limited right eye vision since PAST SURGICAL HISTORY Procedure Laterality Date - EYE SURGERY PROCEDURE 07/31/1995 Repair ruptured globe right eye - HERNIA REPAIR HX - KNEE ARTHROSCOPY - REMOVE TUMOR OF SHOULDER childhood MEDICATIONS: Takes fish oil and vitamin C. Current Outpatient Medications: MULTIVITAMIN ORAL Take by mouth once daily. Centrum No current facility-administere d medications for this visit. ALLERGIES: ALLERGIES No Known Allergies VITALS: BP 130/82 Pulse 72 Temp 37.1 ?C (98.7 ?F) (Tympanic) Resp 16 Wt 60.7 kg (133 lb 12.8 oz) SpO2 95% PHYSICAL EXAM: GEN: Pleasant, in no acute distress. Lean. Accompanied by his . HEENT: PERRL, EOMI, conjunctiva clear Ears: small flakes of adherent cerumen in the left canal. right canal clear. TMs without erythema, bulge, or effusion Sinuses: non-tender frontal sinus, non-tender maxillary sinuses Throat: moist mucous membranes, no erythema, no exudate, raspy voice Neck: supple, no thyromegaly, no lymphadenopathy HEART: regular rate and rhythm, no murmurs LUNGS: Distant breath sounds but clear to auscultation, no wheezes or crackles, no increased WOB CHEST: Barrel chest Hip: Left posterior sacroiliac joint tender ASSESSMENT/PLAN: 1. Cough - ICD9: 786.2, ICD10: R05 (primary diagnosis) 2. SOB (shortness of breath) - ICD9: 786.05, ICD10: R06.02 - XR CHEST 2V FRONTAL/LAT - negative - ALBUTEROL SULFATE 2.5 MG/3 ML (0.083 %) SOLUTION FOR NEBULIZATION - slight subjective improvement in breathing, pulse ox 97%, and unchanged exam after nebulizer treatment. - ALBUTEROL SULFATE HFA 90 MCG/ACTUATION AEROSOL INHALER - INHALATIONAL SPACING DEVICE Probable COPD, cannot rule out cardiac dyspnea. He agrees to f/u with PCP for further evaluation. Cory France MD Normal [facility] XR CHEST 2V FRONTAL/LATon XR CHEST 2V FRONTAL/LAT * * *Final Repor t* * * DATE OF EXAM: Sep 30 2018 6:59PM WOX [id number] - XR CHEST 2V FRONTAL/LAT / PROCEDURE REASON: multiple diagnoses * * * * Physician Interpretation * * * * EXAMINATION: CHEST RADIOGRAPH (2 VIEW FRONTAL and LATERAL) CLINICAL HISTORY: Cough SOB (shortness of breath) MQ: [id number] Comparison: Cough RESULT: Lines, tubes, and devices: None. Lungs and pleura: No consolidation. No lung mass. No pleural effusion. Hyperinflation is noted. Cardiomediastinal silhouette: The cardiac silhouette appears within normal limits. The thoracic aorta is tortuous in appearance. IMPRESSION: Hyperinflation. No focal consolidation or pulmonary edema is identified. Principal Embedded Software Engineer: JEREMIAH Transcribe Date/Time: Sep 30 2018 11:39P Dictated by : SARAH MARIANO MD This examination was interpreted and the report reviewed and electronically signed by: SARAH MARIANO MD on Sep 30 2018 11:40PM EST [id number] Normal [facility] Vital Signs Date Time Vital Sign Value Performing Clinician Facility 09-02-2024 03:57-0400 Body temperature 98.3 [degF] Dr. Newton Hemphill DO Work Phone: [facility] 09-02-2024 03:57-0400 Diastolic blood pressure 60 mm[Hg] Dr. Newton Hemphill DO Work Phone: [facility] 09-02-2024 03:57-0400 Heart rate 94 /min Dr. Newton Hemphill DO Work Phone: [facility] 09-02-2024 03:57-0400 Respiratory rate 18 /min Dr. Newton Hemphill DO Work Phone: [facility] 09-02-2024 03:57-0400 SaO2% (BldA) [Mass fraction] 95 % Dr. Newton Hemphill DO Work Phone: [facility] 09-02-2024 03:57-0400 Systolic blood pressure 95 mm[Hg] Dr. Newton Hemphill DO Work Phone: [facility] 09-02-2024 00:36-0400 Body height 175.[address] Newton Hemphill DO Work Phone: [facility] 09-02-2024 00:36-0400 Body mass index (BMI) [Ratio] 19.3 kg/m2 Dr. Newton Hemphill DO Work Phone: [facility] 09-02-2024 00:36-0400 Body weight 59.[address] Newton Hemphill DO Work Phone: [facility] 09-02-2024 00:36-0400 Inhaled oxygen flow rate 10 L/min Dr. Newton Hemphill DO Work Phone: [facility] 01-04-2023 14:39-0400 Diastolic Blood Pressure Non-Invasive 82 1 MANPREET PARRA APRN-ENVIRONMENTAL ASSOCIATE [facility] 01-04-2023 14:39-0400 Heart rate 77 /min MANPREET PARRA ELECTRIC METER READER-ENVIRONMENTAL ASSOCIATE [facility] 01-04-2023 14:39-0400 Reason For Taking VItal Signs MANPREET PARRA APRN-ENVIRONMENTAL ASSOCIATE [facility] 01-04-2023 14:39-0400 Respiratory rate 18 /min MANPREET PARRA APRN-ENVIRONMENTAL ASSOCIATE [facility] 01-04-2023 14:39-0400 Systolic Blood Pressure Non-Invasive 134 1 MANPREET PARRA APRN-ENVIRONMENTAL ASSOCIATE [facility] 01-04-2023 12:15-0400 Body temperature 97.88 [degF] MANPREET PARRA ELECTRIC METER READER-ENVIRONMENTAL ASSOCIATE [facility] 01-04-2023 12:15-0400 Diastolic Blood Pressure Non-Invasive 92 1 MANPREET PARRA APRN-ENVIRONMENTAL ASSOCIATE [facility] 01-04-2023 12:15-0400 Heart rate 72 /min MANPREET PARRA ELECTRIC METER READER-ENVIRONMENTAL ASSOCIATE [facility] 01-04-2023 12:15-0400 Reason For Taking VItal Signs MANPREET PARRA ELECTRIC METER READER-ENVIRONMENTAL ASSOCIATE [facility] 01-04-2023 12:15-0400 Respiratory rate 18 /min MANPREET PARRA ELECTRIC METER READER-ENVIRONMENTAL ASSOCIATE [facility] 01-04-2023 12:15-0400 Systolic Blood Pressure Non-Invasive 125 1 MANPREET PARRA ELECTRIC METER READER-ENVIRONMENTAL ASSOCIATE [facility] 01-04-2023 11:14-0400 Heart rate 91 /min MANPREET JIMENESSid ELECTRIC METER READER-ENVIRONMENTAL ASSOCIATE [facility] 01-04-2023 07:20-0400 Body temperature 98.24 [degF] MANPREET PARRA ELECTRIC METER READER-ENVIRONMENTAL ASSOCIATE [facility] 01-04-2023 07:20-0400 Diastolic Blood Pressure Non-Invasive 88 1 MANPREET PARRA ELECTRIC METER READER-ENVIRONMENTAL ASSOCIATE [facility] 01-04-2023 07:20-0400 Heart rate 81 /min MANPREET PARRA ELECTRIC METER READER-ENVIRONMENTAL ASSOCIATE [facility] 01-04-2023 07:20-0400 Reason For Taking VItal Signs MANPREET PARRA ELECTRIC METER READER-ENVIRONMENTAL ASSOCIATE [facility] 01-04-2023 07:20-0400 Respiratory rate 18 /min MANPREETLILIYA JIMENESN ELECTRIC METER READER-ENVIRONMENTAL ASSOCIATE [facility] 01-04-2023 07:20-0400 Systolic Blood Pressure Non-Invasive 131 1 MANPREET KENNEN ELECTRIC METER READER-ENVIRONMENTAL ASSOCIATE [facility] 01-04-2023 06:39-0400 Heart rate 90 /min MANPREETLILIYA SUNNEN ELECTRIC METER READER-ENVIRONMENTAL ASSOCIATE [facility] 01-04-2023 03:04-0400 Body temperature 97.88 [degF] MANPREETLILIYA SUNNEN ELECTRIC METER READER-ENVIRONMENTAL ASSOCIATE [facility] 01-04-2023 03:04-0400 Heart rate 75 /min MANPREETLILIYA SUNNEN ELECTRIC METER READER-ENVIRONMENTAL ASSOCIATE [facility] 01-03-2023 23:12-0400 Heart rate 80 /min MANPREETLILIYA SUNNEN ELECTRIC METER READER-ENVIRONMENTAL ASSOCIATE [facility] 01-03-2023 07:36-0400 Heart rate 71 /min MANPREETLILIYA SUNNEN ELECTRIC METER READER-ENVIRONMENTAL ASSOCIATE [facility] 01-02-2023 17:21-0400 Body height 175.3 cm MANPREETLILIYA SUNNEN ELECTRIC METER READER-ENVIRONMENTAL ASSOCIATE [facility] 01-02-2023 17:21-0400 Body weight 61.4 kg MANPREETLILIYA SUNNEN ELECTRIC METER READER-ENVIRONMENTAL ASSOCIATE [facility] 01-02-2023 17:21-0400 Body weight 19.98 kg/m2 MANPREETLILIYA SUNNEN ELECTRIC METER READER-ENVIRONMENTAL ASSOCIATE [facility] 01-02-2023 14:01-0400 Heart rate 99 /min MANPREETLILIYA SUNNEN ELECTRIC METER READER-ENVIRONMENTAL ASSOCIATE [facility] 01-02-2023 13:11-0400 Body height 175.3 cm MANPREETLILIYA SUNNEN ELECTRIC METER READER-ENVIRONMENTAL ASSOCIATE [facility] 01-02-2023 13:11-0400 Body weight 61.4 kg MANPREET KENNEN ELECTRIC METER READER-ENVIRONMENTAL ASSOCIATE [facility] 02-11-2022 11:26-0500 Heart rate 94 /min EDITH PAIGE MD [facility] 02-11-2022 11:26-0500 Respiratory rate 20 /min EDITH PAIGE MD [facility] 02-11-2022 11:13-0500 Diastolic Blood Pressure Non-Invasive 78 1 EDITH PAIGE MD [facility] 02-11-2022 11:13-0500 Heart rate 84 /min EDITH PAIGE MD [facility] 02-11-2022 11:13-0500 Systolic Blood Pressure Non-Invasive 121 1 EDITH PAIGE MD [facility] 02-11-2022 09:53-0500 Body temperature 98.6 [degF] EDITH PAIGE MD [facility] 02-11-2022 09:53-0500 Diastolic Blood Pressure Non-Invasive 80 1 EDITH PAIGE MD [facility] 02-11-2022 09:53-0500 Heart rate 99 /min EDITH PAIGE MD [facility] 02-11-2022 09:53-0500 Respiratory rate 18 /min EDITH PAIGE MD [facility] 02-11-2022 09:53-0500 Systolic Blood Pressure Non-Invasive 119 1 EDITH PAIGE MD [facility] 11-22-2021 07:08-0400 Body height 175.[address] LAZARA PALAFOX DO [facility] 11-22-2021 07:08-0400 Body temperature 97.52 [degF] DR LAZARA PALAFOX DO [facility] 11-22-2021 07:08-0400 Body weight 58.[address] LAZARA PALAFOX DO [facility] 11-22-2021 07:08-0400 Body weight 18.94 kg/m2 DR LAZARA PALFAOX DO [facility] 11-22-2021 07:08-0400 Diastolic blood pressure 99 mm[Hg] DR LAZARA PALAFOX DO [facility] 11-22-2021 07:08-0400 Heart rate 81 /min DR LAZARA PALAFOX DO [facility] 11-22-2021 07:08-0400 Mean blood pressure 126 mm[Hg] DR LAZARA PALAFOX DO [facility] 11-22-2021 07:08-0400 Respiratory rate 18 /min DR LAZARA PALAFOX DO [facility] 11-22-2021 07:08-0400 Systolic blood pressure 179 mm[Hg] DR LAZARA PALAFOX DO [facility] 06-15-2021 07:50-0400 Diastolic Blood Pressure NBP 100 1 JULIAN FERNÁNDEZ DO [facility] 06-15-2021 07:50-0400 Systolic Blood Pressure NBP 169 1 JULIAN FERNÁNDEZ DO [facility] 06-15-2021 07:42-0400 Diastolic Blood Pressure NBP 107 1 JULIAN FERNÁNDEZ DO [facility] 06-15-2021 07:42-0400 Heart rate 75 /min JULIAN FERNÁNDEZ DO [facility] 06-15-2021 07:42-0400 Respiratory rate 16 /min JULIAN FERNÁNDEZ DO [facility] 06-15-2021 07:42-0400 Systolic Blood Pressure NBP 167 1 JULIAN FERNÁNDEZ DO [facility] 06-15-2021 07:36-0400 Diastolic Blood Pressure NBP 105 1 JULIAN FERNÁNDEZ DO [facility] 06-15-2021 07:36-0400 Heart rate 74 /min JULIAN FERNÁNDEZ DO [facility] 06-15-2021 07:36-0400 Respiratory rate 20 /min JULIAN FERNÁNDEZ DO [facility] 06-15-2021 07:36-0400 Systolic Blood Pressure NBP 143 1 JULIAN FERNÁNDEZ DO [facility] 06-15-2021 07:31-0400 Heart rate 73 /min JULIAN FERNÁNDEZ DO [facility] 06-15-2021 07:31-0400 Respiratory rate 20 /min JULIAN FERNÁNDEZ DO [facility] 06-15-2021 06:40-0400 Body height 175.3 cm JULIAN FERNÁNDEZ DO [facility] 06-15-2021 06:40-0400 Body temperature 98.96 [degF] JULIAN FERNÁNDEZ DO [facility] 06-15-2021 06:40-0400 Body weight 63.6 kg JULIAN FERNÁNDEZ DO [facility] 06-15-2021 06:40-0400 Heart rate 97 /min JULIAN FERNÁNDEZ DO [facility] Encounters Encounter Date Encounter Type Care Provider Facility Start: 09-02-2024 End: 09-02-2024 Emergency department patient visit Dr. Newton Hemphill DO Work Phone: -Emergency Department Work Phone: Start: 01-02-2023 End: 01-04-2023 ambulatory JAUN OLSON DO Facility:B Start: 01-02-2023 End: 01-04-2023 Observation MANPREET PARRA ELECTRIC METER READER-ENVIRONMENTAL ASSOCIATE [facility] Start: 07-19-2022 End: 07-23-2022 ambulatory JAUN OLSON DO Facility:A Start: 07-19-2022 End: 07-23-2022 Encounter for general adult medical examination without abnormal findings JAUN OLSON DO Facility:A Start: 02-11-2022 End: 02-11-2022 Emergency department patient visit EDITH PAIGE MD Facility:B Start: 02-11-2022 End: 02-11-2022 Emergency department patient visit EDITH PAIGE MD [facility] Start: 11-22-2021 End: 11-22-[address] LAZARA PALAFOX DO [facility] Start: 06-15-2021 End: 06-15-2021 SAME DAY STAY JULIAN FERNÁNDEZ DO [facility] Start: 04-06-2021 End: 04-06-2021 Patient encounter procedure JASON EVERETT ELECTRIC METER READER-ENVIRONMENTAL ASSOCIATE [facility] Procedures Date Procedure Procedure Detail Performing Clinician Start: 09-02-2024 X-ray of chest, PA a nd lateral views Dr. Newton Hemphill DO Work Phone: Start: 09-02-[address] Newton Hemphill DO Work Phone: Arthroscopic knee operation JASON EVERETT ELECTRIC METER READER-ENVIRONMENTAL ASSOCIATE Entire shoulder milvia on (body structure) JASON EVERETT ELECTRIC METER READER-ENVIRONMENTAL ASSOCIATE History of hernia repair MICHAEL HUNTER EVERETT ELECTRIC METER READER-ENVIRONMENTAL ASSOCIATE Comment on above: with mesh History of operative procedure on shoulder JASON EVERETT ELECTRIC METER READER-ENVIRONMENTAL ASSOCIATE History of operative procedure on shoulder MANPREET JIMENESSid ELECTRIC METER READER-ENVIRONMENTAL ASSOCIATE Comment on above: right Inguinal hernia (disorder) R BOB EVERETT ELECTRIC METER READER-ENVIRONMENTAL ASSOCIATE Knee region structur e (body structure) JASON EVERETT ELECTRIC METER READER-ENVIRONMENTAL ASSOCIATE Knee region structur e (body structure) MANPREET PARRA ELECTRIC METER READER-ENVIRONMENTAL ASSOCIATE Comment on above: right Structure of eye pro per (body structure) MANPREET DINOFRANCISCO ELECTRIC METER READER-ENVIRONMENTAL ASSOCIATE Comment on above: stsches from metal r emoval from eye Plan of Treatment Date Care Activity Detail Author Start: 09-02-2024 [facility] Patient Education COPD: Wheezing and Chest Tightness COPD Controlled Breathing [facility] Work Phone: Payers Date Payer Category Payer Medicare [id number] 2024 Self-pay 2022 Unknown [id number] 2022 Unknown [id number] 2021 Unknown [id number] 1960 Unknown [id number] 1960 Unknown [id number] 1960 Unknown [id number] Unknown [id number] Unknown [id number] [id number] [id number] Social History Date Type Detail Facility Start: 05-12-2019 Heavy tobacco smoker (finding) [facility] Smokeless tobacc o user within last 30 days [facility] Sex Assigned At [facility] Start: 09-02-2024 [facility] Start: 1960 Sex Assigned At Male [facility] Functional Status Date Assessment Result Facility 01-04-2023 Functional Status 7am-3pm [facility] 01-04-2023 Functional Status Keisha [facility] 01-04-2023 Functional Status Ambulation in [place], Up with assistance [facility] 01-04-2023 Functional Status High Risk Safe ty Room check performed [facility] 01-04-2023 Functional Status Keisha [facility] 01-03-2023 [facility] 01-03-[facility]23 Functional Status Keisha [facility] 01-03-2023 Functional Status [facility] 01-03-2023 Functional Status Single level home [facility] 01-03-2023 Functional Status [facility] 01-02-2023 Functional Status Sensory Deficits None [facility] 02-11-2022 Functional Status Independent [facility] 02-11-2022 Functional Status Standard Safet y ID band on, Call device within reach, Bed in low position, Wheels locked, Upper/Half-Length side-rails up, Phone within reach, personal items within reach, Visitor at bedside [facility] 11-22-2021 Functional Status ID band on [facility] 06-15-2021 Functional Status [facility] 06-15-2021 Functional Status [facility] Mental Status Date Assessment Result Facility 01-04-2023 Mental Status Oriented x 4 [facility] 01-03-2023 Mental Status [facility] 01-03-2023 Mental Status [facility] 02-11-2022 Mental Status Orientation Oriented x 4 [facility] 02-11-2022 Mental Status [facility] 11-22-2021 Mental Status Orientation Oriented x 4 [facility] 06-15-2021 Mental Status [facility] 06-15-2021 Mental Status [facility] Clinical Notes 04-04-2021 to 09-02-2024 Note Date & Type Note Facility 09-02-2024 Radiology Diagnostic study note [facility] Imaging Services [address] [place] [address] Chest PA and Lateral MR#: [id number] Acct: [id number] Name: RAUDEL VEGA Rep #: [id number] : 1960 M 63 From: Kaye Cr MD PCP: Status: PRE ER Study:Chest PA and Lateral Date of Exam: 09/02/24 Exam# [id number] Ordering Dr: Renuka Hemphill DO PROCEDURE: CHEST PA AND LATERAL 09/02/2024 REASON FOR EXAM: DYSPNEA TECHNIQUE: CHEST PA AND LATERAL COMPARISON: No FINDINGS: Normal heart size. Hyperinflated lungs. No consolidation, effusion, or pneumothorax. RAD/Chest PA and Lateral IMPRESSION: Emphysema. No acute airspace process. Reading Location: [place] [address] CC: Newton Hemphill DO ~ Principal Embedded Software Engineer: Signed [facility] 01-07-2023 Note . MICRO - Microbiology PROCEDURE: Blood Culture (bacterial) [*1] SOURCE: Blood BODY SITE: COLLECTED DATE/TIME: 01/02/2023 15:10 EDT RECEIVED DATE/TIME: 01/02/2023 20:01 EDT START DATE/TIME: 01/02/2023 20:01 EDT FREE TEXT SOURCE: FINAL REPORTS Final Report [] Verified Date/Time/Personnel: 01/07/2023 20:59 EST Blood Culture: No Growth at 5 days. PRELIMINARY REPORTS Preliminary Report [] Verified Date/Time/Personnel: 01/02/2023 20:59 EDT Culture has been received in lab and is no growth to date. Routine cultures are held for 5 days. Performing Locations *1: This test was performed at: [facility], [address] [place] [address], [facility] , [facility] ([place]) 01-07-2023 Note . MICRO - Microbiology PROCEDURE: Blood Culture (bacterial) [*1] SOURCE: Blood BODY SITE: COLLECTED DATE/TIME: 01/02/2023 15:10 EDT RECEIVED DATE/TIME: 01/02/2023 20:01 EDT START DATE/TIME: 01/02/2023 20:01 EDT FREE TEXT SOURCE: FINAL REPORTS Final Report [] Verified Date/Time/Personnel: 01/07/2023 20:59 EST Blood Culture: No Growth at 5 days. PRELIMINARY REPORTS Preliminary Report [] Verified Date/Time/Personnel: 01/02/2023 20:59 EDT Culture has been received in lab and is no growth to date. Routine cultures are held for 5 days. Performing Locations *1: This test was performed at: [facility], [address] [place] [address], [id number] , [facility] ([place]) 01-04-2023 Hospital Discharge instructions Patient Education 01/04/2023 12:47:53 Chronic Obstructive Pulmonary Disease Exacerbation Chronic Obstructive Pulmonary Disease Exacerbation Chronic obstructive pulmonary disease (COPD) is a long-term (chronic) condition that affects the lungs. COPD is a general term that can be used to describe many different lung problems that cause lung swelling (inflammation) and limit airflow, including chronic bronchitis and emphysema. COPD exacerbations are episodes when breathing symptoms become much worse and require extra treatment. COPD exacerbations are usually caused by infections. Without treatment, COPD exacerbations can be severe and even life threatening. Frequent COPD exacerbations can cause further damage to the lungs. What are the causes? This condition may be caused by: Respiratory infections, including viral and bacterial infections. Exposure to smoke. Exposure to air pollution, chemical fumes, or dust. Things that give you an allergic reaction (allergens). Not taking your usual COPD medicines as directed. Underlying medical problems, such as congestive heart failure or infections not involving the lungs. In many cases, the cause (trigger) of this condition is not known. What increases the risk? The following factors may make you more likely to develop this condition: Smoking cigarettes. Old age. Frequent prior COPD exacerbations. What are the signs or symptoms? Symptoms of this condition include: Increased coughing. Increased production of mucus from your lungs (sputum). Increased wheezing. Increased shortness of breath. Rapid or labored breathing. Chest tightness. Less energy than usual. Sleep disruption from symptoms. Confusion or increased sleepiness. Often these symptoms happen or get worse even with the use of medicines. How is this diagnosed? This condition is diagnosed based on: Your medical history. A physical exam. You may also have tests, including: A chest X-ray. Blood tests. Lung (pulmonary) function tests. How is this treated? Treatment for this condition depends on the severity and cause of the symptoms. You may need to be admitted to a hospital for treatment. Some of the treatments commonly used to treat COPD exacerbations are: Antibiotic medicines. These may be used for severe exacerbations caused by a lung infection, such as pneumonia. Bronchodilators. These are inhaled medicines that expand the air passages and allow increased airflow. Steroid medicines. These act to reduce inflammation in the airways. They may be given with an inhaler, taken by mouth, or given through an IV tube inserted into one of your veins. Supplemental oxygen therapy. Airway clearing techniques, such as noninvasive ventilation (NIV) and positive expiratory pressure (PEP). These provide respiratory support through a mask or other noninvasive device. An example of this would be using a continuous positive airway pressure (CPAP) machine to improve delivery of oxygen into your lungs. Follow these instructions at home: Medicines Take [id number] and prescription medicines only as told by your health care provider. It is important to use correct technique with inhaled medicines. If you were prescribed an antibiotic medicine or oral steroid, take it as told by your health care provider. Do not stop taking the medicine even if you start to feel better. Lifestyle Eat a healthy diet. Exercise regularly. Get plenty of sleep. Avoid exposure to all substances that irritate the airway, especially to tobacco smoke. Wash your hands often with soap and water to reduce the risk of infection. If soap and water are not available, use hand wrister. During flu season, avoid enclosed spaces that are crowded with people. General instructions Drink enough fluid to keep your urine clear or pale yellow (unless you have a medical condition that requires fluid restriction). Use a cool mist vaporizer. This humidifies the air and makes it easier for you to clear your chest when you cough. If you have a home nebulizer and oxygen, continue to use them as told by your health care provider. Keep all follow-up visits as told by your health care provider. This is important. How is this prevented? Stay up-to-date on pneumococcal and influenza (flu) vaccines. A flu shot is recommended every year to help prevent exacerbations. Do not use any products that contain nicotine or tobacco, such as cigarettes and e-cigarettes. Quitting smoking is very important in preventing COPD from getting worse and in preventing exacerbations from happening as often. If you need help quitting, ask your health care provider. Follow all instructions for pulmonary rehabilitation after a recent exacerbation. This can help prevent future exacerbations. Work with your health care provider to develop and follow an action plan. This tells you what steps to take when you experience certain symptoms. Contact a health care provider if: You have a worsening of your regular COPD symptoms. Get help right away if: You have worsening shortness of breath, even when resting. You have trouble talking. You have severe chest pain. You cough up blood. You have a fever. You have weakness, vomit repeatedly, or faint. You feel confused. You are not able to sleep because of your symptoms. You have trouble doing daily activities. Summary COPD exacerbations are episodes when breathing symptoms become much worse and require extra treatment above your normal treatment. Exacerbations can be severe and even life threatening. Frequent COPD exacerbations can cause further damage to your lungs. COPD exacerbations are usually triggered by infections such as the flu, colds, and even pneumonia. Treatment for this condition depends on the severity and cause of the symptoms. You may need to be admitted to a hospital for treatment. Quitting smoking is very important to prevent COPD from getting worse and to prevent exacerbations from happening as often. This information is not intended to replace advice given to you by your health care provider. Make sure you discuss any questions you have with your health care provider. Document Released: 12/17/2007 Document Revised: 02/01/2018 Document Reviewed: 03/26/2017 [employer] Patient Education 2020 [employer]ge. Follow Up Care 01/02/2023 13:05:01 With:JAUN OLSON DO Address: [address] [place] [phone] When:3-5 days Comments:Please call to schedule your post-hospital follow-up appointment. [facility] 01-04-2023 Note Discharge Instructions Thank you for allowing [facility] to assist you with your healthcare needs. The following is important discharge information regarding your hospital visit. Your Care Team Anabell Chisholm [employer]IC [employer]ER READER Your Diagnosis Chronic obstructive pulmonary disease Cough Fever Generalized body aches Hypertension What to do next Instructions From Your Doctor You were admitted for a COPD exacerbation with questionable pneumonia. We checked atypical causes of pneumonia and those were negative. We checked chest x-ray which was unremarkable also. You were still on oxygen yesterday but had an ambulatory pulse ox today on room air that shows you do not qualify for home oxygen. We will discharge you home on Cefdinir 300 mg oral twice daily for three days to cover any infectious cause of your shortness of breath. Please finish all of this antibiotic. Follow-up with your PCP in the next week for post-hospitalization follow-up and to make sure that you continue to improve. Follow Up Appointments Follow Up with JAUN OLSON DO When Within 3-5 days Why: Please call to schedule your post-hospital follow-up appointment. Where: [address] [place] [phone] The Following Activity and Diet Have Been Ordered for You Discharge Activity - Ordered -- Resume your pre-hospitalization activity, 01/04/23 12:56:00 EDT Discharge Diet - Ordered -- No changes were made to your diet during your hospital stay. Please resume your pre hospitalization diet on discharge., 01/04/23 12:56:00 EDT The Following Treatments Have Been Ordered for You Discharge Labs No qualifying data available. Discharge Radiology No qualifying data available. Other Therapies No qualifying data available. Post Acute Orders No qualifying data available. Allergies NKA Medications Please ask your primary doctor or pharmacist before taking any other medication not listed, including over the counter drugs, herbal medications, vitamins and or supplements as they may interact with your home medications. What How Much When Why Instructions Last Dose New cefdinir (cefdinir 300 mg oral capsule) 1 cap by mouth Every 12 hours Duration: 3 Days Pickup at [facility] start tonight Unchanged acetaminophen (Tylenol 325 mg oral tablet) 2 tab(s) by mouth Every 4 hours as needed for Pain, scale 1-4 ( Mild ) none today Unchanged albuterol (albuterol MDI (90 mcg/ inh) CFC free inhalation aerosol) 2 puff(s) by inhalation Every 4 hours as needed for as needed for wheezing Acute exacerbation of COPD none today Unchanged albuterol (albuterol 2.5 mg/ 3 mL (0.083%) inhalation solution) 3 Milliliter Nebulized inhalation Every 6 hours COPD - Chronic obstructive pulmonary disease none today Unchanged ascorbic acid (Vitamin C 500 mg oral tablet) 1 tab(s) by mouth Once a day none today Unchanged aspirin (aspirin 81 mg oral delayed release tablet) 1 tab(s) by mouth Every day 11/2/23 at 0805am Unchanged cholecalciferol (Vitamin D3 25 mcg (1000 intl units) oral capsule) 1 cap by mouth Every day none today Unchanged DME (DME MISCellaneous) See instructions COPD - Chronic obstructive pulmonary disease hose and mouth piece for nebulizer Unchanged DME (DME MISCellaneous) See instructions COPD - Chronic obstructive pulmonary disease hose and mouth piece for nebulizer Unchanged fluticasone/ umeclidinium/ vilanterol (Trelegy Ellipta 100 mcg-62.5 mcg-25 mcg/ inh inhalation powder) 1 puff(s) by inhalation Once a day at the same time every day. Following administration, rinse mouth with water after use (do not swallow). 01/04/23 at 0638am Unchanged lisinopril (lisinopril 5 mg oral tablet) 1 tab(s) by mouth Once a day Hypertension none today Unchanged Misc Medication (Breatherite Mdi Spacer) use DIRECTED Unchanged multivitamin (Multivitamin) 1 tab(s) by mouth Every day none today Unchanged omega-3 polyunsaturated fatty acids ([place]-3 Fish Oil) 1,000 Milligram by mouth Once a day none today Unchanged pseudoephedrine (Sudafed) 1 tab by mouth Every 6 hours none today Unchanged traMADol (traMADol 50 mg oral tablet) 1 tab(s) by mouth Every 6 hours Back pain of lumbar region with sciatica Duration: 3 Days 01/04/23 at 0805am Unchanged zinc sulfate (Zinc) 1 tab by mouth Once a day none Pharmacy Information [facility]: [address] [place], [place] [phone] Please take this list to your next doctor s visit. Bring all medications you take, including over the counter medications, herbals and other supplements with you to your doctor s visit. Patients and families are reminded to discard old lists and to update any records with all medication providers or retail pharmacies. Education Materials Chronic Obstructive Pulmonary Disease Exacerbation Chronic obstructive pulmonary disease (COPD) is a long-term (chronic) condition that affects the lungs. COPD is a general term that can be used to describe many different lung problems that cause lung swelling (inflammation) and limit airflow, including chronic bronchitis and emphysema. COPD exacerbations are episodes when breathing symptoms become much worse and require extra treatment. COPD exacerbations are usually caused by infections. Without treatment, COPD exacerbations can be severe and even life threatening. Frequent COPD exacerbations can cause further damage to the lungs. What are the causes? This condition may be caused by: Respiratory infections, including viral and bacterial infections. Exposure to smoke. Exposure to air pollution, chemical fumes, or dust. Things that give you an allergic reaction (allergens). Not taking your usual COPD medicines as directed. Underlying medical problems, such as congestive heart failure or infections not involving the lungs. In many cases, the cause (trigger) of this condition is not known. What increases the risk? The following factors may make you more likely to develop this condition: Smoking cigarettes. Old age. Frequent prior COPD exacerbations. What are the signs or symptoms? Symptoms of this condition include: Increased coughing. Increased production of mucus from your lungs (sputum). Increased wheezing. Increased shortness of breath. Rapid or labored breathing. Chest tightness. Less energy than usual. Sleep disruption from symptoms. Confusion or increased sleepiness. Often these symptoms happen or get worse even with the use of medicines. How is this diagnosed? This condition is diagnosed based on: Your medical history. A physical exam. You may also have tests, including: A chest X-ray. Blood tests. Lung (pulmonary) function tests. How is this treated? Treatment for this condition depends on the severity and cause of the symptoms. You may need to be admitted to a hospital for treatment. Some of the treatments commonly used to treat COPD exacerbations are: Antibiotic medicines. These may be used for severe exacerbations caused by a lung infection, such as pneumonia. Bronchodilators. These are inhaled medicines that expand the air passages and allow increased airflow. Steroid medicines. These act to reduce inflammation in the airways. They may be given with an inhaler, taken by mouth, or given through an IV tube inserted into one of your veins. Supplemental oxygen therapy. Airway clearing techniques, such as noninvasive ventilation (NIV) and positive expiratory pressure (PEP). These provide respiratory support through a mask or other noninvasive device. An example of this would be using a continuous positive airway pressure (CPAP) machine to improve delivery of oxygen into your lungs. Follow these instructions at home: Medicines Take [id number] and prescription medicines only as told by your health care provider. It is important to use correct technique with inhaled medicines. If you were prescribed an antibiotic medicine or oral steroid, take it as told by your health care provider. Do not stop taking the medicine even if you start to feel better. Lifestyle Eat a healthy diet. Exercise regularly. Get plenty of sleep. Avoid exposure to all substances that irritate the airway, especially to tobacco smoke. Wash your hands often with soap and water to reduce the risk of infection. If soap and water are not available, use hand wrister. During flu season, avoid enclosed spaces that are crowded with people. General instructions Drink enough fluid to keep your urine clear or pale yellow (unless you have a medical condition that requires fluid restriction). Use a cool mist vaporizer. This humidifies the air and makes it easier for you to clear your chest when you cough. If you have a home nebulizer and oxygen, continue to use them as told by your health care provider. Keep all follow-up visits as told by your health care provider. This is important. How is this prevented? Stay up-to-date on pneumococcal and influenza (flu) vaccines. A flu shot is recommended every year to help prevent exacerbations. Do not use any products that contain nicotine or tobacco, such as cigarettes and e-cigarettes. Quitting smoking is very important in preventing COPD from getting worse and in preventing exacerbations from happening as often. If you need help quitting, ask your health care provider. Follow all instructions for pulmonary rehabilitation after a recent exacerbation. This can help prevent future exacerbations. Work with your health care provider to develop and follow an action plan. This tells you what steps to take when you experience certain symptoms. Contact a health care provider if: You have a worsening of your regular COPD symptoms. Get help right away if: You have worsening shortness of breath, even when resting. You have trouble talking. You have severe chest pain. You cough up blood. You have a fever. You have weakness, vomit repeatedly, or faint. You feel confused. You are not able to sleep because of your symptoms. You have trouble doing daily activities. Summary COPD exacerbations are episodes when breathing symptoms become much worse and require extra treatment above your normal treatment. Exacerbations can be severe and even life threatening. Frequent COPD exacerbations can cause further damage to your lungs. COPD exacerbations are usually triggered by infections such as the flu, colds, and even pneumonia. Treatment for this condition depends on the severity and cause of the symptoms. You may need to be admitted to a hospital for treatment. Quitting smoking is very important to prevent COPD from getting worse and to prevent exacerbations from happening as often. This information is not intended to replace advice given to you by your health care provider. Make sure you discuss any questions you have with your health care provider. Document Released: 12/17/2007 Document Revised: 02/01/2018 Document Reviewed: 03/26/2017 Elsevier Patient Education 2020 [employer] Additional Information VACCINATE! IT SAVES LIVES! Members of the community who have not yet received the COVID-19 vaccine and would like to receive it can visit one of [facility] vaccine clinics. There are many vaccine clinic locations within the [facility]. For locations and available times, please visit https://gettheshot.coronavirus.o hio.gov/. It is important to note that some COVID mobile vaccine clinics are held outdoors and may be canceled in rainy or stormy conditions. To learn more about pediatric vaccinations (ages 5-11), we invite you to visit the [employer] webpage. https://www.[employer].[email or web address]/p [email or web address]-Qhqhz-Juxhoqdlhmi-Freq dgobah-Nlblg-[email or web address].html To learn more about the COVID-19 vaccine, we invite you to visit the CDC website for a list of frequently asked questions.https://www.cdc.gov/co ronavirus/2019-ncov/vaccines/faq .html [facility] Patient Portal Access Instructions: Stay connected with your healthcare team and access your personal medical information anytime with the [employer] Patient Portal. Please follow the directions below to create your [facility] account: 1.Access the email account you provided upon registration to the hospital/physician office.2.Look for an invitation email from [facility].3.Open the email and access the invitation link: Accept Invitation to [facility].4.Fill in the required meeks to create your account. To access your account, visit [employer]. Click the blue button labeled Access Patient Portal and then log in with the username and password that you created in the steps above. You will be able to view your test results, lab results, a summary of your visits, upcoming appointments and more. There is also a convenient messaging option where you can send secure messages to your provider. In addition, you will have the ability to download any documents or summaries to your computer and/or send the information securely to a physician. Remember that your healthcare information is confidential, so carefully consider who you will allow to register on the [facility] for access to your information. You can also access the [facility] Patient [facility] on the [facility] parul. Simply click on Patient Portal and then log into your account. If you would like to receive a full copy of your medical records, please contact the [facility] Medical Records Department by calling [phone], Sunday through Sunday between 8 a.m. and 4:30 p.m. HOW TO SAFELY DISPOSE OF PRESCRIPTION MEDICATIONS Please use one of the following methods to safely dispose of your unused medications. 1.Use a drug disposal kit: the drug disposal pouch allows you to safely discard your old and unused drugs. Ask your nurse to give you one when you are discharged.2.Visit a local take-back location: Many local pharmacies and police departments have programs that collect old and unwanted prescription drugs. Call your local pharmacy or go to http://[employer]7G8Rb4m to find one close to you.3.Make use of household items: Use cat litter or old coffee grounds to dispose medications if other options are not available. Mix your drugs with these household products, seal them in an airtight container and throw it into the garbage. Call [facility]: [phone] to be sure your drugs can be disposed of in this way. Some medicines may require a different approach.4.Never flush your medications down the toilet. IF YOU HAVE BEEN PRESCRIBED AN OPIOID FOR PAIN If you have been prescribed an opioid (such as hydrocodone, oxycodone or morphine), it is critical to understand the possible side effects and risks of opioid pain medications. Even when taken as directed, opioids can have several side effects including: Tolerance, meaning you might need to take more of a medication for the same pain relief. Nausea, vomiting and/or constipation. Sleepiness, dizziness, dry mouth, confusion, depression or itching. Physical dependence, meaning you have withdrawal symptoms when a medication is stopped, can develop within a few days. KNOW YOUR RESPONSIBILITIES It is important to know exactly how much and how often to take the opioid pain medications you are prescribed. Never take opioids in higher amounts or more often than prescribed. Do not combine opioids with alcohol or other drugs that cause drowsiness, such as benzodiazepines, also known as benzos, including diazepam and alprazolam, muscle relaxants or sleep aids. Never sell or share prescription opioids. This is illegal. Store opioids in a secure place and out of reach of others (including children, family, friends and visitors). The last page of this document has been signed and retained as a CHART COPY. Signatures Patient Education Materials Chronic Obstructive Pulmonary Disease Exacerbation Medication Leaflets My discharge plan and instructions have been reviewed and explained to me and I,RAUDEL VEGA understand my current condition and have read and understand these discharge instructions. I have received a written copy of the plan/instructions. If I have questions, I am aware that I should contact my doctor. 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 patient returned to bed and continued on RA. SpO2 remains 93% while at rest. Digitally Signed by Shabana Leo RN on 01/04/2023 11:29 AM [facility] 01-03-2023 Note . MICRO - Microbiology PROCEDURE: Legionella Urine Ag [*1] SOURCE: Urine BODY SITE: COLLECTED DATE/TIME: 01/02/2023 18:18 EDT RECEIVED DATE/TIME: 01/03/2023 14:17 EDT START DATE/TIME: 01/03/2023 14:17 EDT FREE TEXT SOURCE: FINAL REPORTS Final Report [] Verified Date/Time/Personnel: 01/03/2023 14:40 EDT Presumptive negative for L. pneumophila serogroup 1 antigen in urine, suggesting no recent or current infection. Legionnaire's disease cannot be ruled out since other serogroups and species may also cause disease. Performing Locations *1: This test was performed at: [address], [facility]- , Counts include 234 beds at the [facility]) 01-03-2023 Note . MICRO - Microbiology PROCEDURE: Urine Culture [*1] SOURCE: Urine BODY SITE: COLLECTED DATE/TIME: 01/02/2023 13:35 EDT RECEIVED DATE/TIME: 01/02/2023 19:24 EDT START DATE/TIME: 01/02/2023 19:24 EDT FREE TEXT SOURCE: FINAL REPORTS Final Report [] Verified Date/Time/Personnel: 01/03/2023 14:11 EDT <10,000 cfu/ml. No Significant growth. Sensitivity not indicated. Performing Locations *1: This test was performed at: [facility], [address] [place] [address], [facility]- , [facility] ([place]) 01-03-2023 Evaluation + Plan note Extrac stacy from: Title:History and Physical Author:MANPREET PARRA APRN-HEATHER Date:01/03/23 1. Chronic obstructive pulmo nary disease 2. Hypertension 3. Fever COPD patient uses Trelegy at home. Inhaled bronchodilators continued here however patient has been refusing. Lungs are clear and very diminished. No wheezing. He does report increased sputum production and coughing. Checking for atypicals. Additionally respiratory panel has been collected for viral pathogens. Ceftriaxone and azithromycin. Attempt to wean patient to room air. Hypertension hold lisinopril as patient has been borderline hypotensive. Blood pressures are in the upper 90s and low 100s systolic. He denies any lightheadedness or dizziness. Fever patient had a low-grade temperature. Of 37.7 on admission as well as tachycardia and hypoxia. X-ray chest at that time showed no acute process. COPD. 2 view chest x-ray was obtained this morning and showed the same. Attempt to place patient on room air and ambulate on room air. Urinalysis was positive for nitrates. Otherwise unremarkable. He has no urinary symptoms. Will repeat clean-catch urinalysis. Culture is pending. Blood cultures show no growth to date. DVT prophylaxis: Lovenox Code Status: Full code Plan of care discussed with patient. All questions answered. Patient verbalizes understanding is agreeable to plan of care. This dictation was performed using voice recognition software and may include grammatical and/or spelling errors. [facility] 11-01-2023 Note Date of Service 01/03/2023 Chief Complaint c/o cough, body aches and chills since yesterday History of Present Illness 62-year-old male with past medical history significant for COPD, HTN, anxiety, osteoarthritis, sciatica, tobacco use. Patient presented to [facility] emergency department on 01/02/2023 with 1 day history of fever, cough, body aches. In the emergency department patient had a low-grade temperature of 37.7, tachycardic at 109, blood pressure 98/64 with oxygen saturation 89% on room air. He is placed on 2 L nasal cannula with improvement in oxygenation. White blood cell count 20,800. No bandemia. Sodium level 134. Lactic acid 0.9. Troponin 6.3. X-ray chest showed no acute process. Urinalysis was positive fornitrates otherwise unremarkable. He received ceftriaxone, azithromycin. 2 L of normal saline. He was subsequently admitted for further evaluation. Overnight patient has remained afebrile and hemodynamically stable. He was on 2 L nasal cannula overnight. He was able to be weaned to 1 L. Does have a history of COPD. Patient states that he had quite a bit of coughing and sputum production over the weekend. He has been refusing inhaled bronchodilators. Review of Systems See HPI for specific ROS. All other systems reviewed and negative. Physical Exam Vitals and Measurements T: 36.4 C (Oral) TMIN: 36.4 C (Oral) TMAX: 37.7 C (Oral) HR: 73(Monitored) RR: 20 BP: 96/62 SpO2: 96% HT: 175.3 cm WT: 61.5 kg BMI: 19.98 Weight Current Weight Dosing Weight: 61.4 kg (01/02/23) Current Weight: 61.5 kg (01/03/23) Dosing Weight: 61.4 kg (01/02/23) GEN: Appears chronically ill EYES: No conjunctival erythema, drainage. EOMI EARS: Hearing grossly intact. NOSE: No nasal discharge. THROAT: Oral cavity and pharynx pink and moist. CHEST: Normal S1 and S2. Rhythm is regular. Clear and diminished ABD: Positive bowel sounds x 4 quads. Soft, nondistended, nontender. EXT: No significant deformity or joint abnormality. No edema. Peripheral pulses intact. NEURO: Sensation grossly intact SKIN: Skin color normal PSYCH: The mental examination revealed the patient was alert and oriented x 4 Lab Results 01/03 05:15 WBC: 13.3 H Hgb: 12.1 L Hct: 35.6 L Platelet: 175 Neutrophil %: 77.4 Glucose Level: 98 Sodium Level: 140 Potassium Level: 4.1 BUN: 14 Creatinine Lvl (s): 0.75 01/02 13:35 WBC: 20.8 H Hgb: 13.7 L Hct: 40.3 L Platelet: 179 Neutrophil %: 83.5 H Glucose Level: 127 H Sodium Level: 134 L Potassium Level: 3.9 BUN: 14 Creatinine Lvl (s): 0.94 Imaging Results and Diagnostics XR Chest 2 Views Result Date: January 03, 2023 Verified By: EZEQUIEL BURTON MD CLINICAL STATEMENT: IMPRESSION: No acute cardio pulmonary process. COPD. . XR Chest 1 View Result Date: January 02, 2023 Verified By: EZEQUIEL BURTON MD CLINICAL STATEMENT: IMPRESSION: No acute cardio pulmonary process. COPD. . CT Abd/Pelvis w/ IV Contrast Only Result Date: January 02, 2023 Verified By: SALINA YU MD CLINICAL STATEMENT: IMPRESSION: 1. Prostatomegaly.2. No evidence of hydronephrosis. No acute gastrointestinal abnormality.I have personally reviewed the images of this examination and agree with theresident's findings and interpretation. Assessment/Plan 1. Chronic obstructive pulmonary disease 2. Hypertension 3. Fever COPD patient uses Trelegy at home. Inhaled bronchodilators continued here however patient has been refusing. Lungs are clear and very diminished. No wheezing. He does report increased sputum production and coughing. Checking for atypicals. Additionally respiratory panel has been collected for viralpathogens. Ceftriaxone and azithromycin. Attempt to wean patient to room air. Hypertension hold lisinopril as patient has been borderline hypotensive. Blood pressures are in theupper 90s and low 100s systolic. He denies any lightheadedness or dizziness. Fever patient had a low-grade temperature. Of 37.7 on admission as well as tachycardia and hypoxia.X-ray chest at that time showed no acute process. COPD. 2 view chest x-ray was obtained this morning and showed the same. Attempt to place patient on room air and ambulate on room air. Urinalysis waspositive for nitrates. Otherwise unremarkable. He has no urinary symptoms. Will repeat clean- catch urinalysis. Culture is pending. Blood cultures show no growth to date. DVT prophylaxis: Lovenox Code Status: Full code Plan of care discussed with patient. All questions answered. Patient verbalizes understanding is agreeable to plan of care. This dictation was performed using voice recognition software and may include grammatical and/or spelling errors. Problem List/Past Medical History Ongoing Back pain of lumbar region with sciatica Bloody stools COPD - Chronic obstructive pulmonary disease Generalized anxiety disorder Hypertension Impacted cerumen of left ear Left shoulder pain Need for hepatitis C screening test Pain, dental Prostate cancer screening Right hip pain Right inguinal hernia Right inguinal pain Screening for hyperlipidemia Well adult exam Historical Inguinal hernia Procedure/Surgical History Eye History of hernia repair History of shoulder surgery Knee Medications Home Medications (16) Active albuterol MDI (90 mcg/inh) CFC free inhalation aerosol 2 puff(s), PRN, Inhalation, q4h albuterol 2.5 mg/3 mL (0.083%) inhalation solution 2.5 mg = 3 mL, Nebulized, q6hr aspirin 81 mg oral delayed release tablet 81 mg = 1 tab(s), Oral, Daily Breatherite Mdi Spacer DME MISCellaneous See Instructions DME MISCellaneous See Instructions lisinopril 5 mg oral tablet 5 mg = 1 tab(s), Oral, qDay Multivitamin 1 tab(s), Oral, Daily [place]-3 Fish Oil 1,000 mg, Oral, qDay Sudafed 1 tab, Oral, q6hr traMADol 50 mg oral tablet 50 mg = 1 tab(s), Oral, q6hr Trelegy Ellipta 100 mcg-62.5 mcg-25 mcg/inh inhalation powder 1 puff(s), Inhalation, qDay Tylenol 325 mg oral tablet 650 mg = 2 tab(s), PRN, Oral, q4h Vitamin C 500 mg oral tablet 500 mg = 1 tab(s), Oral, qDay Vitamin D3 25 mcg (1000 intl units) oral capsule 25 mcg = 1 cap(s), Oral, Daily Zinc 1 tab, Oral, qDay Allergies NKA Social History Smoking Status - 02/21/2015 Current every day smoker Alcohol - Denies Alcohol Use, 05/12/2019 Use: Current. Type: Beer. Frequency: 1-2 times per month., 01/02/2023 Employment/School Status: Employed., 10/24/2018 Home/Environment Living situation: Home with assistance. Current Home Treatments Nebulizer treatments, pulse ox., 01/02/2023 Domestic Concerns: None., 06/15/2021 Nutrition/Health Type of diet: Regular. Appetite Good. Eating Difficulties None. Enteral Feedings No. TPN Feedings No. Skin Breakdown No., 01/02/2023 Caffeine intake amount: moderate., 05/16/2019 Caffeine intake amount: heavy., 10/24/2018 Substance Abuse - Denies Substance Abuse, 05/12/2019 Use: Current. Type: Marijuana. Frequency: 1-2 times per week., 01/02/2023 Use: Never., 04/14/2021 Tobacco - High Risk, 05/12/2019 Nicotine Use: 10 or more cigarettes (1/2 pack or more)/day in last 30 days. Type: Cigarettes. Previous treatment: None. Ready to change: No. Smokeless Tobacco Use: Smokeless tobacco user within last 30 days., 05/12/2019 Tobacco Use: 10 or more cigarettes (1/2 pack or more)/day in last 30 days., 10/24/2018 Family History Cancer: Mother. Heart disease: Father. Code Status Code Status - Ordered -- 01/02/23 16:50:00 EDT, Full Code, Constant Order Digitally Signed by MANPREET PARRA on 01/03/2023 12:42 PM [facility]11-01-2023 Note ORIGINAL EXAMINATION: TWO XRAY VIEWS OF THE CHEST01/03/2023 9:37 am XR Chest, two views COMPARISON: 01/02/2023 HISTORY: ORDERING SYSTEM PROVIDED HISTORY: Reason for Exam: Shortness of breath, FINDINGS: The lungs show no suspicious nodule, infiltrate, consolidation or mass. Heart size is normal and mediastinal contours are within normal limits for age and projection. No pneumothorax, pleural fluid, or vascular congestion is seen. The bones show no acute process. Other findings include: Lungs are hyperexpanded. There are coarsened interstitial lung markings throughout the lungs as previously which are chronic findings. IMPRESSION: No acute cardio pulmonary process. COPD. . Interpreted by: Ezequiel Burton MD Preliminary Report By: Ezequiel Burton MD Electronically signed By Ezequiel Burton MD Dictated Date: 01/03/2023 10:57:37 AM Prelim Date: 01/03/2023 10:58:13 AM Sign Date: 01/03/2023 10:58:13 AM Ordering Provider: [facility], [place], operated by [facility]10-31-2023 HCoV 229E RNA GALEN+non-probe Ql (Nph)Not Detected *NA* (01/02/23 6:18 PM)AH Auto Viro/Sero [id number] Note ORIGINAL EXAMINATION: ONE XRAY VIEW OF THE CHEST01/02/2023 3:05 pm XR Chest, portable upright COMPARISON: 02/11/2022 HISTORY: ORDERING SYSTEM PROVIDED HISTORY: Reason for Exam: Cough, SOB, hx of COPD; fever, FINDINGS: The lungs show no suspicious nodule, infiltrate, consolidation or mass. Heart size is normal and mediastinal contours are within normal limits for age and projection. No pneumothorax, pleural fluid, or vascular congestion is seen. The bones show no acute process. Other findings include: Lungs are hyperexpanded. Coarse interstitial lung markings bilaterally are chronic findings. IMPRESSION: No acute cardio pulmonary process. COPD. . Interpreted by: Ezequiel Burton MD Preliminary Report By: Ezequiel Burton MD Electronically signed By Ezequiel Burton MD Dictated Date: 01/02/2023 3:42:04 PM Prelim Date: 01/02/2023 3:42:39 PM Sign Date: 01/02/2023 3:42:39 PM Ordering Provider: [facility]10-31-2023 Note ORIGINAL EXAMINATION: CT OF THE ABDOMEN AND PELVIS WITH CONTRAST 01/02/2023 3:06 pm TECHNIQUE: CT of the abdomen and pelvis was performed with the administration of intravenous contrast. Multiplanar reformatted images are provided for review. Automated exposure control, iterative reconstruction, and/or weight based adjustment of the mA/kV was utilized to reduce the radiation dose to as low as reasonably achievable. COMPARISON: None. HISTORY: ORDERING SYSTEM PROVIDED HISTORY: Reason for Exam: low urine output x3 days FINDINGS: Moderate to severe emphysematous changes are seen of the lungs bilaterally. Areas of bronchiectasis and mucous plugging are seen worse of the left lower lobe. There is no pleural or pericardial effusion. Moderate degenerative changes in lumbosacral spine. Small hypodense lesion measuring 5 mm in left lobe of liver, too small to characterize but statistically a simple cyst. Rest of the liver appears unremarkable. Gallbladder shows no evidence of hyperdense calculi. Bilateral adrenal glands, pancreas, spleen are unremarkable. Bilateral kidneys are normal in morphology and enhancement pattern. No hydronephrosis seen. Bilateral ureters are nondilated. Urinary bladder partially distended, unremarkable. Prostate enlarged measuring 5 x 6 x 4.7 cm. No evidence of bowel dilatation seen. The appendix is normal. No acute gastrointestinal abnormality. No intraperitoneal free air or fluid seen. Mild to moderate atherosclerotic changes in aorta and iliac vessels. No aortic aneurysm. IVC appears unremarkable. IMPRESSION: 1. Prostatomegaly. 2. No evidence of hydronephrosis. No acute gastrointestinal abnormality. I have personally reviewed the images of this examination and agree with the resident's findings and interpretation. Interpreted by: Salina Yu MD Preliminary Report By: Narayan Reyes Electronically signed By Salina Yu MD Dictated Date: 01/02/2023 3:28:17 PM Prelim Date: 01/02/2023 4:08:49 PM Sign Date: 01/02/2023 4:08:49 PM Ordering Provider: [facility]10-31-2023 Note Sinus rhythm Borderline short SD interval Right axis deviation Abnormal R-wave progression, late transition Electronic Signature: EDITH PAIGE MD 01/02/2023 14:05:29[facility] 10-31-2023 SARS-CoV-2 (COVID-19) RNA GALEN+probe Ql (Nph) Negative *NA* (01/02/23 1:35 PM)AO Auto Urine [id number] Hospital Discharge instructions Patient Education 02/11/2022 12:41:22 COPD Flare COPD Flare You have had a flare-up of your COPD. COPD (chronic obstructive pulmonary disease) is a common lung disease. It causes your airways to get irritated and narrower. This makes it harder for you to breathe. Emphysema and chronic bronchitis are both types of COPD. This is a long-term (chronic) condition. This means you always have it. Sometimes it gets worse. When this happens, it is called a flare-up. Symptoms of COPD People with COPD may have symptoms most of the time. In a flare-up, your symptoms get worse. These symptoms may mean you are having a flare-up: Shortness of breath, shallow or rapid breathing, or wheezing that gets worse Lung infection Cough that gets worse More mucus, thicker mucus or mucus of a different color Tiredness, less energy, or trouble doing your normal activities Fever Chest tightness Your symptoms don t get better even when you use your normal medicines, inhalers, and nebulizer Trouble talking You feel confused Causes of flare-ups Unfortunately, a flare-up can happen even if you did everything right. And even if you followed your healthcare provider s instructions. Some causes of flare- ups are: Smoking or secondhand smoke Colds, the flu, or respiratory infections Air pollution Sudden change in the weather Dust, irritating chemicals, or strong fumes Not taking your medicines as prescribed Home care Here are some things you can do at home to treat a flare-up: Try not to panic. This makes it harder to breathe, and keeps you from doing the right things. Don t smoke or be around others who are smoking. Try to drink more fluids than normal during a flare-up, unless your healthcare provider has told you not to because of heart and kidney problems. More fluids can help loosen the mucus. Use your inhalers and nebulizer, if you have one, as you have been told to. If you were given antibiotics, take them until they are used up or your provider tells you to stop.It s important to finish the antibiotics, even though you feel better. This will make sure the infection has cleared. If you were given prednisone or another steroid, finish it even if you feel better. Preventing a flare-up Flare-ups happen. But the best way to treat one is to prevent it before it starts. Here are some pointers: Don t smoke or be around others who are smoking. Take your medicines as discussed with your healthcare provider. Talk with your provider about getting a flu shot every year. Also find out if you need a pneumonia shot. If there is a weather advisory warning to stay indoors, try to stay inside when possible. Try to eat healthy, exercise, and get plenty of sleep. Try to stay away from things that normally set you off. These include dust, chemical fumes, hairsprays, or strong perfumes. Follow-up care Follow up with your healthcare provider, or as advised. If a culture was done, you will be told if your treatment needs to be changed. You can call as directed for the results. If X-rays were done, you will be told of any new findings that may affect your care. Call 911 Call 911 if any of these occur: You have trouble breathing You feel confused or it s hard to wake you up You faint or lose consciousness You have a rapid heart rate You have new pain in your chest, arm, shoulder, neck, or upper back When to seek medical advice Call your healthcare provider right away if any of these occur: Wheezing or shortness of breath gets worse You need to use your inhalers more often than normal without relief Fever of 100.4 F (38 C) or higher, or as directed by your healthcare provider Coughing up lots of dark-colored or bloody mucus (sputum) Chest pain with each breath You don't start to get better within 24 hours Swelling of your ankles gets worse Dizziness or weakness [id number] [employer]. [address] [place] [address]. All rights reserved. This information is not intended as a substitute for professional medical care. Always follow yourhealthcare professional's instructions. 02/11/2022 12:41:06 RSV (Respiratory Syncytial Virus) RSV (Respiratory Syncytial Virus) Infection RSV (respiratory syncytial virus) is a common cause of respiratory infections in people of all ages. The infection occurs more often in the winter and early spring. RSV is so common that almost all children have had the virus by age 2. Older adults and people who have weakened immune systems can get another infection later in life as their initial immunity to RSV decreases. RSV symptoms are usually mild. But it can be a serious problem in high-risk infants, young children, and older adults. These groups may have more serious infections and trouble breathing. How RSV spreads RSV spreads easily when people with the infection cough or sneeze. It also spreads by direct contact with an infected person. For example, by kissing a child with the virus. And, the virus can live on hard surfaces. A person can get the infection by touching something with the virus on it. For example, crib rails or door knobs. It spreads quickly in group settings, such as daycare and schools. Symptoms of RSV Most babies and children with an RSV infection have the same symptoms they might have with a cold or flu. These include a stuffy or runny nose, a cough, headache, and a low-grade fever. Older adults may get pneumonia. Treating RSV There is no specific treatment for RSV in most cases. Antibiotics are not used unless a bacterial infection is present. Try the following to relieve some of your child's symptoms: Ask your child s healthcare provider or nurse about lowering your child's fever. You should know what medicine to use and how much and how often to use it. Make sure your child isn't wearing too muchclothing. If your child is old enough, give him or her fluids, such as water and juice. Remove mucus from your s nose with a rubber bulb suction device. Be gentle to avoid causing more swelling and discomfort. Ask your child s provider or nurse for instructions. Don t let anyone smoke around your child. Infants and children with severe symptoms are hospitalized. They are watched closely and may receive the following treatment: IV (intravenous) fluids Oxygen Suctioning of mucus Breathing treatments Anti-inflammatory medicine such as steroids Children with very serious breathing problems have a breathing tube inserted (intubation). This is attached to a machine (ventilator) that helps them breathe. Call your child's provider right away if your child has any of the following: Fever, as directed by your child's provider, or: oIn an infant younger than 12 weeks old, a fever of 100.4 F (38.0 C) or higher oIn a child younger than 2 years old, a fever that lasts more than 24 hours oIn a child age 2 or older, a fever that lasts more than 3 days oIn a child of any age, repeated fevers of 104 F (40.0 C) or higher oA seizure with a high fever A cough Wheezing, breathing faster than usual, or trouble breathing Flaring of the nostrils or straining of the chest or stomach while breathing Skin around the mouth or fingers turning bluish Restlessness or irritability, unable to be soothed Trouble eating, drinking, or swallowing Shortness of breath Needing to sit upright (in bed or in a chair) to catch his or her breath Preventing RSV infection To help prevent the infection: Clean your hands before and after holding or touching your child. Alcohol-based hand reheater helper are recommended. Or wash your hands with warm water and soap for at least 15 to 30 seconds. Clean all surfaces with disinfectant reheater helper or wipes. Teach your child to keep his or her hands clean. Have your child wash his or her hands often or usealcohol-based hand night cleaner. Teach them wash their hands for as long as it takes to sing the alphabet song or the Happy Birthday song. Have other family members or caregivers clean their hands before holding or touching your child. Closely watch your own health and that of family members and your child s playmates. Try to preventcontact between your child and those with a cold or fever. Don t smoke around your child. Ask your child's healthcare provider if your child is at risk for RSV. If your child is at risk, heor she may get shots (injections) during RSV season to help prevent the illness. [id number] [employer]. [address] [place] [address]. All rights reserved. This information is not intended as a substitute for professional medical care. Always follow yourhealthcare professional's instructions. Follow Up Care 02/11/2022 09:47:04 With:JAUN OLSON DO Address: [address] [place] [address] [place] [address] [phone] When:2-4 days With:Go to emergency room if symptoms worsen Address:Unknown When:2-4 days [facility] 12-10-2022 Emergency department Discharge summary Discharge Instructions Thank you for allowing [facility] to assist you with your healthcare needs. The following is importantdischarge information regarding your hospital visit. Diagnosis from Today's Visit RSV - Respiratory syncytial virus infection SOB - Shortness of breath What to Do Next Instructions from Your Care Team No qualifying data available. Post Acute Orders No qualifying data available. You Need to Schedule the Following Appointments Follow Up with JAUN OLSON DO When Within 2-4 days Where: [address] [place] [phone] Follow Up with Go to emergency room if symptoms worsen When Within 2-4 days Allergies NKA Medications Please ask your primary doctor or pharmacist before taking any other medication not listed, including over the counter drugs, herbal medications, vitamins and or supplements as they may interact withyour home medications. What How Much When Why Instructions Last Dose New predniSONE (predniSONE 20 mg oral tablet) See instructions RSV - Respiratory syncytial virus infection 3 p.o. day 1 and 2, 2 p.o. day 3 and 4, 1 p.o. day 5 and 6 Printed Prescription Unchanged acetaminophen (Tylenol 325 mg oral tablet) 2 tab(s) by mouth Every 4 hours as needed for Pain, scale 1-4 ( Mild ) Unchanged albuterol (albuterol MDI (90 mcg/ inh) CFC free inhalation aerosol) 2 puff(s) by inhalation Every 4 hours as needed for as needed for wheezing Acute exacerbation of COPD Duration: 30 Days Unchanged albuterol (albuterol 2.5 mg/ 3 mL (0.083%) inhalation solution) 3 Milliliter Nebulized inhalation Every 6 hours COPD - Chronic obstructive pulmonary disease Duration: 30 Days Unchanged ascorbic acid (Vitamin C 500 mg oral tablet) 1 tab(s) by mouth Once a day Unchanged cholecalciferol (Vitamin D3 25 mcg (1000 intl units) oral capsule) 1 cap by mouth Every day Unchanged DME (DME MISCellaneous) See instructions COPD - Chronic obstructive pulmonary disease hose and mouth piece for nebulizer Unchanged DME (DME MISCellaneous) See instructions COPD - Chronic obstructive pulmonary disease hose and mouth piece for nebulizer Unchanged fluticasone/ umeclidinium/ vilanterol (Trelegy Ellipta 100 mcg-62.5 mcg-25 mcg/ inh inhalation powder) 1 puff(s) by inhalation Once a day Duration: 30 Days at the same time every day. Following administration, rinse mouth with water after use (do not swallow). Unchanged lisinopril (lisinopril 5 mg oral tablet) 1 tab(s) by mouth Once a day Hypertension Unchanged Misc Medication (Breatherite Mdi Spacer) use DIRECTED Unchanged multivitamin (Multivitamin) 1 tab(s) by mouth Every day Unchanged omega-3 polyunsaturated fatty acids ([place]-3 Fish Oil) 1,000 Milligram by mouth Once a day Unchanged pseudoephedrine (Sudafed) 1 tab by mouth Every 6 hours Unchanged traMADol (traMADol 50 mg oral tablet) 1 tab(s) by mouth Every 12 hours as needed for for pain Unchanged zinc sulfate (Zinc) 1 tab by mouth Once a day Please take this list to your next doctor s visit. Bring all medications you take, including over the counter medications, herbals and other supplements with you to your doctor s visit. Patients and families are reminded to discard old lists and to update any records with all medication providers or retail pharmacies. Medication Leaflets prednisone (PRED brain sonsamm) [place] What is the most important information I should know about prednisone? You should not use prednisone if you have a fungal infection anywhere in your body. You should not stop using prednisone suddenly. Follow your doctor's instructions about tapering your dose. What is prednisone? Prednisone is a steroid that reduces inflammation in the body, and also suppresses your immune system. Prednisone is used to treat many different conditions such as hormonal disorders, skin diseases, arthritis, lupus, psoriasis, allergic conditions, ulcerative colitis, Crohn's disease, eye diseases, lung diseases, asthma, tuberculosis, blood cell disorders, kidney disorders, leukemia, lymphoma, multi ple sclerosis, organ transplant rejection, swelling from a brain tumor or injury. Prednisone may also be used for purposes not listed in this medication guide. What should I discuss with my healthcare provider before taking prednisone? You should not use prednisone if you are allergic to it, or if you have a fungal infection anywherein your body. Steroid medication can weaken your immune system, making it easier for you to get an infection or worsening an infection you already have. Tell your doctor about any illness or infection you've had within the past several weeks. Tell your doctor if you have ever had: heart problems, high blood pressure, or a heart attack; glaucoma or cataracts; herpes infection of the eyes; past or present tuberculosis; a parasite infection that causes diarrhea (such as threadworms); any illness that causes diarrhea; underactive thyroid; diabetes; a stomach ulcer, diverticulitis; a colostomy or ileostomy; osteoporosis or low bone mineral density (steroid medication can increase your risk of bone loss); low levels of calcium or potassium in your blood; cirrhosis or other liver disease; mental illness or psychosis; or a muscle disorder such as myasthenia gravis. Long-term use of steroids may lead to bone loss (osteoporosis), especially if you smoke or drink alcohol, if you do not exercise, or if you do not get enough vitamin D or calcium in your diet. It is not known whether this medicine will harm an unborn baby. Tell your doctor if you are or plan to become . You should not breastfeed while using prednisone. How should I take prednisone? Follow all directions on your prescription label and read all medication guides or instruction sheets. Your doctor may occasionally change your dose. Use the medicine exactly as directed. Prednisone is taken daily or every other day, depending on the condition being treated. You may need to take the medicine at a certain time of day. Follow your doctor's instructions about when and how often to take this medicine. Take with food if prednisone upsets your stomach. Measure liquid medicine carefully. Use the dosing syringe provided, or use a medicine dose-measuring device (not a kitchen spoon). Swallow the delayed-release tablet whole and do not crush, chew, or break it. Prednisone can weaken (suppress) your immune system, and you may get an infection more easily. Callyour doctor if you have signs of infection (fever, weakness, cold or flu symptoms, skin sores, diarrhea, frequent or recurring illness). If you have major surgery or a severe injury or infection, your prednisone dose needs may change. Make sure any doctor caring for you knows you are using this medicine. If you use this medicine long-term, you may need medical tests and vision exams. In case of emergency, wear or carry medical identification to let others know you use a steroid. You should not stop using prednisone suddenly. Follow your doctor's instructions about tapering your dose. Store at room temperature away from moisture, heat, and light. What happens if I miss a dose? Take the medicine as soon as you can, but skip the missed dose if it is almost time for your next dose. Do not take two doses at one time. What happens if I overdose? Seek emergency medical attention or call the Poison Help line at . High doses or long-term use of prednisone can lead to thinning skin, easy bruising, changes in bodyfat (especially in your face, neck, back, and waist), increased acne or facial hair, menstrual problems, impotence, or loss of interest in sex. What should I avoid while taking prednisone? Do not receive a 'live' vaccine while using prednisone. The vaccine may not work as well and may not fully protect you from disease. Live vaccines include measles, mumps, rubella (MMR), polio, rotavirus, typhoid, yellow fever, varicella (chickenpox), zoster (shingles), and nasal flu (influenza) vaccine. Avoid being near people who are sick or have infections. Call your doctor for preventive treatment if you are exposed to chickenpox or measles. These conditions can be serious or even fatal in peoplewho are using steroid medicine. Avoid drinking alcohol. What are the possible side effects of prednisone? Get emergency medical help if you have signs of an allergic reaction: hives; difficult breathing; swelling of your face, lips, tongue, or throat. Call your doctor at once if you have: muscle pain or weakness; blurred vision, tunnel vision, eye pain, or seeing halos around lights; severe depression, changes in personality, unusual thoughts or behavior; bloody or tarry stools, coughing up blood or vomit that looks like coffee grounds; swelling, rapid weight gain, feeling short of breath; irregular heartbeats; severe headache, pounding in your neck or ears; decreased adrenal gland hormones--muscle weakness, tiredness, diarrhea, nausea, menstrual changes, skin discoloration, craving salty foods, and feeling light- headed; or low potassium level--leg cramps, constipation, irregular heartbeats, fluttering in your chest, increased thirst or urination, numbness or tingling, muscle weakness or limp feeling. Prednisone can affect growth in children. Tell your doctor if your child is not growing at a normalrate while using this medicine. Common side effects may include: weight gain (especially in your face or your upper back and torso); increased appetite; mood changes, trouble sleeping; changes in your menstrual periods; problems with memory or thought; muscle or joint pain; weakness; headache, dizziness, spinning sensation; nausea, bloating, loss of appetite; slow wound healing; or acne, increased sweating, thinning skin, bruising, pinpoint spots under your skin. This is not a complete list of side effects and others may occur. Call your doctor for medical advice about side effects. You may report side effects to FDA at 1-732-CQH-8377. What other drugs will affect prednisone? Sometimes it is not safe to use certain medications at the same time. Some drugs can affect your blood levels of other drugs you take, which may increase side effects or make the medications less effective. Tell your doctor about all your current medicines. Many drugs can affect prednisone, especially: bupropion; cyclosporine; digoxin; ketoconazole; an antibiotic; control pills or hormone replacement therapy; a diuretic or 'water pill'; insulin or oral diabetes medicine; a blood thinner--warfarin, Coumadin, Jantoven; or NSAIDs (nonsteroidal anti-inflammatory drugs)--aspirin, ibuprofen (Advil, Motrin), naproxen (Aleve), celecoxib, diclofenac, indomethacin, meloxicam, and others. This list is not complete and many other drugs may affect prednisone. This includes prescription and ypko-yxd-hvlbglp medicines, vitamins, and herbal products. Not all possible drug interactions are listed here. Where can I get more information? Your pharmacist can provide more information about prednisone. Remember, keep this and all other medicines out of the reach of children, never share your medicines with others, and use this medication only for the indication prescribed. Every effort has been made to ensure that the information provided by [employer]. ('[employer]') is accurate, up-to-date, and complete, but no guarantee is made to that effect. Drug information contained herein may be time sensitive. [employer] information has been compiled for use by healthcare practitioners and consumers in the [place] and therefore [employer] does not warrant that uses outside of the [place] are appropriate, unless specifically indicated otherwise. [employer] drug information does not endorse drugs, diagnose patients or recommend therapy. [employer] drug information isan informational resource designed to assist licensed healthcare practitioners in caring for their p atients and/or to serve consumers viewing this service as a supplement to, and not a substitute for, the expertise, skill, knowledge and judgment of healthcare practitioners. The absence of a warningfor a given drug or drug combination in no way should be construed to indicate that the drug or drug combination is safe, effective or appropriate for any given patient. [facility] does not assume any responsibility for any aspect of healthcare administered with the aid of information [facility] provides. The information contained herein is not intended to cover all possible uses, directions, precautions, warnings, drug interactions, allergic reactions, or adverse effects. If you have questions about the drugs you are taking, check with your doctor, nurse or pharmacist. Copyright 8144-2661 [employer]. Version: 10.. Revision Date: 05/30/2018. Education Materials COPD Flare You have had a flare-up of your COPD. COPD (chronic obstructive pulmonary disease) is a common lung disease. It causes your airways to get irritated and narrower. This makes it harder for you to breathe. Emphysema and chronic bronchitis are both types of COPD. This is a long-term (chronic) condition. This means you always have it. Sometimes it gets worse. When this happens, it is called a flare-up. Symptoms of COPD People with COPD may have symptoms most of the time. In a flare-up, your symptoms get worse. These symptoms may mean you are having a flare-up: Shortness of breath, shallow or rapid breathing, or wheezing that gets worse Lung infection Cough that gets worse More mucus, thicker mucus or mucus of a different color Tiredness, less energy, or trouble doing your normal activities Fever Chest tightness Your symptoms don t get better even when you use your normal medicines, inhalers, and nebulizer Trouble talking You feel confused Causes of flare-ups Unfortunately, a flare-up can happen even if you did everything right. And even if you followed your healthcare provider s instructions. Some causes of flare- ups are: Smoking or secondhand smoke Colds, the flu, or respiratory infections Air pollution Sudden change in the weather Dust, irritating chemicals, or strong fumes Not taking your medicines as prescribed Home care Here are some things you can do at home to treat a flare-up: Try not to panic. This makes it harder to breathe, and keeps you from doing the right things. Don t smoke or be around others who are smoking. Try to drink more fluids than normal during a flare-up, unless your healthcare provider has told you not to because of heart and kidney problems. More fluids can help loosen the mucus. Use your inhalers and nebulizer, if you have one, as you have been told to. If you were given antibiotics, take them until they are used up or your provider tells you to stop.It s important to finish the antibiotics, even though you feel better. This will make sure the infection has cleared. If you were given prednisone or another steroid, finish it even if you feel better. Preventing a flare-up Flare-ups happen. But the best way to treat one is to prevent it before it starts. Here are some pointers: Don t smoke or be around others who are smoking. Take your medicines as discussed with your healthcare provider. Talk with your provider about getting a flu shot every year. Also find out if you need a pneumonia shot. If there is a weather advisory warning to stay indoors, try to stay inside when possible. Try to eat healthy, exercise, and get plenty of sleep. Try to stay away from things that normally set you off. These include dust, chemical fumes, hairsprays, or strong perfumes. Follow-up care Follow up with your healthcare provider, or as advised. If a culture was done, you will be told if your treatment needs to be changed. You can call as directed for the results. If X-rays were done, you will be told of any new findings that may affect your care. Call 911 Call 911 if any of these occur: You have trouble breathing You feel confused or it s hard to wake you up You faint or lose consciousness You have a rapid heart rate You have new pain in your chest, arm, shoulder, neck, or upper back When to seek medical advice Call your healthcare provider right away if any of these occur: Wheezing or shortness of breath gets worse You need to use your inhalers more often than normal without relief Fever of 100.4 F (38 C) or higher, or as directed by your healthcare provider Coughing up lots of dark-colored or bloody mucus (sputum) Chest pain with each breath You don't start to get better within 24 hours Swelling of your ankles gets worse Dizziness or weakness 4928-2427 [employer]. [address] [place] [address], [place] [address]. All rights reserved. This information is not intended as a substitute for professional medical care. Always follow yourhealthcare professional's instructions. RSV (Respiratory Syncytial Virus) Infection RSV (respiratory syncytial virus) is a common cause of respiratory infections in people of all ages. The infection occurs more often in the winter and early spring. RSV is so common that almost all children have had the virus by age 2. Older adults and people who have weakened immune systems can get another infection later in life as their initial immunity to RSV decreases. RSV symptoms are usually mild. But it can be a serious problem in high-risk infants, young children, and older adults. These groups may have more serious infections and trouble breathing. How RSV spreads RSV spreads easily when people with the infection cough or sneeze. It also spreads by direct contact with an infected person. For example, by kissing a child with the virus. And, the virus can live on hard surfaces. A person can get the infection by touching something with the virus on it. For example, crib rails or door knobs. It spreads quickly in group settings, such as daycare and schools. Symptoms of RSV Most babies and children with an RSV infection have the same symptoms they might have with a cold or flu. These include a stuffy or runny nose, a cough, headache, and a low-grade fever. Older adults may get pneumonia. Treating RSV There is no specific treatment for RSV in most cases. Antibiotics are not used unless a bacterial infection is present. Try the following to relieve some of your child's symptoms: Ask your child s healthcare provider or nurse about lowering your child's fever. You should know what medicine to use and how much and how often to use it. Make sure your child isn't wearing too muchclothing. If your child is old enough, give him or her fluids, such as water and juice. Remove mucus from your s nose with a rubber bulb suction device. Be gentle to avoid causing more swelling and discomfort. Ask your child s provider or nurse for instructions. Don t let anyone smoke around your child. Infants and children with severe symptoms are hospitalized. They are watched closely and may receive the following treatment: IV (intravenous) fluids Oxygen Suctioning of mucus Breathing treatments Anti-inflammatory medicine such as steroids Children with very serious breathing problems have a breathing tube inserted (intubation). This is attached to a machine (ventilator) that helps them breathe. Call your child's provider right away if your child has any of the following: Fever, as directed by your child's provider, or: oIn an younger than 12 weeks old, a fever of 100.4 F (38.0 C) or higher oIn a child younger than 2 years old, a fever that lasts more than 24 hours oIn a child age 2 or older, a fever that lasts more than 3 days oIn a child of any age, repeated fevers of 104 F (40.0 C) or higher oA seizure with a high fever A cough Wheezing, breathing faster than usual, or trouble breathing Flaring of the nostrils or straining of the chest or stomach while breathing Skin around the mouth or fingers turning bluish Restlessness or irritability, unable to be soothed Trouble eating, drinking, or swallowing Shortness of breath Needing to sit upright (in bed or in a chair) to catch his or her breath Preventing RSV infection To help prevent the infection: Clean your hands before and after holding or touching your child. Alcohol-based hand reheater helper are recommended. Or wash your hands with warm water and soap for at least 15 to 30 seconds. Clean all surfaces with disinfectant reheater helper or wipes. Teach your child to keep his or her hands clean. Have your child wash his or her hands often or usealcohol-based hand night cleaner. Teach them wash their hands for as long as it takes to sing the alphabet song or the Happy Birthday song. Have other family members or caregivers clean their hands before holding or touching your child. Closely watch your own health and that of family members and your child s playmates. Try to preventcontact between your child and those with a cold or fever. Don t smoke around your child. Ask your child's healthcare provider if your child is at risk for RSV. If your child is at risk, heor she may get shots (injections) during RSV season to help prevent the illness. 6840-8605 [employer]. [address] [place] [address], [place] [address]. All rights reserved. This information is not intended as a substitute for professional medical care. Always follow yourhealthcare professional's instructions. Additional Information VACCINATE! IT SAVES LIVES! Members of the community who have not yet received the COVID-19 vaccine and would like to receive it can visit one of [facility] vaccine clinics. There are many vaccine clinic locations within the [facility]. For locations and available times, please visit [email or web address]. It is important to note that some COVID mobile vaccine clinics are held outdoors and may be canceled in rainy orstormy conditions. To learn more about pediatric vaccinations (ages 5-11), we invite you to visit the [facility] webpage. [email or web address] learn more about the COVID-19 vaccine, we invite you to visit the [facility] website for a list of frequently asked questions. [email or web address] [facility] Patient Portal Access Instructions: Stay connected with your healthcare team and access your personal medical information anytime with the [facility] Patient Portal. If you would like a full copy of your medical records please contact the [facility] Medical Records Department Sunday through Sunday between 8a.m. and 4:30p.m. Please follow the directions below to access the portal: 1.Access the email account you provided upon registration to the hospital.2.Look for an invitation email from [facility].3.Open the email and access the invitation link: Accept Invitation to [facility]4.Fill in the required meeks to create your account. Sign into www.[email or web address], Mobile Secretary with your username and password that you created in the above steps to stay up to date. You can then view a summary of results, a summary of your visits, and the ability to download your summaries to your computer or send the information securely to a physician. Remember that your healthcare information is confidential, so carefully consider who you will allow to register on the [facility] Patient Portal for access to your information. You can also access the [facility] Patient Portal on the [employer] parul. Simply click on Health Records under [employer] and then click on the [employer] logo. HOW TO SAFELY DISPOSE OF PRESCRIPTION MEDICATIONS Please use one of the following methods to safely dispose of your unused medications. 1.Use a drug disposal kit: the drug disposal pouch allows you to safely discard your old and unuseddrugs. Ask your nurse to give you one when you are discharged.2.Visit a local take-back location: Many local pharmacies and police departments have programs that collect old and unwanted prescriptiondrugs. Call your local pharmacy or go to http://openPeople.[employer]/2D3Vo0i to find one close to you.3.Make use of household items: Use cat litter or old coffee grounds to dispose medications if other options arenot available. Mix your drugs with these household products, seal them in an airtight container andthrow it into the garbage. Call [facility]: [phone] to be sure your drugs can be disposed of in this way. Some medicines may require a different approach.4.Never flush your medications down the toilet. IF YOU HAVE BEEN PRESCRIBED AN OPIOIDS FOR PAIN If you have been prescribed an opioid (such as hydrocodone, oxycodone or morphine), it is critical to understand the possible side effects and risks of opioid pain medications. Even when taken as directed, opioids can have several side effects including: Tolerance, meaning you might need to take more of a medication for the same pain relief. Nausea, vomiting and/or constipation. Sleepiness, dizziness, dry mouth, confusion, depression or itching. Physical dependence, meaning you have withdrawal symptoms when a medication is stopped ? this can develop within a few days. KNOW YOUR RESPONSIBILITIES It is important to know exactly how much and how often to take the opioid pain medications you are prescribed. Never take opioids in higher amounts or more often than prescribed. Do not combine opioids with alcohol or other drugs that cause drowsiness, such as benzodiazepines, also known as benzos,including diazepam and alprazolam, muscle relaxants or sleep aids. Never sell or share prescriptionopioids. This is illegal. Store opioids in a secure place and out of reach of others (including children, family, friends and visitors). The last page(s) of this document has been signed and retained as a CHART COPY Signatures Patient Education Materials COPD Flare RSV (Respiratory Syncytial Virus) Medication Leaflets prednisone My discharge plan and instructions have been reviewed and explained to me and I,RAUDEL VEGA Aunderstand my current condition and have read and understand these discharge instructions. I have received a written copy of the plan/instructions. If I have questions, I am aware that I should contact my doctor. Patient/Certified Pathology Assistant Signature: Date/Time: Relationship to Patient: Witness Name/Signature: Date/Time: [facility]12-10-2022 Note ORIGINAL EXAMINATION: TWO XRAY VIEWS OF THE CHEST 02/11/2022 10:37 am COMPARISON: Prior chest x-ray dated 05/12/2019. HISTORY: ORDERING SYSTEM PROVIDED HISTORY: Reason for Exam: SOB/Cough/Fever FINDINGS: The cardiomediastinal silhouette demonstrates a normal appearance on frontal view. Lateral view demonstrates dilation of the right pulmonary artery possibly indicative of pulmonary arterial hypertension. The lungs are hyperinflated with flattened diaphragms and increased retrosternal airspace on the basis of underlying emphysema/COPD change. No consolidative opacity is identified. There is no pleural effusion or pneumothorax. No free air seen beneath the level of the diaphragm. The bony thorax appears acutely intact. IMPRESSION: No evidence of an acute process. Hyperinflated lungs on the basis of underlying emphysema/COPD change. Prominent pulmonary artery on lateral view indicative of pulmonary arterial hypertension. Interpreted by: Salina Yu MD Preliminary Report By: Salina Yu MD Electronically signed By Salina Yu MD Dictated Date: 02/11/2022 10:47:33 AM Prelim Date: 02/11/2022 10:50:09 AM Sign Date: 02/11/2022 10:50:09 AM Ordering Provider: EDITH PAIGE [facility]12-10-2022 Note ORIGINAL EXAMINATION: TWO XRAY VIEWS OF THE CHEST 02/11/2022 10:37 am COMPARISON: Prior chest x-ray dated 05/12/2019. HISTORY: ORDERING SYSTEM PROVIDED HISTORY: Reason for Exam: SOB/Cough/Fever FINDINGS: The cardiomediastinal silhouette demonstrates a normal appearance on frontal view. Lateral view demonstrates dilation of the right pulmonary artery possibly indicative of pulmonary arterial hypertension. The lungs are hyperinflated with flattened diaphragms and increased retrosternal airspace on the basis of underlying emphysema/COPD change. No consolidative opacity is identified. There is no pleural effusion or pneumothorax. No free air seen beneath the level of the diaphragm. The bony thorax appears acutely intact. IMPRESSION: No evidence of an acute process. Hyperinflated lungs on the basis of underlying emphysema/COPD change. Prominent pulmonary artery on lateral view indicative of pulmonary arterial hypertension. Interpreted by: Salina Yu MD Preliminary Report By: Salina Yu MD Electronically signed By Salina Yu MD Dictated Date: 02/11/2022 10:47:33 AM Prelim Date: 02/11/2022 10:50:09 AM Sign Date: 02/11/2022 10:50:09 AM Ordering Provider: [facility]12-10-2022 SARS-CoV-2 (COVID-19) RNA GALEN+probe Ql (Nph)Negative *NA* (02/11/22 10:16 AM)AO Auto Urine [id number] Evaluation + Plan noteExtracted from: Title:IR Pre-Procedure H&P Author:SULEIMAN PAIZ PA-C Date:11/22/21 IR PREPROCEDURE H&P UPDATE IF A HISTORY AND PHYSICAL EXAMINATION HAS BEEN COMPLETED PRIOR TO ADMISSION TO THE HOSPITAL, AN UPDATED EXAMINATION MUST BE COMPLETED AND DOCUMENTED WITHIN 24 HOURS AFTER ADMISSION OR REGISTRATION BUT BEFORE A SURGICAL PROCEDURE. I have examined the patient, reviewed the H&P, and there are no changes unless noted below: _ The most recent H&P/Office Note was performed on 11/14/2021 and can be found on paper, which has been scanned into the [facility] PACS/RIS system. Radha Paiz PA-C Interventional Radiology Pager: [phone] IR dept: [phone] Available on [facility] Future Appointments Appointment Date:11/24/2021 01:30:00 PM Scheduled Provider: Location:PAIN Appointment Type:PM EMG/NCV 1 Extremity [facility] 09-20-2022 Note* Lon Lopez: SIGN, AUTHOR, SIGN, AUTHOR, PERFORM Event Display: IR Procedure Record Authored Date: IR Procedure Record Summary Primary Physician: LUIS ETIENNE PA-C Finalized Date/Time: 11/22/21 09:13:13 Pt. Name: RAUDEL VEGA Namita NavarroB./Sex: 1960 Male Med Rec #: [id number] Physician: Financial #: [id number] Pt. Type: O Room/Bed: / Admit/Disch: 11/22/21 06:51:25 - Institution: Allergies identified in patient's electronic medical record at time of printing on 11/22/21 Entry 1 Substance NKA Reaction Type Allergy Last Modified By: DB France 10/06/19 16:11:13 Case Attendance- IR Entry 1 Entry 2 Entry 3 Case Attendee LUIS ETIENNE Jacque M. Herrick, Rad Tech Kelli PA-C L Role Performed Primary Surgeon Scrub Technologist Scrub Technologist Details Time In 11/22/21 08:33:00 11/22/21 08:33:00 11/22/21 08:33:00 Time Out 11/22/21 09:03:00 11/22/21 09:03:00 11/22/21 09:03:00 Procedure/Preference IR Aspiration or Inj IR Aspiration or Inj IR Aspiration or Inj Card Large Joints SN Large Joints SN Large Joints SN Last Modified By: Lon Lopez Rad Tech Kelli Herrick, Rad Tech Kelli L 11/22/21 08:57:52 L 11/22/21 08:58:17 L 11/22/21 08:57:52 Entry 4 Case Attendee Mildred Gaines Role Performed Classroom Paraprofessional 1 Details Time In 11/22/21 08:33:00 Time Out 11/22/21 09:03:00 Procedure/Preference IR Aspiration or Inj Card Large Joints SN Last Modified By: Lon Lopez 11/22/21 08:58:04 Radiology Procedures- IR Entry 1 Procedure/Preference IR Aspiration or Inj Actual Procedure IR ASPIRATION OR INJ Card Large Joints SN LARGE JOINTS SN Primary Procedure Yes Primary Surgeon LUIS ETIENNE PA-C Anesthesia/Sedation Local Type Additional Procedure Times Start 11/22/21 08:45:00 Stop 11/22/21 08:56:00 Specialty Service SN Radiology Procedure EBL 0 mL Last Modified By: Lon Lopez 11/22/21 08:58:52 Radiology Procedure Details - IR Entry 1 Radiology Sedation Case Times Sedation Total Time 0 Radiology - Fluid/Drainage Radiology Contrast Contrast Used? Yes Dose 2 mL Medication OMNIPAQUE 350 50ML 10/PK Y-540 Radiology Flouroscopy Fluoroscopy Used? Yes Fluoro Dose (mGy) 7.6 Fluoro Time 6 sec Radiology Local Local Used? Yes Local Type: lidocaine 1% Local Dose 3ml Radiology Procedure Site Site Condition No complications Dressing Type Bandaids Technologist Notes DEPO MEDROL 1CC 6CCS BUPIV 3CC LIDO1% 22G SPINAL NEEDLE Last Modified By: Lon Lopez 11/22/21 09:11:09 General Case Data - IR Entry 1 Case Information Room IR 16 Case Level IR Level 1 Wound Class None Specialty SN Radiology Procedure ASA Class None Diagnosis Preop Diagnosis PAIN RT HIP Postop Same As Preop Yes Postop Diagnosis PAIN RT HIP Last Modified By: Lon Lopez 11/22/21 08:56:20 Procedure Case Times- IR Entry 1 Patient In Procedure Patient In OR 11/22/21 08:33:00 Patient Out of OR 11/22/21 09:03:00 Procedure Start/Stop Procedure Start Time 11/22/21 08:45:00 Procedure Stop Time 11/22/21 08:56:00 Last Modified By: Lno Lopez 11/22/21 08:57:49 Immediate Post Procedure Note - IR Entry 1 Immediate Post Yes Findings Right hip injection Procedure Note displayed for Physician to review Closure Technique Closure Technique Other than Primary Last Modified By: Lon Lopez 11/22/21 08:57:41 Immediate Post Procedure Note - IR Signed By: LUIS ETIENNE PA-C 11/22/21 08:56 Allergy Information- IR Entry 1 Allergies Reviewed? Yes Last Modified By: Lon Lopez 11/22/21 08:44:33 Radiology Protocols/Time Out- IR Entry 1 Preprocedure Clinician Verifies Correct patient ID When Clinically Confirmation of correct using name & date Indicated side(s) and site(s), or MRN, Accurate Correct diagnostic and procedure, complete radiology tests Informed Consent, H & P available, Required update immediately blood products, prior to procedure, if implants, devices applicable and/or special equipment available OR/Procedure Room/Bedside Time 11/22/21 08:45:00 Clinician Verifies Correct patient identity including EMR & records using name and date or medical record number, Accurate procedure consent form, Correct patient position, Necessary equipment is available, Anticipated non-routine events with surgical team (case duration, estimated blood loss, patient specific concerns)., Carrero patient factors for recovery and management identified with surgical team. When Applicable Confirmation correct Team Members Lon Lopez side and site marked, Present for Time Out L Relevant images and results are properly labeled and appropriately displayed, Alcohol based prep dry, Double verification of sterility indicators complete Instrument Sterility Team Members Mildred Gaines Verifying Sterility Procedure IR Aspiration or Inj Large Joints SN Last Modified By: Lon Lopez 11/22/21 08:55:57 Skin Prep- IR Entry 1 Procedure IR Aspiration or Inj Large Joints SN Skin Prep Prep Area Hip Side Right By Mildred Gaines Prep Agents Chloraprep Hair Removal Method N/A Last Modified By: Lon Lopez 11/22/21 08:54:57 Patient Positioning- IR Entry 1 Procedure IR Aspiration or Inj Body Position OP Supine Large Joints SN Feet Uncrossed? n/a Pressure Points n/a Checked Last Modified By: Lon Lopez 11/22/21 08:55:07 Radiology Procedure Plan - IR Entry 1 Radiology - Nursing Care Plan Radiology - Action Plan Action Plan - Patient demonstrates Outcome Statement knowledge of the expected reseponses to the invasive procedure, Patient's value system, lifestyle, ethnicity, and culture are considered, respected, and incorporated in the perioperative plan of care., Patient is free from signs and symptoms of infection., Patient is free from signs and symptoms of injury related to positioning., Patient is free from signs and symptoms of chemical injury., Patient receives appropriate medication(s), safely administered during the perioperative period., Patient is free from signs and symptoms of injury caused by extraneous objects (equipment, instrumentation, sponges, or sharps)., Patient is free from signs and symptoms of electrical injury. Outcomes Met? Yes Customer Relationship Specialist Lon Lopez Procedure Plan Last Modified By: Lon Lopez 11/22/21 08:55:25 Case Comments <None> Finalized By: Lon Lopez Document Signatures Signed By: Lon Lopez 11/22/21 09:13 Lon Lopez 11/22/21 09:13 [facility] 09-20-2022 Hospital Discharge instructions Patient Education 11/22/2021 08:48:30 Radiology- Procedure/Biopsy 06/18/2019 (CUSTOM) [place] Radiology Procedure/Biopsy Discharge Instructions Interventional Radiology [facility] Imaging Services [address] [place] [address] Today, you had a . This procedure/biopsy was done to help your doctor diagnose and treat the signs and symptoms you have been experiencing. These instructions should be followed after your procedure to reduce the chance of experiencing complications. Please follow the instructions below to reduce the chance of experiencing complications. Diet: Resume your normal diet as tolerated. Drink extra fluids. Activity: Rest for the remainder of the day. You may resume your normal activity tomorrow. You may bathe/shower after 24 hours. Do not soak or submerge site (including swimming or hot tubs) until a scab forms. No heavy lifting, pushing, or straining. Dressing: Check the site for bleeding. Apply pressure to the site if bleeding excessively and call your physician. Change the band aid as needed; it can be removed after 24 hours. Keep the site dry at all times until a scab forms over the site. Pain Control: The puncture site may be sore for 1 to 2 days following the procedure. Kefu-gjp-xzchhjx pain medication should be used for pain or discomfort. Please check with the physician who ordered this procedure for you for their specific recommendations. If your pain is not relieved or becomes more severe, notify the physician who sent you for this procedure. If you were sedated for this procedure: Avoid alcoholic beverages for 24 hours after your procedure. Do not drive or operate heavy machinery for 24 hours after your procedure. Do not make any legal decisions for 24 hours after your procedure. Medication: Please resume on . When to seek medical help: Lightheadedness, dizziness, or fainting. Severe pain or swelling. Severe nausea or vomiting. Infection: fever greater than 101 degrees, chills, redness, warmth, swelling, bleeding, or pus frompuncture site. If you experience any of these issues during the first 24 hours, please follow the instruction below: 8:00 am- 5:00 pm call [phone] After 5:00 pm call [phone] After 24 hours, contact the physician who ordered this procedure for you. Obtaining test results: Please make an appointment with your doctor to obtain your test results. They are usually availablewithin 4 to 7 business days. Do not assume everything is normal if you have not heard from your doctor or medical facility. It is important for you to follow up on all of your test results. Special Instructions: Follow Up Care 11/17/2021 16:27:09 With:Follow up with primary care provider Address:Unknown When: Unknown [facility] 09-20-2022 Note IR Procedure Record Summary Primary Physician: LUIS ETIENNE PA-C Finalized Date/Time: 11/22/21 09:13:13 Pt. Name: RAUDEL VEGA Namita /Sex: 1960 Male Med Rec #: [id number] Physician: Financial #: [id number] Pt. Type: O Room/Bed: / Admit/Disch: 11/22/21 06:51:25 - Institution: Allergies identified in patient's electronic medical record at time of printing on 11/22/21 Entry 1 Substance NKA Reaction Type Allergy Last Modified By: DB France 10/06/19 16:11:13 Case Attendance- IR Entry 1 Entry 2 Entry 3 Case Attendee LUIS ETIENNE Jacque M. Herrick, Rad Tech Kelli PA-C L Role Performed Primary Surgeon Scrub Technologist Scrub Technologist Details Time In 11/22/21 08:33:00 11/22/21 08:33:00 11/22/21 08:33:00 Time Out 11/22/21 09:03:00 11/22/21 09:03:00 11/22/21 09:03:00 Procedure/Preference IR Aspiration or Inj IR Aspiration or Inj IR Aspiration or Inj Card Large Joints SN Large Joints SN Large Joints SN Last Modified By: Lon Lopez Rad Tech Kelli Herrick, Rad Tech Kelli L 11/22/21 08:57:52 L 11/22/21 08:58:17 L 11/22/21 08:57:52 Entry 4 Case Attendee Mildred Gaines Role Performed Classroom Paraprofessional 1 Details Time In 11/22/21 08:33:00 Time Out 11/22/21 09:03:00 Procedure/Preference IR Aspiration or Inj Card Large Joints SN Last Modified By: Lon Lopez 11/22/21 08:58:04 Radiology Procedures- IR Entry 1 Procedure/Preference IR Aspiration or Inj Actual Procedure IR ASPIRATION OR INJ Card Large Joints SN LARGE JOINTS SN Primary Procedure Yes Primary Surgeon LUIS ETIENNE PA-C Anesthesia/Sedation Local Type Additional Procedure Times Start 11/22/21 08:45:00 Stop 11/22/21 08:56:00 Specialty Service SN Radiology Procedure EBL 0 mL Last Modified By: Lon Lopez 11/22/21 08:58:52 Radiology Procedure Details - IR Entry 1 Radiology Sedation Case Times Sedation Total Time 0 Radiology - Fluid/Drainage Radiology Contrast Contrast Used? Yes Dose 2 mL Medication OMNIPAQUE 350 50ML 10/PK Y-540 Radiology Flouroscopy Fluoroscopy Used? Yes Fluoro Dose (mGy) 7.6 Fluoro Time 6 sec Radiology Local Local Used? Yes Local Type: lidocaine 1% Local Dose 3ml Radiology Procedure Site Site Condition No complications Dressing Type Bandaids Technologist Notes DEPO MEDROL 1CC 6CCS BUPIV 3CC LIDO1% 22G SPINAL NEEDLE Last Modified By: Lon Lopez 11/22/21 09:11:09 General Case Data - IR Entry 1 Case Information Room IR 16 Case Level IR Level 1 Wound Class None Specialty SN Radiology Procedure ASA Class None Diagnosis Preop Diagnosis PAIN RT HIP Postop Same As Preop Yes Postop Diagnosis PAIN RT HIP Last Modified By: Lon Lopez 11/22/21 08:56:20 Procedure Case Times- IR Entry 1 Patient In Procedure Patient In OR 11/22/21 08:33:00 Patient Out of OR 11/22/21 09:03:00 Procedure Start/Stop Procedure Start Time 11/22/21 08:45:00 Procedure Stop Time 11/22/21 08:56:00 Last Modified By: Lon Lopez 11/22/21 08:57:49 Immediate Post Procedure Note - IR Entry 1 Immediate Post Yes Findings Right hip injection Procedure Note displayed for Physician to review Closure Technique Closure Technique Other than Primary Last Modified By: Lon Lopez 11/22/21 08:57:41 Immediate Post Procedure Note - IR Signed By: LUIS ETIENNE PA-C 11/22/21 08:56 Allergy Information- IR Entry 1 Allergies Reviewed? Yes Last Modified By: Lon Lopez 11/22/21 08:44:33 Radiology Protocols/Time Out- IR Entry 1 Preprocedure Clinician Verifies Correct patient ID When Clinically Confirmation of correct using name & date Indicated side(s) and site(s), or MRN, Accurate Correct diagnostic and procedure, complete radiology tests Informed Consent, H & P available, Required update immediately blood products, prior to procedure, if implants, devices applicable and/or special equipment available OR/Procedure Room/Bedside Time 11/22/21 08:45:00 Clinician Verifies Correct patient identity including EMR & records using name and date or medical record number, Accurate procedure consent form, Correct patient position, Necessary equipment is available, Anticipated non-routine events with surgical team (case duration, estimated blood loss, patient specific concerns)., Carre[place] patient factors for recovery and management identified with surgical team. When Applicable Confirmation correct Team Members Lon Lopez side and site marked, Present for Time Out L Relevant images and results are properly labeled and appropriately displayed, Alcohol based prep dry, Double verification of sterility indicators complete Instrument Sterility Team Members Mildred Gaines Verifying Sterility Procedure IR Aspiration or Inj Large Joints SN Last Modified By: Lon Lopez 11/22/21 08:55:57 Skin Prep- IR Entry 1 Procedure IR Aspiration or Inj Large Joints SN Skin Prep Prep Area Hip Side Right By Mildred Gaines Prep Agents Chloraprep Hair Removal Method N/A Last Modified By: Lon Lopez 11/22/21 08:54:57 Patient Positioning- IR Entry 1 Procedure IR Aspiration or Inj Body Position OP Supine Large Joints SN Feet Uncrossed? n/a Pressure Points n/a Checked Last Modified By: Lon Lopez 11/22/21 08:55:07 Radiology Procedure Plan - IR Entry 1 Radiology - Nursing Care Plan Radiology - Action Plan Action Plan - Patient demonstrates Outcome Statement knowledge of the expected reseponses to the invasive procedure, Patient's value system, lifestyle, ethnicity, and culture are considered, respected, and incorporated in the perioperative plan of care., Patient is free from signs and symptoms of infection., Patient is free from signs and symptoms of injury related to positioning., Patient is free from signs and symptoms of chemical injury., Patient receives appropriate medication(s), safely administered during the perioperative period., Patient is free from signs and symptoms of injury caused by extraneous objects (equipment, instrumentation, sponges, or sharps)., Patient is free from signs and symptoms of electrical injury. Outcomes Met? Yes Customer Relationship Specialist Lon Lopez Procedure Plan Last Modified By: Lon Lopez 11/22/21 08:55:25 Case Comments Finalized By: Lon Lopez Document Signatures Signed By: Lon Lopez 11/22/21 09:13 Lon Lopez 11/22/21 09:13 [id number] Summary of episode note Discharge Instructions Thank you for allowing [facility] to assist you with your healthcare needs. The following is importantdischarge information regarding your hospital visit. Your Care Team JAUN OLSON DO What to do next Scheduled Follow-Up Appointments Appointment Type When Where Contact InformationPM EMG/NCV 1 Extremity 11/24/2021 01:30 PM EDT [facility] [address] [place] [address]- Follow Up Appointments Follow Up with Follow up with primary care provider When The Following Activity and Diet Have Been Ordered for You No qualifying data available. No qualifying data available. The Following Equipment Has Been Ordered for You No qualifying data available. The Following Treatments Have Been Ordered for You Discharge Labs No qualifying data available. Discharge Radiology No qualifying data available. Other Therapies No qualifying data available. Post Acute Orders No qualifying data available. Someone Will Contact You Regarding These Home Health Referrals No home referrals have been ordered for you. No one will call you. Allergies NKA Medications Please ask your primary doctor or pharmacist before taking any other medication not listed, including over the counter drugs, herbal medications, vitamins and or supplements as they may interact withyour home medications. What How Much When Why Instructions Last Dose Unchanged acetaminophen (Tylenol 325 mg oral tablet) 2 tab(s) by mouth Every 4 hours as needed for Pain, scale 1-4 ( Mild ) Unchanged albuterol (albuterol MDI (90 mcg/ inh) CFC free inhalation aerosol) 2 puff(s) by inhalation Every 4 hours as needed for as needed for wheezing Acute exacerbation of COPD Duration: 30 Days Unchanged albuterol (albuterol 2.5 mg/ 3 mL (0.083%) inhalation solution) 3 Milliliter Nebulized inhalation Every 6 hours COPD - Chronic obstructive pulmonary disease Duration: 30 Days Unchanged ascorbic acid (Vitamin C 500 mg oral tablet) 1 tab(s) by mouth Once a day Unchanged cholecalciferol (Vitamin D3 25 mcg (1000 intl units) oral capsule) 1 cap by mouth Every day Unchanged cyclobenzaprine (cyclobenzaprine 10 mg oral tablet) 1 tab(s) by mouth Three (3) times a day as needed for for muscle spasm Unchanged cyclobenzaprine (cyclobenzaprine 10 mg oral tablet) 1 tab(s) by mouth Three (3) times a day as needed for for muscle spasm Unchanged fluticasone/ umeclidinium/ vilanterol (Trelegy Ellipta 100 mcg-62.5 mcg-25 mcg/ inh inhalation powder) 1 puff(s) by inhalation Once a day Duration: 30 Days at the same time every day. Following administration, rinse mouth with water after use (do not swallow). Unchanged gabapentin (gabapentin 100 mg oral capsule) TAKE 1 CAPSULE BY MOUTH AT BEDTIME then increase to one TWICE DAILY as drowsiness permits Unchanged hydrOXYzine (hydrOXYzine hydrochloride 10 mg oral tablet) 1 tab(s) by mouth Two (2) times a day Duration: 30 Days Unchanged lisinopril (lisinopril 5 mg oral tablet) 1 tab(s) by mouth Once a day Hypertension Duration: 30 Days Unchanged Misc Medication (Breat[place] Mdi Spacer) use DIRECTED Unchanged multivitamin (Multivitamin) 1 tab(s) by mouth Every day Unchanged omega-3 polyunsaturated fatty acids ([place]-3 Fish Oil) 1,000 Milligram by mouth Once a day Unchanged pseudoephedrine (Sudafed) 1 tab by mouth Every 6 hours Unchanged zinc sulfate (Zinc) 1 tab by mouth Once a day Please take this list to your next doctor s visit. Bring all medications you take, including over the counter medications, herbals and other supplements with you to your doctor s visit. Patients and families are reminded to discard old lists and to update any records with all medication providers or retail pharmacies. Education Materials [place] Radiology Procedure/Biopsy Discharge Instructions Interventional Radiology [facility] [address] [address] Today, you had a . This procedure/biopsy was done to help your doctor diagnose and treat the signs and symptoms you have been experiencing. These instructions should be followed after your procedure to reduce the chance of experiencing complications. Please follow the instructions below to reduce the chance of experiencing complications. Diet: Resume your normal diet as tolerated. Drink extra fluids. Activity: Rest for the remainder of the day. You may resume your normal activity tomorrow. You may bathe/shower after 24 hours. Do not soak or submerge site (including swimming or hot tubs) until a scab forms. No heavy lifting, pushing, or straining. Dressing: Check the site for bleeding. Apply pressure to the site if bleeding excessively and call your physician. Change the band aid as needed; it can be removed after 24 hours. Keep the site dry at all times until a scab forms over the site. Pain Control: The puncture site may be sore for 1 to 2 days following the procedure. Xeks-xas-wqprldc pain medication should be used for pain or discomfort. Please check with the physician who ordered this procedure for you for their specific recommendations. If your pain is not relieved or becomes more severe, notify the physician who sent you for this procedure. If you were sedated for this procedure: Avoid alcoholic beverages for 24 hours after your procedure. Do not drive or operate heavy machinery for 24 hours after your procedure. Do not make any legal decisions for 24 hours after your procedure. Medication: Please resume on . When to seek medical help: Lightheadedness, dizziness, or fainting. Severe pain or swelling. Severe nausea or vomiting. Infection: fever greater than 101 degrees, chills, redness, warmth, swelling, bleeding, or pus frompuncture site. If you experience any of these issues during the first 24 hours, please follow the instruction below: 8:00 am- 5:00 pm call [phone] After 5:00 pm call [phone] After 24 hours, contact the physician who ordered this procedure for you. Obtaining test results: Please make an appointment with your doctor to obtain your test results. They are usually availablewithin 4 to 7 business days. Do not assume everything is normal if you have not heard from your doctor or medical facility. It is important for you to follow up on all of your test results. Special Instructions: Additional Information VACCINATE! IT SAVES LIVES! Members of the community who have not yet received the COVID-19 vaccine and would like to receive it can visit one of [facility] vaccine clinics. There are many vaccine clinic locations within the [facility]. For locations and available times, please visit [email or web address] It is important to note that some COVID mobile vaccine clinics are held outdoors and may be canceled in rainy or stormy conditions. To learn more about pediatric vaccinations (ages 5-11), we invite you to visit the [facility] webpage. [email or web address]/[email or web address] learn more about the COVID-19 vaccine, we invite you to visit the [employer] website for a list of frequently asked questions. [email or web address] [facility] Patient Portal Access Instructions: Stay connected with your healthcare team and access your personal medical information anytime with the [facility] Patient Portal.If you would like a full copy of your medical records, please contact the [facility] Medical Records Department, Sunday through Sunday between 8a.m. and 4:30p.m. Please follow the directions below to access the portal: 1.Access the email account you provided upon registration to the [facility].2.Look for an invitation email from [facility].3.Open the email and access the invitation link: Accept Invitation to [facility]4.Fill in the required meeks to create your account. Sign into www.[email or web address] with your username and password that you created in the above steps to stay up to date. You can then view a summary of results, a summary of your visits, and the ability to download your summaries to your computer or send the information securely to a physician. Remember that your healthcare information is confidential, so carefully consider who you will allow to register on the [facility] Patient Portal for access to your information. You can also access the [employer] Patient Portal on the [employer] parul. Simply click on Health Records under [employer] and then click on the [employer] logo. HOW TO SAFELY DISPOSE OF PRESCRIPTION MEDICATIONS Please use one of the following methods to safely dispose of your unused medications. 1.Use a drug disposal kit: the drug disposal pouch allows you to safely discard your old and unuseddrugs. Ask your nurse to give you one when you are discharged.2.Visit a local take-back location: Many local pharmacies and police departments have programs that collect old and unwanted prescriptiondrugs. Call your local pharmacy or go to http://bit.ly/8H3Xv2m to find one close to you.3.Make use of household items: Use cat litter or old coffee grounds to dispose medications if other options arenot available. Mix your drugs with these household products, seal them in an airtight container andthrow it into the garbage. Call [facility]: [phone] to be sure your drugs can be disposed of in this way. Some medicines may require a different approach.4.Never flush your medications down the toilet. IF YOU HAVE BEEN PRESCRIBED AN OPIOID FOR PAIN If you have been prescribed an opioid (such as hydrocodone, oxycodone or morphine), it is critical to understand the possible side effects and risks of opioid pain medications. Even when taken as directed, opioids can have several side effects including: Tolerance, meaning you might need to take more of a medication for the same pain relief. Nausea, vomiting and/or constipation. Sleepiness, dizziness, dry mouth, confusion, depression or itching. Physical dependence, meaning you have withdrawal symptoms when a medication is stopped, can develop within a few days. KNOW YOUR RESPONSIBILITIES It is important to know exactly how much and how often to take the opioid pain medications you are prescribed. Never take opioids in higher amounts or more often than prescribed. Do not combine opioids with alcohol or other drugs that cause drowsiness, such as benzodiazepines, also known as benzos, including diazepam and alprazolam, muscle relaxants or sleep aids. Never sell or share prescription opioids. This is illegal. Store opioids in a secure place and out of reach of others (including children, family, friends and visitors). The last page of this document has been signed and retained as a CHART COPY. Signatures Patient Education Materials Radiology- Procedure/Biopsy 06/18/2019 (CUSTOM) Medication Leaflets My discharge plan and instructions have been reviewed and explained to me and I,RAUDEL VEGA Aunderstand my current condition and have read and understand these discharge instructions. I have received a written copy of the plan/instructions. If I have questions, I am aware that I should contact my doctor. Patient/Certified Pathology Assistant Signature: Date/Time: Relationship to Patient: Witness Name/Signature: [id number] History and physical note IR PREPROCEDURE H&P UPDATE IF A HISTORY AND PHYSICAL EXAMINATION HAS BEEN COMPLETED PRIOR TO ADMISSION TO THE HOSPITAL, AN UPDATED EXAMINATION MUST BE COMPLETED AND DOCUMENTED WITHIN 24 HOURS AFTER ADMISSION OR REGISTRATION BUT BEFORE A SURGICAL PROCEDURE. I have examined the patient, reviewed the H&P, and there are no changes unless noted below: _ The most recent H&P/Office Note was performed on 11/14/2021 and can be found on paper, which has been scanned into the [facility] PACS/RIS system. Radha Paiz PA-C Interventional Radiology Pager: [phone] dept: [phone] Available on Cortext Digitally Signed by RADHA PAIZ PA-C on 11/22/2021 07:27 AM Digitally Signed by LINDA ORSS MD on 11/22/2021 06:26 PM [id number] Hospital Discharge instructions Patient Education 06/15/2021 07:44:26 Epidural Steroid Injection, Care After Epidural Steroid Injection, Care After Refer to this sheet in the next few weeks. These instructions provide you with information about caring for yourself after your procedure. Your health care provider may also give you more specific instructions. Your treatment has been planned according to current medical practices, but problems sometimes occur. Call your health care provider if you have any problems or questions after your procedure. What can I expect after the procedure? After your procedure, it is common to feel a little discomfort at the injection site. Follow these instructions at home: For 24 hours after the procedure: ?Avoid using heat on the injection site. ?Do not take a tub bath, and do not soak in water. ?Do not drive if you received a medicine to help you relax (sedative). If directed, put ice on the injection site: ?Put ice in a plastic bag. ?Place a towel between your skin and the bag. ?Leave the ice on for 20 minutes, 2 3 times a day. Return to your normal activities as told by your health care provider. Ask your health care provider what activities are safe for you. You may remove the bandage (dressing) after 24 hours. Take yczb-nzf-dcylges and prescription medicines only as told by your health care provider. Keep all follow-up visits as told by your health care provider. This is important. Contact a health care provider if: You have a fever. You continue to have pain and soreness around the injection site, even after taking gpll-ssl-iehofkw pain medicine. You have severe, sudden, or lasting nausea or vomiting. Get help right away if: You have severe pain at the injection site that is not relieved by medicines. You develop a severe headache or a stiff neck. You become sensitive to light. You have any new numbness or weakness in your legs or arms. You lose control of your bladder or bowel movements. You have trouble breathing. This information is not intended to replace advice given to you by your health care provider. Make sure you discuss any questions you have with your health care provider. Document Released: 06/06/2011 Document Revised: 02/01/2018 Document Reviewed: 06/06/2016 [employer] Patient Education 2020 Package [employer]ge. 06/15/2021 07:44:11 Spinal Headache Spinal Headache A spinal headache is a severe headache that can happen after a person has had a lumbar puncture or epidural anesthesia. During these procedures, a needle is passed between the bones of the spine. Theheadache usually starts from a few hours to 1 2 days after that. The headache can last for a few days. In rare cases, it can last for more than a week. What are the causes? This condition is caused by a leak of spinal fluid from the spine through the hole that is left by the needle. What are the signs or symptoms? Symptoms of this condition include: A severe headache. A headache that is worse when you sit or stand and better when you lie down. Neck pain and stiffness, especially when tilting your chin toward your chest. Nausea and vomiting. How is this diagnosed? This condition is usually diagnosed based on: Your medical history. Your symptoms. A CT scan or MRI of the brain to help rule out other conditions. How is this treated? Treatment for this condition may include: Replacing fluids that leaked out through the needle hole. Fluids may be replaced by: ?Drinking more fluids. ?Getting fluids through an IV line that is inserted into one of your veins. Caffeine to help reduce your headache. Your health care provider may recommend drinking caffeinatedbeverages such as soda, coffee, or tea. Having an epidural blood patch procedure. In this procedure, a small amount of your blood is injected into the area of the leak in order to seal it. Medicines for pain. Resting and lying flat for a few days. Follow these instructions at home: Take vqdj-noy-gamkjmm and prescription medicines only as told by your health care provider. Drink enough fluids to keep your urine pale yellow. Drink caffeinated beverages as told by your health care provider. Lie down to relieve pain if your pain gets worse when you sit or stand. Return to your normal activities as told by your health care provider. Ask your health care provider what activities are safe for you. Keep all follow-up visits as told by your health care provider. This is important. Contact a health care provider if: You develop nausea and vomiting. Get help right away if: Your pain becomes very severe. Your pain cannot be controlled. You develop a fever. You have a stiff neck. You develop problems with your vision. You lose control of your bowel or bladder (have incontinence). You have trouble walking, you feel weak, or you lose feeling in part of your body. Summary A spinal headache is a severe headache that can happen after a person has had a lumbar puncture or epidural anesthesia. This condition is caused by a leak of spinal fluid from the spine through the hole that is left by the needle. The headache can last for a few days. In rare cases, it lasts for more than a week. Supportive measures, such as drinking more fluid and taking pain medicines, are usually recommended. In some cases, it may be necessary to inject a small amount of your blood to seal the leak. This information is not intended to replace advice given to you by your health care provider. Make sure you discuss any questions you have with your health care provider. Document Released: 08/11/2002 Document Revised: 04/04/2018 Document Reviewed: 04/03/2018 [employer] Patient Education 2020 Package Concierge. Follow Up Care 06/06/2021 15:08:46 With:JULIAN FERNÁNDEZ DO, Orthopedic Address: When: Unknown Comments:FOLLOW UP 06/22/2021 AT [address] [facility] 01-31-2022 Evaluation + Plan note Future Scheduled Tests Radiology* XR Shoulder Minimum 2 Views Left 04/04/21 * XR Spine Lumbar AP/LAT/FLEX/EXT 04/04/21 [facility] 01-31-2022 Evaluation + Plan note Future Scheduled Tests Radiology* XR Shoulder Minimum 2 Views Left 04/04/21 * XR Spine Lumbar AP/LAT/FLEX/EXT 04/04/21 [facility] Evaluation + Plan note Future Appointments Appointment Date:06/28/2022 10:00:00 AM Scheduled Provider:JAUN OLSON DO Location:[facility] Appointment Type:PC Wellness Annual w/Labs [facility] Evaluation noteNo assessment information available [facility] Work Phone: Hospital course Narrative No data available for this section [facility] Hospital Discharge instructions No data available for this section [facility] Hospital Discharge instructionsAdditional Instructions Please use the albuterol inhaler as needed for shortness of breath while you are out and about. Use the DuoNeb up to 4 times a day in the home nebulizer if you have shortness of breath while there. Continue the steroids to reduce inflammation. Return to the ER should you have any further concernsWM[facility] Work Phone: Note* EDITH PAIGE MD: SIGN, VERIFY Event Display: EKG [ED AOH] - CV Authored Date: [facility] Progress note No data available for this section [facility] Reason for referral (narrative)No reason for referral [facility] Work Phone: Summary Purpose Family History No Family History Records FoundNo Family History Records Found No data available for this section No Family History Records FoundNo Family History Records Found Advance Directives No Advanced Directives Records Found Advance Directive Response Recorded Date/ Time Do you have a Healthcare Power of Under [place]? No September 02, 2024 12:52am Chief Complaint and Reason for Visit Chief Complaint Admit Date sob September 02, 2024 12:35 am Additional Source Comments (unrecognized sect ion and content) No Status Records FoundNo Status Records FoundNo Status Records FoundNo Status Records Found INFORMATION SOURCE (unrecogn ized section and content) DATE CREATED AUTHOR 10/01/2018 [facility] DATE CREATED AUTHOR AUTHOR'S ORGANIZ ATION 11/08/2018 [facility] ([place]) DATE CREATED AUTHOR AUTHOR'S ORGANIZ ATION 01/19/2023 [facility] [place] DATE CREATED AUTHOR AUTHOR'S ORGANIZ ATION 09/15/2024 [facility] Care Team (unrecognized sect ion and content) Team Status: Active Member Role/Relationship Status Dates Dr. Jaun Olson DO Primary Care Provider Active Team Status: Inactive Member Role/Relationship Status Dates Dr. Newton Hemphill DO Emergency Provider Active Start: September 02, 2024 End: September 02, 2024 Dr. Jaun Olson DO Primary Care Provider Active Start: September 02, 2024 End: September 02, 2024 Care Team (unrecognized sect ion and content) Care Team Personnel Name: JAUN OLSON DO Position: P4 Physician - Primary Care Med Service: Active Provider Member Role: Primary Care Physician Address: Address: [address] [place] [address] Care Team Related Persons Name: JED PALUA Care Team Personnel Name: JAUN OLSON DO Position: P4 Physician - Primary Care Member Role: Primary Care Physician Address: Address: [address] [place] [address] Name: EDITH PAIGE MD Position: ED Physician Member Role: ED Physician Address: Address: [facility] [address] [place] [address] Care Team Related Persons Name: JED PAULA Goals (unrecognized section and content) Goals may be documented in a n alternate section FOR RECORDS PERTAINING TO PATIENTS WHO ARE OR HAVE BEEN ENROLLED IN A CHEMICAL DEPENDENCY/SUBSTANCEABUSE PROGRAM, SOME INFORMATION MAY BE OMITTED. This clinical summary was aggregated from multiple sources. Caution should be exercised in using it in the provision of clinical care. This summary normalizes information from multiple sources, and as a consequence, information in this document may materially change the coding, format and clinical context of patient data. In addition, data may be omitted in some cases. CLINICAL DECISIONS SHOULD BE BASED ON THE PRIMARY CLINICAL RECORDS. [facility] provides no warranty or guarantee of the accuracy or completeness of information in this document.
[2024-12-18 06:46] LABS: Partial Thromboplast Time 25.4 Seconds (24.1-36.2)
[2024-12-18] MEDS: 0.9% Normal Saline (1000mL) 1,000 ML 999 ML IV (06:52)
[2024-12-18 07:07] LABS: AST(SGOT) 22 U/L (<=37); Alanine Aminotransfer ALT/SGPT 21 U/L (<=46); Albumin, Serum 4.2 g/dL (3.4-4.8); Alkaline Phosphatase 76 U/L (40-129); Anion Gap 11 (5-15); BUN 23 mg/dL (4-19); BUN/Creat Ratio 33.0 RATIO (10-20); Calcium,Total 9.5 mg/dL (7.6-11.0); Carbon Dioxide 22.8 mmol/L (21.0-32.0); Chloride 105 mmol/L (98-108); Estimated Creatinine Clearance 112.98 ml/min (50-250); Globulin 2.6 g/dL (2.2-4.2); Glucose 124 mg/dL (70-99); Potassium 4.2 mmol/L (3.3-5.1); Pro- Brain NATRIURETIC PEPTIDE 109 pg/mL (<=900); Troponin T High Sensitivity 16 ng/L (<=22)
--- NOTE | 2024-12-18 07:15 | RAD_ITS ---
PROCEDURE: CHEST PA AND LATERAL 12/18/2024 REASON FOR EXAM: SOB TECHNIQUE: Procedure Code: RADCXR Modality: DX Procedure: CHEST PA AND LATERAL COMPARISON: September 02, 2024 FINDINGS: Heart size and mediastinal configuration are within normal limits. Central vascularity appears normal. Lung volumes are increased. There is no focal infiltrate or consolidation. There is no pneumothorax or effusion. There is no acute bony abnormality. Aortic calcifications are visible. RAD/Chest PA and Lateral IMPRESSION: Increased lung volumes with no acute infiltrate. Reading Location: [facility]
[2024-12-18 09:14] LABS: Troponin T High Sens 2 HR 16 ng/L (<=22)
== END 2024-12-18 09:50 | disposition home or self-care (01) ==
PROVIDERS: Emergency Provider Emergency Medicine; PCP Family Medicine; Visit Provider Emergency Medicine
DX: J44.1 Chronic obstructive pulmonary disease with (acute) exacerbation (principal); J96.11 Chronic respiratory failure with hypoxia; Z99.81 Dependence on supplemental oxygen; F17.210 Nicotine dependence, cigarettes, uncomplicated
CPT/HCPCS: 36415; 71046; 80053; 83605; 83880; 84484; 85025; 85610; 85730; 87040; 93005; 94640; 96361; 96374; 99285; A4216